=== PATIENT | male | born 1960 | race Caucasian/White ===

== ENCOUNTER → 2017-11-14 | Outpatient (CLI) | payer OTHER ==
[2017-11-14 14:45] LABS: ESTIMATED AVERAGE GLUCOSE 197 MG/DL (60-110); HEMOGLOBIN A1c 8.5 %
== END ==
LOC: M LAB 14:01
DX: E11.9 Type 2 diabetes mellitus without complications (principal)
CPT/HCPCS: 83036

== ENCOUNTER → 2018-03-20 | Outpatient (CLI) | payer OTHER ==
[2018-03-20 07:09] LABS: BASO # 0.1 10^3/uL (0.0-0.2); BASO % 0.5 % (0.0-1.0); EOS # 0.3 10^3/uL (0.0-0.50); EOS % 2.9 % (0.0-3.0); HEMATOCRIT 43.9 % (42.0-52.0); HEMOGLOBIN 14.2 g/dl (13.5-17.5); IMMATURE GRANULOCYTE % 0.5 % (0-3.0); LYMPH # 3.5 10^3/uL (1.5-4.5); LYMPH % 33.5 % (24.0-44.0); MEAN CORPUSCULAR HGB CONC 32.3 g/dl (32.0-36.5); MEAN CORPUSCULAR VOLUME 83.6 fl (80.0-96.0); MONO % 9.2 % (0.0-5.0); NEUTROPHILS # 5.6 10^3/uL (1.8-7.7); NEUTROPHILS % 53.4 % (36.0-66.0); PLATELET COUNT, AUTOMATED 373 10^3/uL (150-450); RED BLOOD COUNT 5.25 10^6/uL (4.30-6.10); RED CELL DISTRIBUTION WIDTH 14.7 % (11.5-14.5); WHITE BLOOD COUNT 10.5 10^3/uL (4.0-10.0)
[2018-03-20 07:26] LABS: ALBUMIN 4.2 GM/DL (3.2-5.2); ALBUMIN/GLOBULIN RATIO 1.14 (1.00-1.93); ALKALINE PHOSPHATASE 76 U/L (45-117); ALT/SGPT 33 U/L (12-78); ANION GAP 8 MEQ/L (8-16); AST/SGOT 20 U/L (7-37); BILIRUBIN,TOTAL 0.5 MG/DL (0.2-1.0); BLOOD UREA NITROGEN 17 MG/DL (7-18); CALCIUM LEVEL 9.2 MG/DL (8.5-10.1); CARBON DIOXIDE LEVEL 25 MEQ/L (21-32); CHLORIDE LEVEL 105 MEQ/L (98-107); CREATININE FOR GFR 1.14 MG/DL (0.70-1.30); GLOMERULAR FILTRATION RATE > 60.0 (>56); GLUCOSE, FASTING 155 MG/DL (70-100); POTASSIUM SERUM 4.2 MEQ/L (3.5-5.1); SODIUM LEVEL 138 MEQ/L (136-145); TOTAL PROTEIN 7.9 GM/DL (6.4-8.2)
[2018-03-20 07:32] LABS: ESTIMATED AVERAGE GLUCOSE 137 MG/DL (60-110); HEMOGLOBIN A1c 6.4 %
== END ==
LOC: M LAB 06:24
DX: K21.9 Gastro-esophageal reflux disease without esophagitis (principal); Z12.5 Encounter for screening for malignant neoplasm of prostate; E11.9 Type 2 diabetes mellitus without complications; I10 Essential (primary) hypertension
CPT/HCPCS: 80053

== ENCOUNTER → 2018-09-11 | Outpatient (CLI) | payer OTHER ==
[2018-09-11 07:43] LABS: BASO # 0.1 10^3/uL (0.0-0.2); BASO % 0.6 % (0.0-1.0); EOS # 0.4 10^3/uL (0.0-0.50); EOS % 3.9 % (0.0-3.0); HEMATOCRIT 40.3 % (42.0-52.0); HEMOGLOBIN 13.2 g/dl (13.5-17.5); LYMPH # 3.3 10^3/uL (1.5-4.5); LYMPH % 30.8 % (24.0-44.0); MEAN CORPUSCULAR HEMOGLOBIN 26.6 pg (27.0-33.0); MEAN CORPUSCULAR HGB CONC 32.8 g/dl (32.0-36.5); MEAN CORPUSCULAR VOLUME 81.1 fl (80.0-96.0); MONO # 1.1 10^3/uL (0.0-0.8); MONO % 9.8 % (0.0-5.0); NEUTROPHILS # 5.8 10^3/uL (1.8-7.7); NEUTROPHILS % 54.6 % (36.0-66.0); PLATELET COUNT, AUTOMATED 362 10^3/uL (150-450); RED BLOOD COUNT 4.97 10^6/uL (4.30-6.10); WHITE BLOOD COUNT 10.7 10^3/uL (4.0-10.0)
[2018-09-11 08:02] LABS: ALBUMIN 3.8 GM/DL (3.2-5.2); ALT/SGPT 29 U/L (12-78); BILIRUBIN,TOTAL 0.4 MG/DL (0.2-1.0); BLOOD UREA NITROGEN 17 MG/DL (7-18); CALCIUM LEVEL 8.5 MG/DL (8.5-10.1); CARBON DIOXIDE LEVEL 27 MEQ/L (21-32); CHLORIDE LEVEL 106 MEQ/L (98-107); CREATININE FOR GFR 1.03 MG/DL (0.70-1.30); GLOMERULAR FILTRATION RATE > 60.0 (>56); GLUCOSE, FASTING 177 MG/DL (70-100); POTASSIUM SERUM 4.4 MEQ/L (3.5-5.1); SODIUM LEVEL 139 MEQ/L (136-145); TOTAL PROTEIN 7.1 GM/DL (6.4-8.2)
[2018-09-11 10:08] LABS: HEMOGLOBIN A1c 6.6 %
== END ==
LOC: M LAB 07:05
PROVIDERS: ATTEND Nurse Practitioner Family
DX: I10 Essential (primary) hypertension (principal); E11.9 Type 2 diabetes mellitus without complications

== ENCOUNTER → 2019-04-02 | Outpatient (CLI) | payer OTHER ==
--- NOTE | 2019-04-02 13:38 | REP ---
LUMBAR SPINE SERIES: Five views. HISTORY: Low back pain. FINDINGS: Five views of the lumbar spine demonstrate preserved vertebral body heights and normal alignment. There is diffuse degenerative disc disease with disc space narrowing and osteophyte formation throughout the visualized thoracolumbar spine. Large osteophytes are visible in the lower thoracic levels. There is no evidence of spondylolysis or spondylolisthesis. Pedicles and posterior elements are intact. Sacrum and SI joints are unremarkable. IMPRESSION: Diffuse degenerative disc disease in the lower thoracic and lumbar spine. Electronically Signed by Anil Tatum MD 04/02/2019 02:40 P
--- NOTE | 2019-04-02 13:38 | REP ---
BILATERAL KNEE SERIES: 10 views. HISTORY: Bilateral knee pain. No comparison study. FINDINGS: Five views of the left knee demonstrate moderate three compartment left knee osteoarthritis with patellofemoral narrowing and spur formation and medial and lateral compartment spur formation. The lateral compartment spurring is more prominent than medial. No other joint space narrowing is appreciated. There is no evidence of erosive change or joint effusion. Five views of the right knee demonstrate patellofemoral spurring and some narrowing as well. There is dystrophic calcification in the soft tissues above the patella and lateral to the patella on the right. There is medial and lateral compartment osteoarthritic spurring of the right knee as well. No erosive changes seen. IMPRESSION: Moderate three compartment osteoarthritis. Most pronounced affecting the patellofemoral compartments. Electronically Signed by Anil Tatum MD 04/02/2019 02:39 P
== END ==
LOC: M RAD 10:52
PROVIDERS: ATTEND Nurse Practitioner Family
DX: M25.78 Osteophyte, vertebrae (principal); M17.11 Unilateral primary osteoarthritis, right knee; M51.36 Other intervertebral disc degeneration, lumbar region; M51.35 Other intervertebral disc degeneration, thoracolumbar region

== ENCOUNTER → 2019-04-02 | Outpatient (REF) | payer OTHER ==
[2019-04-02 15:26] LABS: BASO # 0.1 10^3/uL (0.0-0.2); BASO % 0.8 % (0.0-1.0); EOS # 0.4 10^3/uL (0.0-0.5); EOS % 3.7 % (0.0-3.0); HEMOGLOBIN 14.3 g/dl (13.5-17.5); LYMPH # 3.3 10^3/uL (1.5-5.0); MEAN CORPUSCULAR HGB CONC 31.8 g/dl (32.0-36.5); MEAN CORPUSCULAR VOLUME 85.1 fl (80.0-96.0); MONO # 1.2 10^3/uL (0.0-0.8); MONO % 11.9 % (0.0-5.0); NEUTROPHILS # 5.3 10^3/uL (1.5-8.5); NEUTROPHILS % 51.2 % (36.0-66.0); PLATELET COUNT, AUTOMATED 240 10^3/uL (150-450); RED BLOOD COUNT 5.29 10^6/uL (4.30-6.10); WHITE BLOOD COUNT 10.3 10^3/uL (4.0-10.0)
[2019-04-02 15:55] LABS: ALBUMIN 4.2 GM/DL (3.2-5.2); ALT/SGPT 39 U/L (12-78); BILIRUBIN,TOTAL 0.5 MG/DL (0.2-1.0); BLOOD UREA NITROGEN 21 MG/DL (7-18); CALCIUM LEVEL 9.7 MG/DL (8.5-10.1); CARBON DIOXIDE LEVEL 27 MEQ/L (21-32); CHLORIDE LEVEL 104 MEQ/L (98-107); CHOLESTEROL LEVEL 159 MG/DL (<200); CHOLESTEROL RISK RATIO 2.741 (<5); CREATININE FOR GFR 1.05 MG/DL (0.70-1.30); GLOMERULAR FILTRATION RATE > 60.0 (>56); GLUCOSE, FASTING 75 MG/DL (70-100); HDL CHOLESTEROL 58 MG/DL (>40); LDL CHOLESTEROL 73 MG/DL (<100); NON-HDL-C 101 MG/DL; POTASSIUM SERUM 5.2 MEQ/L (3.5-5.1); SODIUM LEVEL 139 MEQ/L (136-145); TOTAL PROTEIN 7.7 GM/DL (6.4-8.2); TRIGLYCERIDES LEVEL 139 MG/DL (<150)
[2019-04-02 16:28] LABS: MAU/CREAT RATIO 22.4 MCG/MG (0.0-30.0)
[2019-04-02 18:18] LABS: HEMOGLOBIN A1c 6.8 %
== END ==
LOC: M SFHCPLAZ 10:22
PROVIDERS: ATTEND Nurse Practitioner Family
DX: E11.9 Type 2 diabetes mellitus without complications (principal)

== ENCOUNTER → 2019-10-08 | Outpatient (CLI) | payer OTHER ==
[~2019-10-08] MED LIST: GLIM4TAB5 PO; METF-877 PO; NAPR-885 PO; ONGL1TAB9 PO; PATIENT COMMENTS; TRAM50TA2 PO
--- NOTE | 2019-10-08 16:15 | REP ---
Chest x-ray: Two views. History: Shortness of breath. Findings: There is dense consolidation throughout much of the left upper lobe with some slight volume loss. On lateral film this has a somewhat nodular appearance. There is pleural thickening along the left lateral chest wall. The right lung appears clear. There are degenerative changes in the thoracic spine. There is an anterior fusion anomaly affecting the first two thoracic ribs on the right. Impression: Extensive consolidation, some volume loss and nodular appearance left upper lobe with air bronchograms. Pneumonia versus hilar or perihilar mass with postobstructive change. Consider chest CT study, preferably with IV contrast. Electronically Signed by Anil Tatum MD 10/11/2019 07:50 A
== END ==
LOC: M RAD 15:13
PROVIDERS: ATTEND Family Medicine
DX: R91.8 Other nonspecific abnormal finding of lung field (principal); R06.02 Shortness of breath

== ENCOUNTER 2019-10-10 23:37 | Inpatient (IN) | payer OTHER ==
[~2019-10-10] VITALS: Ht 180.3 cm; Wt 129.4 kg
[2019-10-11] VITALS (59 sets, daily range): BP systolic 83–157; BP diastolic 50–115
[2019-10-11] MEDS ORDERED: ACETAMINOPHEN TAB 650MG DOSE (2X325MG) PO ONE
[2019-10-11 00:19] LABS: HEMATOCRIT 40.1 % (42.0-52.0); HEMOGLOBIN 12.9 g/dl (13.5-17.5); MEAN CORPUSCULAR HEMOGLOBIN 25.6 pg (27.0-33.0); MEAN CORPUSCULAR HGB CONC 32.2 g/dl (32.0-36.5); MEAN CORPUSCULAR VOLUME 79.7 fl (80.0-96.0); PLATELET COUNT, AUTOMATED 410 10^3/uL (150-450); RED BLOOD COUNT 5.03 10^6/uL (4.30-6.10)
[2019-10-11 00:20] LABS: WHITE BLOOD COUNT 32.3 10^3/uL (4.0-10.0)
[2019-10-11] MEDS ORDERED: ISOVUE-370 76% 100ML VIAL (Q9967) As Ordered ONE (00:21)
[2019-10-11] MEDS ORDERED: PIPERACILLIN/TAZOBACTAM SOD 3.375 GM in D5W MINI-BAG PLUS 50 ML IV ONE (00:30)
[2019-10-11 00:36] LABS: LYMPHOCYTES 2 % (16-44); MONOCYTES 5 % (0-5); NEUTROPHILS 89 % (28-66)
[2019-10-11 00:41] LABS: PLATELET ESTIMATE INCREASED (NORMAL)
[2019-10-11 00:42] LABS: ANISOCYTOSIS 1+; MICROCYTOSIS 1+
[2019-10-11 00:43] LABS: POLYCHROMASIA 1+
[2019-10-11] MEDS ORDERED: METF-877 PO (00:43)
[2019-10-11] MEDS ORDERED: ONGL1TAB9 PO (00:43)
[2019-10-11] MEDS ORDERED: TRAM50TA2 PO (00:43)
[2019-10-11] MEDS ORDERED: NAPR-885 PO (00:43)
[2019-10-11] MEDS ORDERED: GLIM4TAB5 PO (00:43)
[2019-10-11 00:44] LABS: PLATELET CLUMPS SMALL AMT
[2019-10-11 00:46] LABS: TOXIC GRANULATION 1+
[2019-10-11] MEDS ORDERED: PATIENT COMMENTS (00:50)
--- NOTE | 2019-10-11 00:50 | REPVR ---
PROCEDURE INFORMATION: Exam: CT Head Without Contrast Exam date and time: 10/10/2019 12:42 AM Age: 58 years old Clinical indication: Pain; Headache; Additional info: Altered mental status TECHNIQUE: Imaging protocol: Computed tomography of the head without contrast. Radiation optimization: All CT scans at this facility use at least one of these dose optimization techniques: automated exposure control; mA and/or kV adjustment per patient size (includes targeted exams where dose is matched to clinical indication); or iterative reconstruction. COMPARISON: No relevant prior studies available. FINDINGS: There are no intra-or extra-axial hemorrhages or fluid collections. There is no mass effect or midline shift. Ventricles are symmetrical and nondilated for age. There are no focal parenchymal abnormalities. No calvarial fractures. Visualized paranasal sinuses and mastoid air cells are clear. IMPRESSION: No acute intracranial process. No intracranial hemorrhage. Electronically signed by: Mann Meyer On 10/11/2019 00:50:20 AM
--- NOTE | 2019-10-11 00:56 | REPVR ---
PROCEDURE INFORMATION: Exam: CT Angiography Chest With Contrast Exam date and time: 10/10/2019 12:42 AM Age: 58 years old Clinical indication: Mass, lump, or swelling in the chest; Additional info: Cough, cxr showed infiltrate vs mass on 10/07 TECHNIQUE: Imaging protocol: Computed tomographic angiography of the chest with intravenous contrast. 3D rendering: MIP and/or 3D reconstructed images were created by the technologist. Radiation optimization: All CT scans at this facility use at least one of these dose optimization techniques: automated exposure control; mA and/or kV adjustment per patient size (includes targeted exams where dose is matched to clinical indication); or iterative reconstruction. Contrast material: ISO 370; Contrast volume: 75 ml; Contrast route: IV; COMPARISON: MO Chest, 2 view PA, Lat 10/08/2019 3:36 PM FINDINGS: Pulmonary arteries: The main pulmonary artery measures 24 mm. No central pulmonary embolism is identified. Aorta: The ascending thoracic aorta measures 32 mm. Lungs: Near complete consolidation of the left upper lobe and lingula with minimal patchy infiltrates about the periphery of the consolidation. Pleural space: Unremarkable. No pneumothorax. No pleural effusion. Heart: Unremarkable. No cardiomegaly. No pericardial effusion. Mediastinum: Minimal hiatal hernia with trace retention of fluid in the distal esophagus. Liver: The liver attenuation is 4 Hounsfield units and the spleen is 70 Hounsfield units. Stomach and bowel: Degenerative spurring anteriorly about the thoracolumbar junction. Lymph nodes: Small scattered mediastinal nodes, greatest in the subcarinal region which are upper normal. Bones/joints: Unremarkable. No acute fracture. Soft tissues: Unremarkable. IMPRESSION: 1. Near complete consolidation of the left upper lobe and lingula with infiltrates about the periphery of the dense consolidation consistent with lobar pneumonia. 2. Minimal hiatal hernia with trace retention of fluid in the hernia and distal esophagus which may reflect poor peristaltic clearance or possibly reflux. 3. Fatty infiltration of the liver. 4. Otherwise negative CTA chest. No central pulmonary embolism is identified. Electronically signed by: Yaron Goyal On 10/11/2019 00:56:05 AM
[2019-10-11 00:58] LABS: ACETAMINOPHEN LEVEL < 2.0 UG/ML (10.0-30.0); ACETONE/KETONE 7.05 MG/DL (<2.81); ALBUMIN 1.8 GM/DL (3.2-5.2); ALT/SGPT 117 U/L (12-78); BILIRUBIN,DIRECT 0.6 MG/DL (0.0-0.2); BILIRUBIN,TOTAL 0.7 MG/DL (0.2-1.0); BLOOD UREA NITROGEN 35 MG/DL (7-18); CALCIUM LEVEL 8.8 MG/DL (8.5-10.1); CARBON DIOXIDE LEVEL 20 MEQ/L (21-32); CHLORIDE LEVEL 90 MEQ/L (98-107); CK-MB VALUE MASS 5.8 NG/ML (<3.6); CPK CREATINE PHOSPHOKINASE 282 U/L (39-308); ETHYL ALCOHOL (ETHANOL) < 0.003 % (0.000-0.010); GLOMERULAR FILTRATION RATE 47.3 (>56); GLUCOSE, FASTING 808 MG/DL (70-100); MB/CK RELATIVE INDEX 2.06 (< OR =4); POTASSIUM SERUM 4.7 MEQ/L (3.5-5.1); SALICYLATE LEVEL < 1.7 MG/DL (5.0-30.0); SODIUM LEVEL 124 MEQ/L (136-145); THYROID STIMULATING HORMONE 0.487 uIU/ML (0.358-3.740); TOTAL PROTEIN 6.2 GM/DL (6.4-8.2); TROPONIN I < 0.02 NG/ML (< 0.10)
[2019-10-11] MEDS ORDERED: NS IV ONE (01:00)
[2019-10-11 01:01] LABS: AMPHETAMINES LEVEL URINE NEGATIVE (NEGATIVE); BARBITURATES URINE NEGATIVE (NEGATIVE); BENZODIAZEPINES URINE NEGATIVE (NEGATIVE); CANNABINOIDS URINE POSITIVE (NEGATIVE); COCAINE METABOLITE URINE NEGATIVE (NEGATIVE); METHADONE URINE NEGATIVE (NEGATIVE); OPIATES URINE NEGATIVE (NEGATIVE); PHENCYCLIDINE URINE NEGATIVE (NEGATIVE)
[2019-10-11 01:21] LABS: OSMOLALITY SERUM 320 MOSM/KG (275-295)
[2019-10-11 03:10] LABS: FERRITIN 638 NG/ML (26-388); IRON (FE) 20 UG/DL (65-175); MAGNESIUM LEVEL 2.4 MG/DL (1.8-2.4); PERCENT SATURATION 11.6 % (19.7-50.0); PHOSPHORUS LEVEL 2.9 MG/DL (2.5-4.9); TOTAL IRON BINDING CAPACITY 172 UG/DL (250-450)
--- NOTE | 2019-10-11 03:29 | REPVR ---
PROCEDURE INFORMATION: Exam: US Retroperitoneal Limited, Kidneys Exam date and time: 10/11/2019 3:14 AM Age: 59 years old Clinical indication: Abnormal findings; Abnormal lab test; Abnormal kidney function lab tests; Additional info: Sam TECHNIQUE: Imaging protocol: Real-time ultrasound of the retroperitoneum with image documentation. Examination was focused on the kidneys. COMPARISON: No relevant prior studies available. FINDINGS: Right kidney: The right kidney measures 15.0 cm in its cephalocaudad dimension and 6.7 x 7.5 cm in diameter. No mass, cyst or hydronephrosis. Echogenicity is normal. Left kidney: The left kidney measures 13.0 cm in its cephalocaudad dimension and 6.1 x 5.9 cm in diameter. No mass, cyst or hydronephrosis. Bladder: The urinary bladder is normal. IMPRESSION: Negative renal sonogram. Electronically signed by: Yaron Goyal On 10/11/2019 03:28:54 AM
--- NOTE | 2019-10-11 03:33 | HPEPDOC ---
[facility] Medical History & Physical Date of Admission Oct 11, 2019 Date of Service: Oct 11, 2019 Primary Care Physician: HARJEET HOUSER Attending Physician: MARK HERNANDEZ MD History and Physical TIME OF SERVICE: 2:15 AM CHIEF COMPLAINT: Hallucinations HISTORY OF PRESENT ILLNESS: This is a 59-year-old male that was brought in by his son because he was having hallucinations today. The patient remembers seeing people in his house when he was there. Over the last week he's been having a productive cough, runny nose, weakness and shortness of breath. 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 He denies having any sick contacts. He denies having chest pain, nausea, vomiting, diarrhea, or any other acute complaints right now. The patient's son, who has been doing his father's groceries, added that his father has not eaten for several days, and dropped his ice cream and soda earlier on today. Per Dr. Richmond the patient received Tylenol, IV fluids and Zosyn for management of sepsis due to pneumonia. REVIEW OF SYSTEMS: 12 point review of systems negative except as listed in HPI PAST MEDICAL/ SURGICAL HISTORY: NIDDM Obesity Fatty liver GERD Hiatial hernia Hernia repair SOCIAL HISTORY: She is tobacco products He doesn't drink. He doesn't use alcohol FAMILY HISTORY: Diabetes CVD Colon cancer HTN ALLERGIES: Please see below. HOME MEDICATIONS: Please see below. PHYSICAL EXAMINATION: Vital Signs Date Time Temp Pulse Resp B/P (MAP) Pulse Ox O2 Delivery O2 Flow Rate FiO2 10/10/19 23:37 98.7 161 22 146/88 (107) 92 Room Air 10/11/19 00:58 2.0 GEN: Obese / well developed/ NAD INTEGUMENT: slightly flushed/spider angiomata on cheeks / has varicose veins on his lower extremities HEENT: NCAT /mucus membranes moist and pink CVS: Tachycardic up to the 150s/ radial pulses bounding/trace lower extremity edema LUNGS: Has difficulty speaking full sentences without stopping to take a breath /is using accessory muscles to breathe/ has productive cough / breath sounds are diminished on the left / there is dullness to percussion on the left ABDOMEN: Contour (obese) / soft & not tender with palpation MSK/EXTREMITIES: range of motion intact in all 4 extremities NEURO: CN 2-12 are grossly intact / speech is not dysarthric / strength is 5/5 / DTRs (0-4+) PSYCH: alert and oriented to person place and but not time, he thought it was the end of September / able to understand and follow all commands LABORATORY DATA: Urine Color YELLOW, Urine Appearance CLEAR, Urine pH 6.0, Urine Specific [place] 1.027, Urine Protein NEGATIVE, Urine Glucose (UA) 3+H, Urine Ketones TRACEH, Urine Blood 1+H, Urine Nitrite NEGATIVE, Urine Bilirubin NEGATIVE, Urine Urobilinogen 0.2, Urine Leukocyte Esterase NEGATIVE, Urine WBC (Auto) 0, Urine RBC (Auto) 1, Urine Hyaline Casts (Auto) 0, Urine Bacteria (Auto) NEGATIVE, Urine Squamous Epithelial Cells 0, Urine Sperm (Auto) , Anion Gap 14, Glomerular Filtration Rate 47.3L, Osmolality 320H, Lactic Acid Level 8.1*H, Calcium Level 8.8, Total Bilirubin 0.7, Direct Bilirubin 0.6H, Aspartate Amino Transf (AST/SGOT) 199H, Alanine Aminotransferase (ALT/SGPT) 117H, Alkaline Phosphatase 157H, Ammonia < 10, Total Creatine Kinase 282, Creatine Kinase MB 5.8H, Creatine Kinase MB Relative Index 2.06, Troponin I < 0.02, Total Protein 6.2L, Albumin 1.8L, Albumin/Globulin Ratio 0.41L, Thyroid Stimulating Hormone (TSH) 0.487, Salicylates Level < 1.7L, Urine Opiates Screen NEGATIVE, Urine Methadone Screen NEGATIVE, Acetaminophen Level < 2.0L, Urine Barbiturates Screen NEGATIVE, Urine Phencyclidine Screen NEGATIVE, Urine Amphetamines Screen NEGATIVE, Urine Benzodiazepines Screen NEGATIVE, Urine Cocaine Metabolite Screen NEGATIVE, Urine Cannabinoids Screen POSITIVEH, Ethyl Alcohol Level < 0.003, B-Hydroxybutyrate 7.05H 10/11/19 00:10: POC Glucose (Misc Panel) > 700*H, POC Sodium (Misc Panel) 125L, POC Potassium (Misc Panel) 4.6, POC Chloride (Misc Panel) 90L, POC Total CO2 (Misc Panel) 19. 0L, POC Blood Urea Nitrogen (Misc Panel 34H, POC Ionized Calcium (Misc Panel) 4.2L, POC Creatinine (Misc Panel) 1.0, POC Hematocrit (Misc Panel) 43.0 10/11/19 00:30: POC Total CO2 (Misc Panel) 20.0L, POC pH (Misc Panel) 7.420, POC Base Excess (Misc Panel) -5.0L, POC Saturated Percent O2 (Misc) 97, POC pO2 (Misc Panel) 91.0, POC pCO2 (Misc Panel) 30.0L, POC HCO3 (Misc Panel) 19.5L IMAGING: CT head "IMPRESSION: No acute intracranial process. No intracranial hemorrhage." CT chest IMPRESSION: 1. Near complete consolidation of the left upper lobe and lingula with infiltrates about the periphery of the dense consolidation consistent with lobar pneumonia. 2. Minimal hiatal hernia with trace retention of fluid in the hernia and distal esophagus which may reflect poor peristaltic clearance or possibly reflux. 3. Fatty infiltration of the liver. 4. Otherwise negative CTA chest. No central pulmonary embolism is identified. " MICROBIOLOGY: 10/11/19 Respiratory Virus Panel (PCR) ([facility]) - Final, Complete 10/11/19 Blood Culture, Received Pending 10/11/19 Blood Culture, Received Pending ASSESSMENT: Mr. Celestin is a 59-year-old with a history of NIDDM, fatty liver, and obesity who is admitted for management of metabolic encephalopathy, sepsis secondary to pneumonia, HHS, and ROSITA. PLAN: 1. Multifactorial Metabolic Encephalopathy Due to infection and hyperglycemia At the time of my exam, the patient was lucid but according to the ER staff he has periods of confusion Plan: admit to ICU / frequent neurochecks/ treat infection and hyperglycemia 2. Sepsis 2/2 left lobar CAP SIRS criteria include: Temp >101 / HR >90 / WBC >12 / RR> 20 EKG machine read showed aflutter but this is more likely sinus tachycardia Lactic acid was 8.1 ABG, and CT chest reviewed QSOFA score = 2 points = sepsis likely NEWS2 Score = 13 points = high risk PORT/PSI Score to predict risk of mortality in pt w CAP = 159 points = 27-29.2% risk of mortality Code Status full Plan: telemetry, f/u repeat EKG once tachycardia has resolved / continuous pulse ox & supplemental O2/ aspiration precautions / sepsis protocol w repeat lactic acid / c/w zosyn add levofloxacin /f/u blood cx, UA w Cx, MRSA, sputum Cx, strep pnemo, legionella, respiratory panel, procalcitonin / Acetaminophen PRN for fever / target MAP 65 to 70 / f/u Is and Os with target UOP of atleast 0.5 ml/kg/H / target serum glucose 140-180 while acutely ill 2. HHS / NIDDM2 with hyperosmolality without comma Source of infection is likely PNA Diagnostic criteria for HHS: gluc >600 + osmol >320 + pH >7.3 The hyponatremia is pseudohyponatremia 2/2 hyperglycemia Plan: NPO / NS @ 250ml/h w 20 meq of KCl / Insulin drip per protocol/ f/u blood cx / f/u accuchecks Q1H, .BMP Q4H & A1C / when his serum glucose reaches 300 we will switch to D5 w 1/2 NS @ 150-250ml/H / DM education in a day or so when the sepsis has resolved 3. Anion Gap Metabolic Acidosis 2/2 Lactic Acidosis He also has co-existing respiratory alkalosis due to tachypnea and metabolic alkalosis 2/2 renal failure Plan: treat infection / IVF 4. Acute Renal Failure 2/2 infection and hyperglycemia Plan: Is/Os / IVF / f/u ulytes for FENa or FEUrea / renal US 5. Microcytic anemia possibly 2/2 sepsis Plan: f/u, retic #, iron studies, stool occult / keep Hg >7 6. Transaminitis likely shock liver 2/2 sepsis Plan: trend LFTs 7. Tobacco & THC Use Plan: smoking cessation education in a few days 8. Obesity with co-existing DM Complicates care Since the BMI >35 and the patient has DM he is a candidate for bariatric surgery Plan: f/u A1C / he can f/u w his PCP on an out patient basis for STOP BANG questionnaire, transcribing operators supervisor consult & referral to Bariatric Surgeon / recommend cardiovascular exercise for 40 min 4-5 days a week DVT PROPHYLAXIS: Heparin DISPOSITION: home after less than 2 midnight's stay Home Medications Scheduled Glimepiride (Glimepiride) 4 Mg Tablet, 4 MG PO DAILY Metformin HCl (Metformin HCl) 1,000 Mg Tablet, 1,000 MG PO BID Saxagliptin HCl (Onglyza) 5 Mg Tablet, 5 MG PO DAILY Scheduled PRN Naproxen (Naproxen) 500 Mg Tablet, 500 MG PO DAILY PRN for PAIN Tramadol HCl (Tramadol HCl) 50 Mg Tablet, 50 MG PO DAILY PRN for PAIN Miscellaneous Medications [Patient Comments] PATIENT'S SON STATES HE DOES NOT KNOW WHAT HIS FATHER TOOK TODAY FAR PRESCRIBED MEDS OR WHETHER HE HAS BEEN TAKING THEM AT ALL. MEDICATIONS LISTED WERE FILLED SEPTEMBER OF THIS YEAR Allergies Coded Allergies: No Known Allergies (Unverified , 10/10/19) A-FIB/CHADSVASC A-FIB History Current/History of A-Fib/PAF?: No Current PO Anticoag Therapy: No MARK HERNANDEZ MD Oct 11, 2019 03:33
[2019-10-11] MEDS ORDERED: METOPROLOL 5 MG/5 ML VIAL As Ordered ONE (03:57)
[2019-10-11] MEDS ORDERED: METOPROLOL 5 MG/5 ML VIAL IV STA ×2 (03:58→04:13)
[2019-10-11] MEDS: KCL 20MEQ in NS 1000ML 1,000 ML IV SCH ×5 (04:04→18:06)
[2019-10-11] MEDS ORDERED: FUROSEMIDE 20MG/2ML VIAL (J1940) IV ONE (04:30)
[2019-10-11] MEDS ORDERED: ETOMIDATE INJ 20MG/10ML VIAL As Ordered ONE (04:40)
[2019-10-11] MEDS ORDERED: PROPOFOL 1,000 MG/100 ML VIAL As Ordered ONE (04:41)
[2019-10-11] MEDS ORDERED: SUCCINYLCHOLINE INJ 200 MG/10 ML VIAL (J0330) As Ordered ONE (04:41)
[2019-10-11] MEDS ORDERED: propofoL 1,000 MG in IV 1 EA IV SCH (04:45)
[2019-10-11] MEDS ORDERED: ETOMIDATE INJ 20MG/10ML VIAL IV STA (04:45)
[2019-10-11] MEDS ORDERED: SUCCINYLCHOLINE INJ 200 MG/10 ML VIAL (J0330) IV STA (04:45)
[2019-10-11 04:50] LABS: HEMATOCRIT 36.2 % (42.0-52.0); HEMOGLOBIN 11.9 g/dl (13.5-17.5); MEAN CORPUSCULAR HEMOGLOBIN 25.9 pg (27.0-33.0); MEAN CORPUSCULAR HGB CONC 32.9 g/dl (32.0-36.5); MEAN CORPUSCULAR VOLUME 78.7 fl (80.0-96.0); PLATELET COUNT, AUTOMATED 386 10^3/uL (150-450)
[2019-10-11 04:51] LABS: VENOUS BASE EXCESS -3.9 (-2.0-2.0); VENOUS HCO3 21.2 MEQ/L (23.0-27.0); VENOUS PARTIAL PRESSURE CO2 38.9 mmHg (38.0-50.0); VENOUS PARTIAL PRESSURE O2 149.6 mmHg (30.0-50.0); VENOUS PH 7.355 UNITS (7.330-7.430); VENOUS STANDARD HCO3 21.3 MEQ/L; VENOUS TOTAL CO2 22.4 MEQ/L (24.0-28.0)
[2019-10-11 04:56] LABS: WHITE BLOOD COUNT 36.1 10^3/uL (4.0-10.0)
[2019-10-11] MEDS ORDERED: LevoFLOXacin IV 750 MG in IV 1 EA IV SCH (05:00)
[2019-10-11 05:13] LABS: ANISOCYTOSIS 1+; LYMPHOCYTES 8 % (16-44); MONOCYTES 3 % (0-5); NEUTROPHILS 88 % (28-66); PLATELET CLUMPS SMALL AMT; PLATELET ESTIMATE INCREASED (NORMAL); TOXIC GRANULATION 1+
[2019-10-11 05:14] LABS: MICROCYTOSIS 1+; POLYCHROMASIA 1+
[2019-10-11 05:21] LABS: BLOOD UREA NITROGEN 35 MG/DL (7-18); CARBON DIOXIDE LEVEL 22 MEQ/L (21-32); CHLORIDE LEVEL 102 MEQ/L (98-107); GLOMERULAR FILTRATION RATE > 60.0 (>56); GLUCOSE, FASTING 566 MG/DL (70-100); POTASSIUM SERUM 5.4 MEQ/L (3.5-5.1); SODIUM LEVEL 133 MEQ/L (136-145); TROPONIN I < 0.02 NG/ML (< 0.10)
[2019-10-11] MEDS ORDERED: INSULIN IV RATE CHANGE DOCUMENTATION ML/HR XX SCH (05:30)
[2019-10-11] MEDS ORDERED: INSULIN HUMAN REGULAR 100 UNITS in NS 99 ML IV SCH (05:30)
[2019-10-11] MEDS ORDERED: MORPHINE 2 MG/ML 1ML VIAL (J2270) IV PRN (05:45)
[2019-10-11] MEDS: HEPARIN SOD (PORCINE) 5000UNITS/ML VIAL (J1644 PER 1000UNITS) SC SCH ×2 (05:53→17:31)
[2019-10-11] MEDS ORDERED: DEXTROSE 50% 50 ML SYRINGE IV PRN (06:15)
[2019-10-11] MEDS ORDERED: GLUCAGON FOR INJ 1 MG VIAL (J1610) SC PRN (06:15)
[2019-10-11] MEDS ORDERED: GLUCOSE 4 GM CHEW TABLET PO PRN (06:15)
[2019-10-11] MEDS: propofoL 1,000 MG in IV 1 EA IV SCH ×7 (06:18→23:03)
[2019-10-11] MEDS: HumaLOG INSULIN (NovoLOG) PER UNIT SC SCH ×5 (06:26→21:52)
[2019-10-11] MEDS: PIPERACILLIN/TAZOBACTAM SOD 4.5 GM in D5W MINI-BAG PLUS 100 ML IV SCH ×4 (06:27→23:08)
[2019-10-11 06:33] LABS: ABG BASE EXCESS -4.2 (-2.0-2.0); ABG HCO3 21.9 MEQ/L (22.0-26.0); ABG O2 SATURATION 99.9 % (95.0-99.0); ABG PARTIAL PRESSURE CO2 43.7 mmHg (35.0-45.0); ABG STANDARD HCO3 21.1 MEQ/L (22.0-26.0); ABG TOTAL CO2 23.2 MEQ/L (22.0-29.0); ABG pH (ARTERIAL) 7.317 UNITS (7.350-7.450)
--- NOTE | 2019-10-11 08:05 | REP ---
Portable chest x-ray: Single view. History: Post intubation. Comparison chest x-ray October 08, 2019. Comparison chest CT study October 11, 2019 Endotracheal tube is seen in good position at the level of the proximal clavicles. NG tube enters left upper quadrant. Homogeneous parenchymal opacification of the left upper lobe is again seen, more prominent than on October 08 2019. Right lung remains clear. The pleural angles are sharp. Heart is not enlarged. Impression: Extensive lobar consolidation left upper lobe. Progressed since October 08, 2019. Endotracheal tube in good position. Electronically Signed by Anil Tatum MD 10/11/2019 07:58 A
[2019-10-11 08:12] LABS: ALBUMIN 1.6 GM/DL (3.2-5.2); ALT/SGPT 105 U/L (12-78); BILIRUBIN,DIRECT 0.3 MG/DL (0.0-0.2); BILIRUBIN,TOTAL 0.7 MG/DL (0.2-1.0); TOTAL PROTEIN 5.6 GM/DL (6.4-8.2)
[2019-10-11] MEDS: PANTOPRAZOLE 40MG VIAL (C9113 PER 1) IV SCH (08:31)
[2019-10-11 08:44] LABS: OSMOLALITY URINE 652 MOSM/KG (500-800)
[2019-10-11] MEDS ORDERED: CHLORHEXIDINE GLUCONATE 0.12 % 15ML UDC (PERIDEX ORAL RINSE) MT SCH (09:00)
[2019-10-11] MEDS ORDERED: NS 1,000 ML IV ONE ×3 (09:00→11:00)
[2019-10-11 09:09] LABS: SODIUM,RANDOM URINE < 10 MEQ/L
[2019-10-11 09:29] LABS: BLOOD UREA NITROGEN 39 MG/DL (7-18); CALCIUM LEVEL 8.1 MG/DL (8.5-10.1); CARBON DIOXIDE LEVEL 23 MEQ/L (21-32); CHLORIDE LEVEL 105 MEQ/L (98-107); CREATININE FOR GFR 1.26 MG/DL (0.70-1.30); GLOMERULAR FILTRATION RATE > 60.0 (>56); GLUCOSE, FASTING 569 MG/DL (70-100); POTASSIUM SERUM 4.5 MEQ/L (3.5-5.1); SODIUM LEVEL 138 MEQ/L (136-145)
[2019-10-11] MEDS ORDERED: HumaLOG INSULIN (NovoLOG) PER UNIT SC ONE (09:45)
[2019-10-11] MEDS: MIDAZOLAM INJ 2MG/2ML VIAL (J2250 PER 1MG) IV PRN ×4 (10:56→18:06)
[2019-10-11] MEDS: METOPROLOL 5 MG/5 ML VIAL IV SCH ×3 (11:07→11:25)
[2019-10-11 11:59] LABS: HEMOGLOBIN A1c 10.3 %
[2019-10-11] MEDS: ALBUTEROL 90 MCG/ACT 8GM HFA INHALER INH SCH ×4 (12:00→23:23)
--- NOTE | 2019-10-11 12:46 | CR ---
DATE OF CONSULTATION: 10/11/2019 REASON FOR CONSULTATION: I was asked by Dr. Ojeda to emergently evaluate Mr. Celestin for acute hypoxemic respiratory failure leading to mechanical ventilation. HISTORY OF PRESENT ILLNESS: Mr. Celestin is a 59-year-old gentleman who was brought to the emergency department by his son after he was having hallucinations. Per the history and physical (H and P) in [facility] and my discussions with Dr. Ojeda, he had been having a productive cough, runny nose, weakness and shortness of breath over the past week. He reportedly denied any sick contacts. He had no history of chest pain, nausea, emesis, diarrhea or other acute symptoms outside of that listed above. In reviewing his admission H and P, Mr. Celestin's son has been doing his father's grocery shopping and also had stated his father had not eaten for several days and that he physically dropped his ice cream and soda earlier in the day. His workup in the emergency department included a chest CT scan which showed a significant left upper lobe consolidated region consistent with a pneumonic process. He was treated in the emergency room with Tylenol, fluids and Zosyn. He also had an elevated lactic acid. My initial call from Dr. Ojeda was around 2:30 this morning to inform me that he needed an intensive care bed for an insulin drip. I next received a call around 4:30 this morning stating that his respiratory status was worsening. He was satting in the low 90s on 2 liters by nasal cannula, but was tachypneic, diaphoretic and tachycardiac. Because of his symptoms, the intubation team was activated and he was intubated using COVID-19 protocol. I was contacted at the same time as the intubation team was called to manage his mechanical ventilator. ALLERGIES: NO KNOWN DRUG ALLERGIES. MEDICATIONS ON ADMISSION: Glimepiride 4 mg by mouth every day, metformin 1000 mg by mouth twice a day, naproxen 500 mg by mouth as needed, Onglyza 5 mg by mouth every day, tramadol 50 mg by mouth daily as needed, PAST MEDICAL HISTORY: 1. Diabetes mellitus, type 2. 2. Obesity. 3. Fatty liver. 4. Gastroesophageal reflux disease (GERD). SOCIAL HISTORY: There are various accounts in the records as to whether or not he smokes or does not smoke. Occasional alcohol usage. 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 REVIEW OF SYSTEMS: Unattainable secondary to intubation. FAMILY HISTORY: Diabetes mellitus, cardiovascular disease (CVD), colon cancer, hypertension. PHYSICAL EXAMINATION: General: Mr. Celestin is intubated and sedated. Temperature 101.1, pulse 140s, respiratory rate 30s, blood pressure 117/55, SPO2 99% on an FIO2 of 0.75. HEENT: Anicteric. Pupils 3 mm and reactive. Nares patent bilaterally. Moist mucosa. Oropharynx: Endotracheal (ET) tube and orogastric (OG) tube in place. Neck: Supple, without thyromegaly or masses. Trachea midline. Without apparent jugular venous distention (JVD). Lymph: Without cervical or supraclavicular lymphadenopathy. Chest: Normal shape. Lungs: Symmetric excursion, good air entry, inspiratory crackles over the left upper lobe region. No rhonchi or wheezes. Normal I:E. No accessory muscle usage or retractions. Cardiovascular: Tachycardiac, regular rhythm, normal S1, S2. No murmur, rub or gallop appreciated. Abdomen: Positive, but diminished bowel sounds. Soft. Nondistended. No hepatosplenomegaly or masses appreciated. Extremities: Warm and well-perfused. Without clubbing, cyanosis or significant edema. Palpable pedal pulses bilaterally. LABORATORY DATA: CBC from this morning showed a hemoglobin of 11.9, hematocrit 36.2, platelet count 386,000, and white blood cell count 36,100 with a differential 88% neutrophils, 1% bands, 8% lymphocytes, and 3% monocytes. Chemistries show sodium 133, potassium 5.4, chloride 102, bicarbonate 22, anion gap 9, BUN 35, creatinine 1.2, glucose 566, calcium 8.0, total bilirubin 0.7, direct bilirubin 0.3, AST 166, ALT 105, alkaline phosphatase 144. Troponin I less than 0.02. Total protein 5.6. Albumin 1.6. Initial lactic acid was 8.4 with a reflexed lactic acid 3.9. Other admitting labs include a ferritin of 638, osmolality of 320 and TSH of 0.49. A blood gas that is listed as venous just prior to intubation was 7.36/39/150, measured saturation 99% and a base excess of -3.9. Toxicology screen on admission showed salicylates less than 1.7, acetaminophen less than 2.0 and alcohol less than 0.03. Beta hydroxybutyrate 7.05 and was positive for cannabinoids. I reviewed his initial chest CT scan which showed normal-appearing cardiac silhouette and pulmonary vascular shadows. There are small mediastinal lymph nodes, but no pathologic lymph nodes. There is near complete consolidation of the left upper lobe. I reviewed his chest x-ray as well as the report post intubation. That x-ray shows normal-appearing cardiac silhouette and pulmonary vascular shadows. The right lung remains clear. In the left lung there remains a dense left upper lobe consolidated region which appears to have progressed. IMPRESSION: 1. Acute hypoxemic respiratory failure secondary to lobar pneumonia. 2. Lobar pneumonia, community acquired. 3. Diabetes mellitus. 4. Gastroesophageal reflux disease. RECOMMENDATIONS: 1. We will use a lung protective strategy. His 6 cc/kg/predicted body weight tidal is 450 mL. 2. Would continue antibiotics aimed at community acquired pneumonia. Consider Rocephin and doxycycline. 3. Agree with initially using sliding scale insulin. Depending on his response, he may require an insulin drip. 4. Will send a sputum for gram stain and culture. 5. Because of his presenting symptoms, a COVID-19 specimen has been sent. 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 I feel that this is most likely a community acquired pneumonia (CAP). His chest x-ray findings are not consistent with a viral pneumonic process. Given this information, I do not recommend treatment with Plaquenil at this time. 6. This is not acute respiratory distress syndrome (ARDS). Therefore, I decreased the PEEP to 5 given that he was likely over distending his good lung and this is a lobar process. Critical care time 55 minutes, not including procedure time. DILAN
[2019-10-11 13:41] LABS: HEMATOCRIT 33.9 % (42.0-52.0); MEAN CORPUSCULAR HEMOGLOBIN 26.2 pg (27.0-33.0); MEAN CORPUSCULAR HGB CONC 32.4 g/dl (32.0-36.5); MEAN CORPUSCULAR VOLUME 80.7 fl (80.0-96.0); PLATELET COUNT, AUTOMATED 333 10^3/uL (150-450)
[2019-10-11 13:53] LABS: INR 1.21
[2019-10-11 14:04] LABS: WHITE BLOOD COUNT 30.7 10^3/uL (4.0-10.0)
[2019-10-11 14:06] LABS: LYMPHOCYTES 4 % (16-44); NEUTROPHILS 95 % (28-66)
[2019-10-11 14:07] LABS: ANISOCYTOSIS 2+; PLATELET ESTIMATE NORMAL (NORMAL); POLYCHROMASIA 2+
[2019-10-11 14:10] LABS: ALBUMIN 1.3 GM/DL (3.2-5.2); ALT/SGPT 97 U/L (12-78); BILIRUBIN,TOTAL 0.5 MG/DL (0.2-1.0); BLOOD UREA NITROGEN 31 MG/DL (7-18); CALCIUM LEVEL 7.4 MG/DL (8.5-10.1); CARBON DIOXIDE LEVEL 26 MEQ/L (21-32); CHLORIDE LEVEL 113 MEQ/L (98-107); CREATININE FOR GFR 0.93 MG/DL (0.70-1.30); GLOMERULAR FILTRATION RATE > 60.0 (>56); GLUCOSE, FASTING 334 MG/DL (70-100); MAGNESIUM LEVEL 2.7 MG/DL (1.8-2.4); PHOSPHORUS LEVEL 2.3 MG/DL (2.5-4.9); POTASSIUM SERUM 4.9 MEQ/L (3.5-5.1); SODIUM LEVEL 143 MEQ/L (136-145); TOTAL PROTEIN 5.2 GM/DL (6.4-8.2)
[2019-10-11] MEDS ORDERED: HumuLIN R (REGULAR) INSULIN (NovoLIN R) **100U/ML** PER UNIT IV STA ×2 (15:12→19:07)
[2019-10-11] MEDS ORDERED: VANCOMYCIN HCL 750 MG, VIAL MATE ADAPTER 1 EACH in D5W 250 ML IV SCH (15:15)
[2019-10-11] MEDS: VANCOMYCIN HCL 1,000 MG, VIAL MATE ADAPTER 1 EACH in D5W 250 ML IV SCH ×3 (17:01→23:02)
--- NOTE | 2019-10-11 18:36 | ECGEPIP ---
[facility] Test Date: 2019-10-11 Pat Name: KACI ROBLERO Department: Room: [place] [address] Gender: Male [employer]: RF : 1960 Requested By: MARK HERNANDEZ Order Number: [id number] Reading MD: Mann Estrada Measurements Intervals [place] Rate: 157 P: [place]: 0 QRS: -2 QRSD: 119 T: -81 QT: 272 QTc: 440 Interpretive Statements ATRIAL FLUTTER/TACHYCARDIA WITH RAPID VENTRICULAR RESPONSE INCOMPLETE RIGHT BUNDLE BRANCH BLOCK Nonspecific ST/T wave abnormalities. Different lead placement of V1 and V2 but otherwise no change from 00 11 AM Electronically Signed on 10-11-2019 18:36:05 EDT by Mann Estrada
[2019-10-11] MEDS: ACETAMINOPHEN *IV* 1,000 MG in IV 1 EA IV PRN (18:51)
--- NOTE | 2019-10-11 20:22 | IPNPDOC ---
Text Note Date of Service The patient was seen on 10/11/19. NOTE S: Pt examined at bedside. Continues to be on the ventilator and tachypneic. Continues to spike fevers with significant leukocytosis and hyperglycemia since he was admitted overnight. Still hyperglycemic in the 500s without anion gap. Continues to be tachycardic, which responded well with 1 dose of Lopressor 5 mg IV, however found to have a brief episode of nonsustained A. fib and spontaneously converted back to normal sinus rhythm. PE: PHYSICAL EXAMINATION: VITAL SIGNS: Please see below. GENERAL: No distress HEENT: Normocephalic, atraumatic, moist mucous membranes NECK: Supple CARDIOVASCULAR EXAMINATION: S1, S2, no murmurs RESPIRATORY EXAMINATION: Scattered rhonchi, tachypneic, no wheezing ABDOMINAL EXAMINATION: Soft, nontender, nondistended, positive bowel sounds EXTREMITIES: Range of motion intact SKIN: No rash NEUROLOGICAL EXAMINATION: Alert and oriented 3, no focal deficits PSYCHIATRIC EXAMINATION: Calm and cooperative A/P: 59-year-old male brought in by son for altered mental status. Found to be septic with a left upper lobe pneumonia on admission, requiring intubation within a few hours of hospitalization. 1. Acute respiratory failure 2/2 left upper lobe pneumonia Continue broad-spectrum antibiotics. Significantly high Procal at 11 & WBC in 30s. Covid 19 test and sputum culture pending. He remains intubated with pulmo nology following. Appreciate input. Continue isolation precautions. Testing for atypical pneumonia pending. 2. Multiorgan failure and Sepsis 2/2 above with bacteremia of gram-positive cocci in chains in 2/2 tubes Has transaminitis mildly improving, ROSITA on admission improving, and new-onset Afib. Continues to be intubated and tachypnic. Continue IV fluid and sepsis protocol. Lactate decreasing on repeat. Continue on vancomycin and Zosyn until sensitivities results. Repeat cultures ordered for a.m. Echo ordered. 3. NKHS with pseudohyponatremia Hyperglycemia in the 800s without any anion gap on admission, likely 2/2 acutely septic state and poorly-controlled sugars at baseline with a1c 10. Is acidotic with serum ketones. Is improving with intermittent doses of insulin with sugars down to 300s on recheck. Will start long-acting insulin tonight with every 4 hours coverage. Every 4 hours labs pending and potassium supplementation IV fluids. 4. Brief episode of A. fib, appears to be new onset Patient spontaneously converted to normal sinus rhythm status post IV Lopressor 5 mg 1. Likely 2/2 acutely ill state. Given he is a high risk patient, c ardiology consulted. Appreciate Dr. Robertson's input. Cardiac markers ordered for am & echo pending. 5. Hypophosphatemia Supplemented 6. Iron-deficiency & chronic anemia per anemia w/u. Will require supplementation when tolerating po. No overt bleed. 7. Acute metabolic encephalopthy reportedly confused on admission. Ammonia nml. Likely 2/2 acutely ill state and sepsis. Monitor mentation when extubated. DVT ppx: heparin sc GI ppx: IV protonix DISPO: continue monitoring in ICU with w/u pending. Intubated and pending Cardio assessment. VS,Fishbone, I+O VS, Fishbone, I+O Laboratory Tests 10/11/19 00:05 10/11/19 04:05 10/11/19 08:00 10/11/19 13:01 Vital Signs Date Time Temp Pulse Resp B/P (MAP) Pulse Ox O2 Delivery O2 Flow Rate FiO2 10/11/19 18:15 103 36 104/58 (73) 94 Ventilator 30 10/11/19 17:09 100.4 10/11/19 03:01 2.0 I&O- Last 24 Hours up to 6 AM 10/11/19 06:00 Intake Total 4930 ml Output Total 1050 ml Balance 3880 ml GME ATTESTATION GME ATTESTATION My faculty preceptor for this patient encounter was physically present during the encounter and was fully available. All aspects of the patient interview, examination, medical decision making process, and medical care plan development were reviewed and approved by the faculty preceptor. The faculty preceptor is aware and concurs with the plan as stated in the body of this note and will attest to such by his/her cosignature. LAURENCE SHERWOOD DO Oct 11, 2019 20:22 LOPEZ MCKENNA MD Oct 15, 2019 18:10
--- NOTE | 2019-10-11 20:22 | PHACANCOPD ---
PHARMACY VANCOMYCIN DOSING Pt Demographics Demographics Patient Age:59 , Weight:131.600 , Gender: male Adjusted Body Weight Date: 10/11/19, Adjusted Body Weight: Kg Events Past 24 Hours Events Past 24 Hours: YES: Fever, Elevation in WBC Vancomycin Vancomycin indication: Bacteremia Vancomycin Target Ranges: 15-20 mcg/ml Vancomycin Load Y/N: Yes Load Dose Date Time Vancomycin Load Dose: 2000mg Date: 10/11/19 Time:1600 Vancomycin Dose Date: 10/11/19. Current Vancomycin Dose: [ 1 gram every 8 hours ] Intermittent Dosing?: No Labs Labs Vital Signs Label Value Date Time Patient Temperature 100.4 degrees F 10/11/19 1709 Patient Temperature 100.8 degrees F 10/11/19 1615 Temperature Source Rectal 10/11/19 1615 Respiratory Rate 36 bpm 10/11/19 1545 Respiratory Rate 36 bpm 10/11/19 1615 Blood Pressure Assessment 100/61 (74) 10/11/19 1545 Blood Pressure Assessment 99/58 (72) 10/11/19 1600 Blood Pressure Assessment 103/57 (72) 10/11/19 1645 Item Value Date Time Oxygen Delivery Method Ventilator 10/11/19 1645 White Blood Count 32.3 10^3/uL *H 10/11/19 0005 White Blood Count 36.1 10^3/uL *H 10/11/19 0405 White Blood Count 30.7 10^3/uL *H 10/11/19 1301 Creatinine 1.26 MG/DL 10/11/19 0800 Creatinine 0.93 MG/DL 10/11/19 1301 Glomerular Filtration Rate > 60.0 10/11/19 1301 Glomerular Filtration Rate > 60.0 10/11/19 0800 Lactic Acid Level 2.5 MMOL/L *H 10/11/19 0750 Micro Microbiology 10/11/19 Respiratory Panel (PCR) - Final, Complete 10/11/19 Gram Stain - Final, Resulted 10/11/19 Sputum Culture, Resulted Pending 10/11/19 Respiratory Virus Panel (PCR) (KATE) - Final, Complete 10/11/19 Blood Culture - Preliminary, Resulted 10/11/19 Blood Culture - Preliminary, Resulted 10/11/19 Coronavirus COVID-19 PCR ([facility]), Received Pending Creatinine Clearance Date:10/11/19. Creatinine Clearance: [ 91 mL/min ]. Assessment and Plan Maintaining Current Dose?: Yes Reason for dose change: No Dose Change Pharmacist Note Pharmacist Note Date: 10/11/19. Pharmacist note: Patient is a 59-year-old male who was admitted with community acquired pneumonia and was ultimately intubated. He was placed on broad-spectrum antibiotic therapy consisting of Zosyn and vancomycin. He has not received vancomycin therapy at [facility] prior to this admission and has decent renal function. He was given a loading dose of 2 grams, with a subsequent maintenance dose of 1 gram every 8 hours. A trough was scheduled for 1400 tomorrow, with a goal trough between 15-20mcg/dL. We will continue to monitor and make adjustments as needed. KEMAL ELIAS PHARMACY Oct 11, 2019 20:22
[2019-10-11] MEDS ORDERED: LEVEMIR (INSULIN DETEMIR) 1 UNITS/0.01ML SC SCH (21:00)
[2019-10-12] VITALS (36 sets, daily range): BP systolic 94–134; BP diastolic 48–75
[2019-10-12] MEDS: KCL 20MEQ in NS 1000ML 1,000 ML IV SCH ×2 (02:00→08:57)
[2019-10-12] MEDS: HumaLOG INSULIN (NovoLOG) PER UNIT SC SCH ×6 (02:22→21:51)
[2019-10-12] MEDS: propofoL 1,000 MG in IV 1 EA IV SCH ×8 (02:30→23:59)
[2019-10-12] MEDS: ALBUTEROL 90 MCG/ACT 8GM HFA INHALER INH SCH ×6 (03:10→23:16)
[2019-10-12 04:58] LABS: HEMATOCRIT 36.9 % (42.0-52.0); HEMOGLOBIN 11.8 g/dl (13.5-17.5); MEAN CORPUSCULAR HEMOGLOBIN 25.8 pg (27.0-33.0); MEAN CORPUSCULAR VOLUME 80.7 fl (80.0-96.0); PLATELET COUNT, AUTOMATED 262 10^3/uL (150-450); RED BLOOD COUNT 4.57 10^6/uL (4.30-6.10); WHITE BLOOD COUNT 19.6 10^3/uL (4.0-10.0)
[2019-10-12] MEDS: PIPERACILLIN/TAZOBACTAM SOD 4.5 GM in D5W MINI-BAG PLUS 100 ML IV SCH ×3 (05:22→17:56)
[2019-10-12] MEDS: HEPARIN SOD (PORCINE) 5000UNITS/ML VIAL (J1644 PER 1000UNITS) SC SCH ×3 (05:22→21:50)
[2019-10-12 05:32] LABS: ALBUMIN 1.4 GM/DL (3.2-5.2); ALT/SGPT 79 U/L (12-78); BILIRUBIN,TOTAL 0.6 MG/DL (0.2-1.0); BLOOD UREA NITROGEN 25 MG/DL (7-18); CALCIUM LEVEL 7.6 MG/DL (8.5-10.1); CARBON DIOXIDE LEVEL 26 MEQ/L (21-32); CHLORIDE LEVEL 114 MEQ/L (98-107); CK-MB VALUE MASS 2.4 NG/ML (<3.6); CPK CREATINE PHOSPHOKINASE 178 U/L (39-308); CREATININE FOR GFR 0.92 MG/DL (0.70-1.30); GLOMERULAR FILTRATION RATE > 60.0 (>56); GLUCOSE, FASTING 278 MG/DL (70-100); MB/CK RELATIVE INDEX 1.35 (< OR =4); POTASSIUM SERUM 4.7 MEQ/L (3.5-5.1); SODIUM LEVEL 143 MEQ/L (136-145); TOTAL PROTEIN 6.3 GM/DL (6.4-8.2); TROPONIN I < 0.02 NG/ML (< 0.10)
[2019-10-12 05:36] LABS: LYMPHOCYTES 11 % (16-44); METAMYELOCYTES 1 % (0-0); MONOCYTES 2 % (0-5); NEUTROPHILS 84 % (28-66)
[2019-10-12 05:37] LABS: PLATELET ESTIMATE NORMAL (NORMAL); TOXIC GRANULATION 1+
[2019-10-12 05:38] LABS: ANISOCYTOSIS 2+
[2019-10-12] MEDS: VANCOMYCIN HCL 1,000 MG, VIAL MATE ADAPTER 1 EACH in D5W 250 ML IV SCH ×2 (07:44→15:19)
--- NOTE | 2019-10-12 08:26 | ECGEPIP ---
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
[2019-10-12] MEDS: PANTOPRAZOLE 40MG VIAL (C9113 PER 1) IV SCH (08:41)
--- NOTE | 2019-10-12 13:59 | CCN ---
DATE: 10/12/2019 NOTE: Mr. Celestin remains critically ill with acute hypoxic respiratory failure secondary to a left upper lobe pneumonia. Overnight, he remained tachycardiac and his rhythm would change from atrial fibrillation to atrial flutter. He received a dose of metoprolol with a decrease in his heart rate, which at that point, I believe, appeared to be still atrial fibrillation / flutter. He spontaneously converted to sinus rhythm earlier this morning. No blood pressure instability. He continued to have fevers with a maximum temperature (t-max) of 100.8. He continues with a high minute ventilation. He also had a positive blood culture for gram-positive cocci in chains. On his sedation holiday, he was making purposeful movements. His COVD19 came back negative this morning. PHYSICAL EXAMINATION: General: Mr. Celestin is lying in bed in no acute distress. He occasionally uses abdominal muscles on exhalation. Vital signs: Temperature 100.6, T-max of 100.8, pulse 80s to 90s and regular, respiratory rate 30s to 40, blood pressure 134/59 with a MAP 84, SPO2 96-98% on FIO2 of 0.3. HEENT: Anicteric, pupils 3 mm and sluggish. Nares: Patent bilaterally. Moist mucosa. Oropharynx: Endotracheal and orogastric tube in place. ET tube is at 23 in the inner lip and 24 on the outer lip. Neck: Supple, without thyromegaly or masses, trachea is midline. Lymph: Without cervical, supraclavicular lymphadenopathy. Lungs: Symmetric excursion, fair air entry, no wheeze, rhonchi or crackle on tidal excursion. Normal tone, mildly prolonged expiratory phase. Occasional abdominal accessory muscle usage. No retractions. Abdomen: Hypoactive bowel sounds, mild distension, tympanic. Extremities: Warm, well-perfused without clubbing or cyanosis. There is trace to 1+ pedal and hand edema. LABORATORY DATA: CBC from this morning showed a hemoglobin 11.8, hematocrit 36.9, platelet count 262,000, blood cell count 19,600 with a differential of 84% neutrophils, 2% bands, 11% lymphocytes. Chemistry shows sodium 143, potassium 4.7, chloride 114, bicarbonate 26, anion gap 3, BUN 825, creatinine 0.92, glucose 278, calcium 7.6, total bilirubin 0.6, AST 100, ALT 79, alkaline phosphatase 133, CK 172, troponin-I less than 0.02, total protein 6.3, albumin 1.4. Gram stain had shown many WBCs and few gram-positive cocci, COVID-19 PCR negative. Blood culture shows gram-positive cocci in chains times two. Yesterday's input and output showed 8485 in and 4175 out making him positive 4310. Weight 131.6 kg. MRSA PCR negative. Mechanical ventilation is assist PRVC with a tidal volume of 450, rate 18, PEEP 5, FiO2 of 0.3. IMPRESSION 1. Acute hypoxemic respiratory failure secondary to left upper lobe pneumonia. Most likely this is community acquired. Given the positive blood cultures, most suspicious for pneumococcus. He is COVID-19 negative. 2. Left upper lobe pneumonia, community acquired. 3. Diabetes mellitus. 4. Gastroesophageal reflux disease (GERD). 5. Infectious disease. On Zosyn and vancomycin. 6. Gastrointestinal prophylaxis with subcutaneum heparin q.12 h. 7. Stress ulcer prophylaxis with proton pump inhibitor. 8. Nutrition. Currently nothing by mouth. RECOMMENDATIONS 1. Continue with a lung protective strategy. 2. He remains with an elevated minute ventilation likely secondary to ongoing sepsis that is slowly resolving. Because of that is, he is not weanable at this time. 3. Recommend trying to tighten his glucose control either by increasing long-acting agent or using an insulin drip. I anticipate that his glucose will improve as his sepsis resolves. 4. Would de-escalate antibiotics. As MRSA PCR is negative, would discontinue the vancomycin. Hopefully, we will be able to further simplify once the culture results are available. 5. His chloride and sodium are increasing. I recommend changing his IV fluids to half-normal saline with 20 of potassium and also decreasing his rate to perhaps 75 mL an hour. 6. Given his BMI, I would recommend increasing his subcutaneous heparin to every 8 hours. I would also add mechanical DVT prophylaxis. 7. If he is not weanable by tomorrow (which I doubt he will be), we will start tube feeds at that time. It can be anticipated that his insulin requirements will increase when this occurs. 8 His monitor was outside the room making it difficult to monitor changes, but he appeared to have auto PEEP. Manipulations to increase the PEEP to offset the auto PEEP made no difference (he is also flow triggered). There was a slight decrease with shortening the inspiratory time. Critical care 45 minutes, not including procedure time. MTDD
[2019-10-12] MEDS ORDERED: NS 0.45% 1,000 ML IV SCH (14:45)
[2019-10-12] MEDS ORDERED: KCL 20MEQ IN 0.45NS 1000ML 1,000 ML IV SCH (15:03)
--- NOTE | 2019-10-12 15:03 | IPNPDOC ---
Text Note Date of Service The patient was seen on 10/12/19. NOTE S: Pt examined at bedside. Intubated with FiO2 at 30 this am. Decreasing leukocytosis and maintained in NSR in 90s overnight. Still spiking fevers of 100.8. Blood sugars are better controlled in 200s today. PE: Not done due to limited PPE in COVID-19 pandemic. Pt seen by Attending - will add Addendum. A/P: 59-year-old male brought in by son for altered mental status. Found to be septic with a left upper lobe pneumonia on admission, requiring intubation within a few hours of hospitalization. 1. Acute hypoxic respiratory failure 2/2 left upper lobe pneumonia Is improving with leukocytosis downtrending, but continues being febrile. Covid 19 test negative, and sputum culture pending. He remains intubated with pulmonology following. Appreciate input. Continue isolation precautions. Testing for atypical pneumonia pending. Continue broad-spectrum antibiotics on Vanco and Zosyn, especially given bacteremia with initial 2 sets of blood cultures positive for gram-positive cocci in clusters with final cultures pending-will de-escalate pending these results. Procal at 11. Repeat blood cultures this a.m. also pending. Trend inflammatory markers and monitor. Per Pulmonary, possible tube feeds starting tomorrow. 2. Multiorgan failure and Sepsis 2/2 above #1 [pneumonia with bacteremia of gram-positive cocci in chains in 2/2 tubes] Continues to be spiking fevers with leukocytosis and tachypneic on ventilator. Transaminitis is slowly improving with antibiotics and supportive care and IV fluids, and he has not had any further episodes of A. fib. Renal function is also back to his baseline. Continue on vancomycin and Zosyn until sensitivities results. Echo is pending. 3. NKHS with pseudohyponatremia Resolved with intermittent doses of insulin. Sugars down to 200-300. Initially came in in the 800s without any anion gap on admission, acidotic and with serum ketones. Likely 2/2 acutely septic state and poorly-controlled sugars at baseline with a1c 10. Will titrate up long-acting insulin with every 4 hours coverage until better controlled. 4. Brief episode of A. fib 10/11/19, appears to be new onset Patient spontaneously converted to normal sinus rhythm with episodes of sinus t achycardia in low 100s status post IV Lopressor 5 mg 1. Likely 2/2 acutely ill state. Given he is a high risk patient, cardiology consulted. Appreciate Dr. Robertson's input. Cardiac markers negative and echo pending. 5. Iron-deficiency & chronic anemia anemia w/u noted. Will require supplementation when tolerating po. No overt bleed. H&H stable 7. Acute metabolic encephalopathy reportedly confused on admission. Ammonia nml. Likely 2/2 acutely ill state and sepsis. Monitor mentation when extubated. DVT ppx: heparin sc GI ppx: IV protonix DISPO: continue care in ICU. Pending clinical improvement. VS,Fishbone, I+O VS, Fishbone, I+O Laboratory Tests 10/12/19 04:45 Vital Signs Date Time Temp Pulse Resp B/P (MAP) Pulse Ox O2 Delivery O2 Flow Rate FiO2 10/12/19 09:00 93 36 134/59 (84) 96 Ventilator 30 10/12/19 08:43 100.6 10/11/19 03:01 2.0 I&O- Last 24 Hours up to 6 AM 10/12/19 06:00 Intake Total 3555 ml Output Total 3635 ml Balance -80 ml GME ATTESTATION GME ATTESTATION My faculty preceptor for this patient encounter was physically present during the encounter and was fully available. All aspects of the patient interview, examination, medical decision making process, and medical care plan development were reviewed and approved by the faculty preceptor. The faculty preceptor is aware and concurs with the plan as stated in the body of this note and will attest to such by his/her cosignature. ATTENDING NOTE I, Debbie Cooper, have independently examined this patient and performed my own physical exam, as well as reviewed the documentation and edited where necessary. I have discussed in detail with the resident / student the findings and plan of treatment as documented by the resident / student and edited their note. I agree with their findings and treatment plan and have edited their documentation. I will continue to follow the patient during this hospital stay. Physical: General: Lying in bed, Intubated + Sedated HEENT: NC, AT Lungs: Air entry appears fair bilaterally, no wheezing / rhonchi / rales Heart: +S1S2 Abdomen: Soft, NT, ND Extremities: 1+ pitting edema bilaterally, No calf tenderness LAURENCE SHERWOOD DO Oct 12, 2019 15:03 DEBBIE COOPER MD Oct 12, 2019 17:22
[2019-10-12] MEDS ORDERED: VANCOMYCIN HCL 1,000 MG, VIAL MATE ADAPTER 1 EACH in D5W 250 ML IV ONE (16:00)
[2019-10-12 17:34] LABS: HEMATOCRIT 33.1 % (42.0-52.0); HEMOGLOBIN 10.5 g/dl (13.5-17.5); MEAN CORPUSCULAR HEMOGLOBIN 25.8 pg (27.0-33.0); MEAN CORPUSCULAR HGB CONC 31.7 g/dl (32.0-36.5); MEAN CORPUSCULAR VOLUME 81.3 fl (80.0-96.0); PLATELET COUNT, AUTOMATED 211 10^3/uL (150-450); RED BLOOD COUNT 4.07 10^6/uL (4.30-6.10); WHITE BLOOD COUNT 14.5 10^3/uL (4.0-10.0)
[2019-10-12 17:55] LABS: ALBUMIN 1.2 GM/DL (3.2-5.2); ALT/SGPT 67 U/L (12-78); BILIRUBIN,TOTAL 0.7 MG/DL (0.2-1.0); BLOOD UREA NITROGEN 24 MG/DL (7-18); CALCIUM LEVEL 7.5 MG/DL (8.5-10.1); CARBON DIOXIDE LEVEL 24 MEQ/L (21-32); CHLORIDE LEVEL 116 MEQ/L (98-107); CREATININE FOR GFR 0.88 MG/DL (0.70-1.30); GLOMERULAR FILTRATION RATE > 60.0 (>56); GLUCOSE, FASTING 245 MG/DL (70-100); MAGNESIUM LEVEL 2.6 MG/DL (1.8-2.4); POTASSIUM SERUM 4.2 MEQ/L (3.5-5.1); SODIUM LEVEL 144 MEQ/L (136-145); TOTAL PROTEIN 5.7 GM/DL (6.4-8.2)
[2019-10-12 18:02] LABS: ANISOCYTOSIS 1+; LYMPHOCYTES 8 % (16-44); METAMYELOCYTES 2 % (0-0); MONOCYTES 2 % (0-5); MYELOCYTES 1 % (0-0); NEUTROPHILS 75 % (28-66)
[2019-10-12 18:03] LABS: HYPOCHROMASIA 1+; PLATELET ESTIMATE NORMAL (NORMAL); TEAR DROP CELLS 2+
--- NOTE | 2019-10-12 18:55 | ECHO ---
DATE OF PROCEDURE: 10/12/2019 REFERRING PHYSICIAN: Dr. Germania Dalal INDICATION: Sepsis. Height 180 cm, weight 135 kg. DIMENSIONS: IVS: 1.2 LV: 5.1 LVPW: 1.2 LA: 4.6 Aorta: 3.0 IVC: 2.3 Mitral E wave velocity: 81 A wave: 42 E prime septal: 6.6 E prime lateral: 14.2 FINDINGS: The study is of rather limited technical quality corresponding to patient's body habitus, and the fact that he is intubated. The patient is in sinus rhythm. Left ventricle is of normal size. There is mild left ventricular hypertrophy. Overall normal or near normal LV systolic function based on limited views. Right ventricle was relatively poorly seen but appears grossly normal size. There is moderate left atrial enlargement. Right atrium was poorly visualized but appears at least mildly enlarged. Aortic valve is minimally sclerotic but based on very limited views, I do not appreciate any significant functional abnormality. Mitral valve was also poorly seen but grossly appears normal. The same applies for tricuspid and pulmonic valves. No pericardial effusion is noted. Inferior vena cava is dilated and has minimal collapse with respiration, indicative of central venous pressure and consistent with positive pressure ventilation. Aortic valve is free of significant stenosis or insufficiency. Same applies for mitral valve. There is trace tricuspid insufficiency. Calculated pulmonary artery pressure was in 30s corresponding to mild pulmonary hypertension. But quality of TR jet was limited, and this should not be considered overly accurate. Pulmonic valve is functionally competent. Mitral inflow pattern and tissue Doppler imaging of mitral annulus revealed probably grade 2 diastolic dysfunction. CONCLUSIONS: 1. Study is of very limited technical quality. 2. Normal left ventricular (LV) size with mild left ventricular hypertrophy (LVH) and preserved LV systolic function. Likely grade 2 diastolic dysfunction. 3. No hemodynamically significant valvular disease. 4. Elevated central venous pressure and at least mild pulmonary hypertension. COMMENT: Subacute bacterial endocarditis (SBE) prophylaxis is not recommended. Overall study most consistent with hypertensive heart disease.
[2019-10-12] MEDS ORDERED: LEVEMIR (INSULIN DETEMIR) 1 UNITS/0.01ML SC SCH (21:00)
[2019-10-13] VITALS (24 sets, daily range): BP systolic 89–128; BP diastolic 50–68; O2SAT 96–100
[2019-10-13] MEDS: HumaLOG INSULIN (NovoLOG) PER UNIT SC SCH ×5 (02:13→23:43)
[2019-10-13] MEDS: propofoL 1,000 MG in IV 1 EA IV SCH ×10 (02:55→21:50)
[2019-10-13] MEDS: ALBUTEROL 90 MCG/ACT 8GM HFA INHALER INH SCH ×6 (03:34→20:01)
[2019-10-13 05:15] LABS: HEMATOCRIT 33.4 % (42.0-52.0); HEMOGLOBIN 10.9 g/dl (13.5-17.5); MEAN CORPUSCULAR HEMOGLOBIN 26.4 pg (27.0-33.0); MEAN CORPUSCULAR HGB CONC 32.6 g/dl (32.0-36.5); MEAN CORPUSCULAR VOLUME 80.9 fl (80.0-96.0); PLATELET COUNT, AUTOMATED 229 10^3/uL (150-450); RED BLOOD COUNT 4.13 10^6/uL (4.30-6.10); WHITE BLOOD COUNT 14.4 10^3/uL (4.0-10.0)
[2019-10-13 05:28] LABS: ANISOCYTOSIS 1+; EOSINOPHILS 4 % (0-3); LYMPHOCYTES 14 % (16-44); METAMYELOCYTES 1 % (0-0); MONOCYTES 8 % (0-5); MYELOCYTES 2 % (0-0); NEUTROPHILS 66 % (28-66); PLATELET ESTIMATE NORMAL (NORMAL); POLYCHROMASIA 1+
[2019-10-13 05:30] LABS: TOXIC GRANULATION 1+; TOXIC VACUOLATION 1+
[2019-10-13 05:45] LABS: ALBUMIN 1.2 GM/DL (3.2-5.2); ALT/SGPT 70 U/L (12-78); BILIRUBIN,TOTAL 0.8 MG/DL (0.2-1.0); BLOOD UREA NITROGEN 22 MG/DL (7-18); CALCIUM LEVEL 6.8 MG/DL (8.5-10.1); CARBON DIOXIDE LEVEL 24 MEQ/L (21-32); CHLORIDE LEVEL 113 MEQ/L (98-107); CREATININE FOR GFR 0.83 MG/DL (0.70-1.30); GLOMERULAR FILTRATION RATE > 60.0 (>56); GLUCOSE, FASTING 314 MG/DL (70-100); MAGNESIUM LEVEL 2.6 MG/DL (1.8-2.4); PHOSPHORUS LEVEL 2.2 MG/DL (2.5-4.9); POTASSIUM SERUM 4.4 MEQ/L (3.5-5.1); SODIUM LEVEL 144 MEQ/L (136-145); TOTAL PROTEIN 5.5 GM/DL (6.4-8.2)
[2019-10-13] MEDS: HEPARIN SOD (PORCINE) 5000UNITS/ML VIAL (J1644 PER 1000UNITS) SC SCH ×3 (05:51→21:50)
[2019-10-13] MEDS: PIPERACILLIN/TAZOBACTAM SOD 4.5 GM in D5W MINI-BAG PLUS 100 ML IV SCH ×4 (05:51→11:53)
--- NOTE | 2019-10-13 07:57 | REP ---
Portable chest x-ray: Single view. History: Intubated patient. Comparison study: October 11, 2019. Findings: Extensive consolidation persists in the left upper lobe with a few air bronchograms essentially unchanged from yesterday's radiograph. Right lung remains clear. NG tube enters left upper quadrant. Endotracheal tube is seen in good position at the level of the proximal clavicles. Electronically Signed by Anil Tatum MD 10/13/2019 07:49 A
[2019-10-13] MEDS ORDERED: FUROSEMIDE 20MG/2ML VIAL (J1940) IV ONE (08:00)
[2019-10-13] MEDS: PANTOPRAZOLE 40MG VIAL (C9113 PER 1) IV SCH (08:53)
--- NOTE | 2019-10-13 10:10 | IPNPDOC ---
Text Note Date of Service The patient was seen on 10/13/19. NOTE S: Pt examined at bedside. COVID testing was negative. Afebrile and maintaining in NSR with HR 80s-90s. No further Afib/flutter episodes. Intubated with FiO2 at 30 & tachypnea improving. Decreasing leukocytosis and better controlled blood sugars in 200s. PE: General exam: resting comfortably intubated & sedated HEENT: NCAT, injected conjunctiva Cardiac: RRR, normal S1 & S2 Respiratory: on vent, good air exchange, course rhonchi dispersed, otherwise clear throughout Abdomen: soft, NT, ND, OG tube in place Extremity: 2+ radial pulses, 1+ b/l LE edema Neuro: noncommunicative on sedation & intubation A/P: 59-year-old male brought in by son for altered mental status. Found to be septic with a left upper lobe pneumonia on admission, requiring intubation within a few hours of hospitalization. 1. Acute hypoxic respiratory failure 2/2 left upper lobe pneumonia - Remains intubated on FiO2 of 30; Procal 11. - Leukocytosis & CRP improving and pt has been afebrile for 24hrs for the first time since admission - Negative MRSA, and initial blood cultures positive in both tubes for gram- positive cocci in chains - Repeat blood cultures negative at 24 hours. Repeat CXR unchanged - Suspicion for strep pneumo. Vanc discontinued, continue Zosyn until sensitivities results - Pulm on board, appreciate input. Per Pulm, possibly start tube feeds today 2. Multiorgan failure and Sepsis 2/2 above #1 [pneumonia with bacteremia of gram-positive cocci in chains in 2/2 tubes] - no longer spiking fevers - improving tachypnea, still on vent - gradually improving transaminits and ROSITA from admission resolved s/p abx and IVF - HR gradually improving down to NSR and no further episodes of Afib/flutter [1 episode on 10/11/19] - Echo: Normal LVEF, grade 2 diastolic dysfunction, no significant valvular disease, elevated CVP with mild pulmonary hypertension - Continue on Zosyn until sensitivities results 3. NKHHS with pseudohyponatremia - resolved with intermittent doses of insulin. Sugars down to 200-300 - Initially came in in the 800s without any anion gap on admission, acidotic and with serum ketones - Likely 2/2 acutely septic state and poorly-controlled sugars at baseline with a1c 10 - Still hyperglycemic. Will titrate up long-acting insulin and continue ISS coverage 4. Brief episode of A. fib 10/11/19, appears to be new onset - Patient spontaneously converted to normal sinus rhythm with episodes of sinus tachycardia in low 100s status post IV Lopressor 5 mg 1 - Likely 2/2 acutely ill state. Cardiac markers negative and echo unremarkable - has since remained in NSR in 80-90s and no further Afib episodes. Monitor 5. Grade 2 diastolic dysfxn - noted on echo - pt mildyly edematous in LE, will hold IVF and diurese 20mg IV lasix x1 and monitor borderline soft bp & vol status 6. Iron-deficiency & chronic anemia - anemia w/u noted. Will require supplementation when tolerating po. No overt bleed. H&H stable 7. Acute metabolic encephalopathy - reportedly confused on admission. Ammonia nml. Likely 2/2 acutely ill state and sepsis. Monitor mentation when extubated. DVT ppx: heparin sc & mechanical GI ppx: IV protonix DISPO: continue care in ICU. Pending clinical improvement. VS,Fishbone, I+O VS, Fishbone, I+O Laboratory Tests 10/12/19 17:19 10/13/19 05:04 Vital Signs Date Time Temp Pulse Resp B/P (MAP) Pulse Ox O2 Delivery O2 Flow Rate FiO2 10/13/19 08:00 99.1 83 33 92/63 (73) 98 10/13/19 08:00 Ventilator 10/13/19 08:00 30 10/11/19 03:01 2.0 I&O- Last 24 Hours up to 6 AM 10/13/19 06:00 Intake Total 2434 ml Output Total 2245 ml Balance 189 ml GME ATTESTATION GME ATTESTATION My faculty preceptor for this patient encounter was physically present during the encounter and was fully available. All aspects of the patient interview, examination, medical decision making process, and medical care plan development were reviewed and approved by the faculty preceptor. The faculty preceptor is aware and concurs with the plan as stated in the body of this note and will attest to such by his/her cosignature. ATTENDING NOTE I, Debbie Cooper, have independently examined this patient and performed my own physical exam, as well as reviewed the documentation and edited where necessary. I have discussed in detail with the resident / student the findings and plan of treatment as documented by the resident / student and edited their note. I agree with their findings and treatment plan and have edited their documentation. I will continue to follow the patient during this hospital stay. LAURENCE SHERWOOD DO Oct 13, 2019 10:10 DEBBIE COOPER MD Oct 13, 2019 15:15
[2019-10-13] MEDS ORDERED: PROPOFOL 1,000 MG/100 ML VIAL As Ordered ONE (14:03)
[2019-10-13 14:07] LABS: BODY FLUID CULTURE Not indicated. (.); LEGIONELLA ANTIGEN URINE Negative (Negative); ORGANISM ID Not indicated. (.); SPECIMEN SOURCE Urine (.)
[2019-10-13] MEDS: cefTRIAXone SOD 2 GM in D5W MINI-BAG PLUS 50 ML IV SCH (14:58)
[2019-10-13] MEDS: ACETAMINOPHEN *IV* 1,000 MG in IV 1 EA IV PRN (15:39)
--- NOTE | 2019-10-13 17:49 | CCN ---
DATE: 10/13/2019 NOTE: Mr. Celestin remains critically ill with acute hypoxic respiratory failure secondary to left upper lobe pneumonia leading to mechanical ventilation. No hemodynamic events overnight. His maximum temperature (T-max) overnight was 99.1. On his sedation holiday, he was purposeful. Unfortunately, his minute ventilation remains 16-17 precluding consideration of extubation. OBJECTIVE: PHYSICAL EXAMINATION: GENERAL: Mr. Celestin is lying in bed, synchronous but remains tachypneic. VITAL SIGNS: Temperature 99.1 which is his maximum temperature (T-max), pulse 80s, respiratory rate 36, blood pressure 92/63 with a mean arterial pressure (MAP) of 73. SPO2 98% on FIO2 of 0.3. HEENT: Anicteric, pupils are 3 mm and reactive. Nares: Patent bilaterally. Moist mucosa. Oropharynx: Endotracheal (ET) tube and orogastric (OG) tube in place. NECK: Supple, without thyromegaly or masses. Trachea is midline. No apparent jugular venous distention (JVD). LYMPHATICS: Without cervical or supraclavicular lymphadenopathy. LUNGS: Symmetric excursion, good air entry, bronchial breath sounds in the left upper lobe region. Otherwise, no wheeze, rhonchi or significant crackle. Normal I:E. No accessory muscle usage or retractions. CARDIOVASCULAR: Regular rate and rhythm with a normal S1, S2, occasional premature atrial contractions (PACs). No murmur, rub or gallop. ABDOMEN: Positive bowel sounds, less distension than yesterday, soft. No hepatosplenomegaly or masses appreciated. EXTREMITIES: Without clubbing or cyanosis. There is increased edema, particularly of the right upper extremity though it is not tense. LABORATORY DATA: CBC from this morning showed a hemoglobin of 10.9, hematocrit of 33.4, platelet count of 129,000, white blood cell count 14,400 with a differential of 66% neutrophils, 5% bands, 14% lymphocytes, and 8% monocytes. Chemistry showed a sodium 144, potassium 4.4, chloride 113, bicarbonate 24, anion gap 7, BUN 22, creatinine 0.8, glucose 314, calcium 6.8, phosphorus 2.2, magnesium 2.6, total bilirubin 0.8, AST 87, ALT 70, alkaline phosphatase 133, CRP 13.3 (down from 30), total protein 5.5, albumin 1.2. I have reviewed his chest x-ray as well as the report from earlier today. That x-ray showed the right lung is clear. There is extensive infiltrate in the left upper lobe with air bronchograms. It is not significantly changed compared to chest x-ray from 10/11/2019 following intubation. ET tube is in good position. Intake and output from yesterday was 1782 in and 2265 out making him negative 483. Weight 135.4 kg. He remains without a bowel movement. Blood cultures times two were positive for Streptococcus pneumoniae as was the sputum culture. IMPRESSION: 1. Acute hypoxemic respiratory failure secondary to left upper lobe Streptococcus pneumonia. 2. Sepsis secondary to Streptococcus pneumonia, resolving. 3. Left upper lobe Streptococcus pneumonia. 4. Diabetes mellitus. 5. Gastroesophageal reflux disease (GERD). 6. Infectious disease, on Zosyn. 7. Gastrointestinal (GI) prophylaxis with subcutaneous heparin every eight hours. 8. Stress ulcer prophylaxis with a proton pump inhibitor number. 9. Nutrition. Currently nothing by mouth. RECOMMENDATIONS: 1. As noted above, his minute ventilation remains high secondary to his sepsis and unable to consider weaning at this time. Hopefully that will continue to resolve and we will be able to wean him in the near future. 2. Recommend de-escalation of antibiotics as sensitivities are now available. 3. Agree with gentle diuresis though he may not be ready for that at this time. 4. We will start Glucerna. 5. Would continue on subcutaneous insulin. Though with starting the tube feeds, he may require an insulin drip. He remains critically ill. Critical care time 35 minutes not including procedure time. [facility]ITAL[facility]
[2019-10-13] MEDS ORDERED: METOPROLOL 5 MG/5 ML VIAL As Ordered ONE (18:40)
[2019-10-13] MEDS ORDERED: METOPROLOL 5 MG/5 ML VIAL IV STA (18:40)
[2019-10-13] MEDS: METOPROLOL TART 12.5 MG PER 1/2 TAB PO SCH ×2 (19:32→23:42)
[2019-10-13 19:57] LABS: BLOOD UREA NITROGEN 23 MG/DL (7-18); CALCIUM LEVEL 6.9 MG/DL (8.5-10.1); CARBON DIOXIDE LEVEL 24 MEQ/L (21-32); CHLORIDE LEVEL 114 MEQ/L (98-107); CREATININE FOR GFR 0.89 MG/DL (0.70-1.30); GLOMERULAR FILTRATION RATE > 60.0 (>56); GLUCOSE, FASTING 240 MG/DL (70-100); MAGNESIUM LEVEL 2.5 MG/DL (1.8-2.4); POTASSIUM SERUM 4.1 MEQ/L (3.5-5.1); SODIUM LEVEL 145 MEQ/L (136-145)
[2019-10-13] MEDS ORDERED: LEVEMIR (INSULIN DETEMIR) 1 UNITS/0.01ML SC SCH (21:00)
[2019-10-14] VITALS (13 sets, daily range): BP systolic 92–129; BP diastolic 51–82; O2SAT 91–97
[2019-10-14] MEDS: propofoL 1,000 MG in IV 1 EA IV SCH ×12 (00:33→22:23)
[2019-10-14] MEDS: ALBUTEROL 90 MCG/ACT 8GM HFA INHALER INH SCH ×6 (01:28→20:23)
[2019-10-14] MEDS: MIDAZOLAM INJ 2MG/2ML VIAL (J2250 PER 1MG) IV PRN ×2 (04:44→05:28)
[2019-10-14] MEDS: HEPARIN SOD (PORCINE) 5000UNITS/ML VIAL (J1644 PER 1000UNITS) SC SCH ×3 (05:27→20:54)
[2019-10-14] MEDS: METOPROLOL TART 12.5 MG PER 1/2 TAB PO SCH ×3 (05:28→18:01)
[2019-10-14] MEDS: HumaLOG INSULIN (NovoLOG) PER UNIT SC SCH ×3 (05:29→18:01)
[2019-10-14 06:25] LABS: HEMATOCRIT 33.1 % (42.0-52.0); MEAN CORPUSCULAR HEMOGLOBIN 26.4 pg (27.0-33.0); MEAN CORPUSCULAR HGB CONC 33.2 g/dl (32.0-36.5); MEAN CORPUSCULAR VOLUME 79.4 fl (80.0-96.0); PLATELET COUNT, AUTOMATED 256 10^3/uL (150-450); RED BLOOD COUNT 4.17 10^6/uL (4.30-6.10); WHITE BLOOD COUNT 10.3 10^3/uL (4.0-10.0)
[2019-10-14 06:46] LABS: BLOOD UREA NITROGEN 22 MG/DL (7-18); CARBON DIOXIDE LEVEL 25 MEQ/L (21-32); CHLORIDE LEVEL 113 MEQ/L (98-107); GLOMERULAR FILTRATION RATE > 60.0 (>56); GLUCOSE, FASTING 264 MG/DL (70-100); MAGNESIUM LEVEL 2.6 MG/DL (1.8-2.4); PHOSPHORUS LEVEL 2.6 MG/DL (2.5-4.9); POTASSIUM SERUM 4.2 MEQ/L (3.5-5.1); SODIUM LEVEL 145 MEQ/L (136-145)
--- NOTE | 2019-10-14 08:12 | REP ---
PORTABLE CHEST X-RAY: SINGLE VIEW. HISTORY: Intubated patient. COMPARISON CHEST X-RAY: October 13, 2019 and October 11, 2019. FINDINGS: Endotracheal tube is seen in good position. NG tube enters the left upper quadrant. There is improved aeration in the left upper lobe infiltrate. No new infiltrate is appreciated. Overall, the lungs are exposed at a relatively low level of inspiration. IMPRESSION: Improved aeration left upper lobe infiltrate. Electronically Signed by Anil Tatum MD 10/14/2019 10:04 A
[2019-10-14] MEDS: PANTOPRAZOLE 40MG VIAL (C9113 PER 1) IV SCH (09:02)
[2019-10-14] MEDS ORDERED: FUROSEMIDE 40MG/4ML VIAL (J1940) IV ONE (09:45)
[2019-10-14] MEDS: CHLORHEXIDINE GLUCONATE 0.12 % 15ML UDC (PERIDEX ORAL RINSE) MT SCH ×2 (09:53→20:53)
--- NOTE | 2019-10-14 10:37 | IPNPDOC ---
Text Note Date of Service The patient was seen on 10/14/19. NOTE S: Pt examined at bedside. Reamins intubated and spiking fevers 100.6 yesterday. Went into Afib RVR again last evening, HR in 160s. Responded well to Lopressor 5mg x1 and started on po - maintaining in NSR since. Also started tube feeds yesterday. PE: General exam: resting comfortably intubated & sedated HEENT: NCAT, injected conjunctiva Cardiac: RRR, normal S1 & S2 Respiratory: on vent, good air exchange, course rhonchi dispersed, otherwise clear throughout Abdomen: soft, NT, ND, OG tube in place : live in place with clear urine Extremity: 2+ radial pulses, 1+ b/l LE edema & edematous hands b/l Neuro: noncommunicative on sedation & intubation A/P: 59-year-old male brought in by son for altered mental status. Found to be septic with a left upper lobe pneumonia on admission, requiring intubation within a few hours of hospitalization. 1. Acute hypoxic respiratory failure / ventilator dependent respiratory failure 2/2 severe sepsis 2/2 left upper lobe Strep pneumonia - Remains intubated on FiO2 of 30; Procal 11. - blood and sputum cultures +Strep pneumo - repeat CXR reveals improving infiltrate. Leukocytosis downtrending - Pulmonary on board, appreciate input. Started tube feeds 10/12 2. Multiorgan failure and Severe sepsis 2/2 Strep Pneumo bacteremia 2/2 strep pneumonia PNA - still having fever of 100.6 and borderline leukocytosis - improving tachypnea, still on vent - gradually improving transaminits and ROSITA from admission resolved s/p abx and IVF - intermittent episodes of new AFib/flutter in RVR [10/11/19 & 10/12] - Echo: Normal LVEF, grade 2 diastolic dysfunction, no significant valvular disease, elevated CVP with mild pulmonary hypertension - c/w Ceftriaxone; s/p Vanco and Zosyn 3. Intermittent bouts of A. fib in RVR 10/11/19 and 10/13/19 - No prior documented AFib hx. Appears to be new onset - S/p IV and po Lopressor, tolerates well - Likely 2/2 acutely ill state. Cardiac markers negative and echo unremarkable - started on po Metoprolol tartrate 12.5mg q6h with hold parameters - otherwise remaining in NSR 4. NKHHS with pseudohyponatremia - resolved with intermittent doses of insulin. Sugars down to 200-300 - Initially came in in the 800s without any anion gap on admission, acidotic and with serum ketones - Likely 2/2 acutely septic state and poorly-controlled sugars at baseline with a1c 10 - Still hyperglycemic. Will titrate up long-acting insulin and continue ISS coverage 5. Decompensated heart failure with preserved EF - s/p 8L infused on initial septic state - Grade 2 diastolic dysfxn noted on echo - pt edematous. Avoid IVF and diurese IV lasix intermittently as tolerated 6. Iron-deficiency & chronic anemia - anemia w/u noted. Will require supplementation when tolerating po. No overt bleed. H&H stable 7. Acute metabolic encephalopathy - reportedly confused on admission. Ammonia nml. Likely 2/2 acutely ill state and sepsis. Monitor mentation when extubated. DVT ppx: heparin sc & mechanical GI ppx: IV protonix DISPO: continue care in ICU. Intubated. Pending clinical improvement. VS,Fishbone, I+O VS, Fishbone, I+O Laboratory Tests 10/13/19 19:24 10/14/19 06:08 Vital Signs Date Time Temp Pulse Resp B/P (MAP) Pulse Ox O2 Delivery O2 Flow Rate FiO2 10/14/19 10:00 30 10/14/19 08:00 99.1 82 31 124/82 (96) 95 Ventilator 10/11/19 03:01 2.0 I&O- Last 24 Hours up to 6 AM 10/14/19 06:00 Intake Total 1953.6 ml Output Total 1890 ml Balance 63.6 ml GME ATTESTATION GME ATTESTATION My faculty preceptor for this patient encounter was physically present during the encounter and was fully available. All aspects of the patient interview, examination, medical decision making process, and medical care plan development were reviewed and approved by the faculty preceptor. The faculty preceptor is aware and concurs with the plan as stated in the body of this note and will attest to such by his/her cosignature. ATTENDING NOTE I, Debbie Cooper, have independently examined this patient and performed my own physical exam, as well as reviewed the documentation and edited where necessary. I have discussed in detail with the resident / student the findings and plan of treatment as documented by the resident / student and edited their note. I agree with their findings and treatment plan and have edited their documentation. I will continue to follow the patient during this hospital stay. LAURENCE SHERWOOD DO Oct 14, 2019 10:37 DEBBIE COOPER MD Oct 14, 2019 12:36
--- NOTE | 2019-10-14 12:23 | CCN ---
DATE: 10/14/2019 SUBJECTIVE: Mr. Celestin is seen and examined this morning. He remains critically ill with acute hypoxic respiratory failure secondary to left upper lobe pneumonia. He remains with mechanical ventilation. There have been no hemodynamic events reported overnight. His maximum temperature (t-max) overnight was 99.8. A sedation holiday was attempted today. He did not necessarily make purposeful movements. He opened his eyes to voice; however, he became agitated and sedation was resumed. His minute ventilation does remain in the range of 15 to 16, which is precluding consideration for his extubation today. Otherwise, no adverse events have been reported overnight. OBJECTIVE: PHYSICAL EXAMINATION: VITAL SIGNS: Temperature 99.7, pulse 107, respiratory rate 31, blood pressure 137/59, pulse oximetry 94% on mechanical ventilator with FiO2 of 30. GENERAL: The patient is currently on mechanical ventilation. He does not appear agitated. He is currently sedated. He does appear tachypneic, although synchronous. HEENT: Nonicteric. Trachea midline. Pupils are 3 mm and reactive. The endotracheal tube is at 24 at the lip and appears in place. NECK: Supple. Somewhat chan. No apparent jugular venous distention (JVD). LUNGS: The patient has good air entry. There are continued bronchial breath sounds, worse on the left upper region of the lung daniels. There is no wheezing, rhonchi or rales. There is symmetric chest expansion and no accessory muscle use. CARDIOVASCULAR: Regular rhythm with a slightly tachycardic rate. Normal S1, S2. Occasional ectopic beats. There are no clicks, rubs or murmurs. ABDOMEN: The patient's abdomen is soft. It is nondistended. There are normoactive bowel sounds. No palpable masses appreciated. EXTREMITIES: There is no clubbing or cyanosis. There is continued edema, more so in the upper extremities, particularly on the right upper extremity into the hand. LABORATORY DATA Hematology: White blood cell count 10.3, hemoglobin 11.0, hematocrit 33.1, platelet count 256. Chemistry: Sodium 145, potassium 4.2, chloride 113, carbon dioxide 25, BUN 22, creatinine 0.8, fasting glucose 264. Calcium 7.0, phosphorous 2.6, magnesium 2.6. Serology: Urine Streptococcus pneumoniae antigen positive. Microbiology: Gram stain sputum culture positive for Streptococcus pneumoniae, pansensitive. Blood cultures from 10/11/2019 are positive for Streptococcus pneumoniae, pansensitive. IMAGING: Formal chest x-ray completed today and demonstrated endotracheal tube in continued good position. The nasogastric tube is present in the left upper quadrant. There continues to be an area of consolidation in the left upper lobe without much change from previous imaging. Intake and output: The patient remains without a bowel movement. He continues to be positive 1 liter. ASSESSMENT AND PLAN: 1. Acute hypoxemic respiratory failure requiring mechanical ventilation secondary to left upper lobe Streptococcus pneumoniae. 2. Sepsis secondary to Streptococcus pneumoniae, resolving. 3. Type 2 diabetes mellitus. 4. Gastroesophageal reflux disease (GERD). 5. Gastrointestinal prophylaxis with Protonix. 6. Deep vein thrombosis (DVT) prophylaxis with heparin every 8 hours. 7. Nutrition, on tube feeds. RECOMMENDATIONS: 1. Acute hypoxemic respiratory failure secondary to left upper lobe Streptococcus pneumoniae. The patient is currently with mechanical ventilation. His minute ventilation is still elevated around 15. Unfortunately, he cannot be extubated at this time. Sedation holiday was performed today. The patient did not necessarily make purposeful movements, however, he became agitation and Propofol was started again. We will attempt to titrate Propofol to the lowest dose possible. 2. Streptococcus pneumoniae. The patient is currently being managed per the primary team. He was previously on Zosyn. His cultures demonstrated tolliver sensitivity. He has been deescalated to ceftriaxone 2 grams every 24 hours, this will be continued. 3. Diabetes mellitus type 2. The patient has had consistently elevated glucoses throughout his hospital stay. This has been addressed. He is currently receiving 30 units of subcutaneous insulin, as well as sliding scale. 4. Gastroesophageal reflux disease (GERD). The patient is currently receiving Protonix. 5. Gastrointestinal prophylaxis. The patient is continued on Protonix. 6. Deep vein thrombosis (DVT) prophylaxis. The patient is currently receiving heparin every 8 hours. 7. Nutrition. Dietary consultation placed today with recommendations for tube feedings with Jevity 1.5 at 40 mL 24 hours for a total volume of 160 mL per day and recommendations of two scoops of benoprotein every 4 hours mixed with 120 mL of free water and flush with 120 mL post administration. CRITICAL CARE TIME: 30 minutes ADDENDUM: I, Dr. Brian Dougherty, was present and participated in the history and physical examination and agree with the documentation. I discussed the assessment and plan with the resident and agree with the above documentation. DILAN
[2019-10-14] MEDS: cefTRIAXone SOD 2 GM in D5W MINI-BAG PLUS 50 ML IV SCH (14:49)
[2019-10-14] MEDS: ACETAMINOPHEN 325 MG/10.15 ML UDC GT PRN (20:54)
[2019-10-14] MEDS ORDERED: LEVEMIR (INSULIN DETEMIR) 1 UNITS/0.01ML SC SCH (21:00)
[2019-10-15] VITALS (16 sets, daily range): BP systolic 106–131; BP diastolic 53–74; O2SAT 93–96
[2019-10-15] MEDS: HumaLOG INSULIN (NovoLOG) PER UNIT SC SCH ×4 (00:05→17:11)
[2019-10-15] MEDS: METOPROLOL TART 12.5 MG PER 1/2 TAB PO SCH ×4 (00:05→17:12)
[2019-10-15 00:06] LABS: URINE STREP PNEUMONIAE ANTIGEN Positive (Negative)
[2019-10-15] MEDS: ALBUTEROL 90 MCG/ACT 8GM HFA INHALER INH SCH ×3 (01:22→07:04)
[2019-10-15] MEDS: propofoL 1,000 MG in IV 1 EA IV SCH ×9 (03:00→21:26)
[2019-10-15 05:24] LABS: HEMATOCRIT 33.6 % (42.0-52.0); HEMOGLOBIN 10.7 g/dl (13.5-17.5); MEAN CORPUSCULAR HEMOGLOBIN 25.8 pg (27.0-33.0); MEAN CORPUSCULAR HGB CONC 31.8 g/dl (32.0-36.5); MEAN CORPUSCULAR VOLUME 81.2 fl (80.0-96.0); PLATELET COUNT, AUTOMATED 284 10^3/uL (150-450); RED BLOOD COUNT 4.14 10^6/uL (4.30-6.10); WHITE BLOOD COUNT 11.5 10^3/uL (4.0-10.0)
[2019-10-15 05:37] LABS: ALBUMIN 1.2 GM/DL (3.2-5.2); ALT/SGPT 72 U/L (12-78); BILIRUBIN,DIRECT 0.3 MG/DL (0.0-0.2); BILIRUBIN,TOTAL 0.7 MG/DL (0.2-1.0); BLOOD UREA NITROGEN 19 MG/DL (7-18); CALCIUM LEVEL 7.5 MG/DL (8.5-10.1); CARBON DIOXIDE LEVEL 28 MEQ/L (21-32); CHLORIDE LEVEL 110 MEQ/L (98-107); CREATININE FOR GFR 0.84 MG/DL (0.70-1.30); GLOMERULAR FILTRATION RATE > 60.0 (>56); GLUCOSE, FASTING 295 MG/DL (70-100); MAGNESIUM LEVEL 2.4 MG/DL (1.8-2.4); PHOSPHORUS LEVEL 2.4 MG/DL (2.5-4.9); POTASSIUM SERUM 4.1 MEQ/L (3.5-5.1); SODIUM LEVEL 143 MEQ/L (136-145); TOTAL PROTEIN 6.2 GM/DL (6.4-8.2)
[2019-10-15] MEDS: HEPARIN SOD (PORCINE) 5000UNITS/ML VIAL (J1644 PER 1000UNITS) SC SCH ×3 (05:59→21:26)
--- NOTE | 2019-10-15 07:24 | REP ---
Portable chest x-ray: Single view. History: Intubated patient. Comparison chest x-ray: October 14, 2019. Findings: Endotracheal tube is in good position at the level of the proximal clavicles. NG tube is noted entering the left upper quadrant of the abdomen. Monitoring electrodes are seen. There is hazy diffuse opacity throughout the left lung consistent with the infiltrate noted previously. This is unchanged from yesterday's radiograph but somewhat improved from October 12 October 10 radiographs. No infiltrate is seen on the right. Electronically Signed by Anil Tatum MD 10/15/2019 07:16 A
[2019-10-15] MEDS ORDERED: LEVEMIR (INSULIN DETEMIR) 1 UNITS/0.01ML SC ONE (08:00)
[2019-10-15] MEDS: PANTOPRAZOLE 40MG VIAL (C9113 PER 1) IV SCH (08:39)
[2019-10-15] MEDS: CHLORHEXIDINE GLUCONATE 0.12 % 15ML UDC (PERIDEX ORAL RINSE) MT SCH ×2 (08:39→21:26)
[2019-10-15] MEDS ORDERED: LEVEMIR (INSULIN DETEMIR) 1 UNITS/0.01ML SC SCH ×2 (09:00→21:00)
--- NOTE | 2019-10-15 09:57 | CCN ---
DATE OF VISIT: 10/15/2019 START TIME: 844 STOP TIME: 919 I attended [place] Celestin here in the intensive care unit. The patient has been examined and the chart reviewed. I spoke at length with the nurse at the bedside. T-max overnight was 99.3. Heart rate generally in the 70s to 80s with a sinus mechanism. Blood pressure 120-130s. Respiratory rate remains in the 20s. Ins and outs midnight to midnight 3213 mL in with 2525 mL out. Most recent laboratories showed a white blood cell count of 11.5, hemoglobin 10.7, platelet count 284,000. No differential today. Sodium 143, potassium 4.1, chloride 110, CO2 28, BUN 19, creatinine 0.84, glucose 295. No new blood gases. Sputum culture from several days ago did confirm Strep pneumoniae. Sensitivities matched those from his blood cultures. Chest x-ray done this morning shows lines and tubes in good position. No change in his left sided infiltrate. Right chest is a little better aerated today. On exam, he is sedate with propofol, but does move all extremities. Pupils react. Sclerae are clear. Trachea is in the midline. Chest shows some rhonchi, left greater than right. Some fine dependent crackles. No rubs. No wheezes. Cardiac exam distant, but regular. Peripheral pulses palpable. There is at least 1+ diffuse edema. Abdomen obese, soft, with active bowel sounds. No convincing organomegaly or masses. Extremities without cyanosis or clubbing. Neurologically, he is sedate, but does move all extremities. The most pressing problems requiring my presence at the bedside are: 1. Respiratory failure secondary to pneumonia. 2. Pneumococcal pneumonia with sepsis. 3. Non insulin diabetes mellitus. At this point, we will try him on a mode of ventilation more consistent with weaning and continue to assess him. If he does well with that, we will lighten his sedation. He still has a somewhat high minute ventilation, but this should not preclude at least an attempt at a weaning process. He has been on inhalers as opposed to nebulizers, but given the fact that he is not a COVID patient, then we will change to aerosols as he has had some problems with thick secretions. He is tolerating tube feeds. Ulcer and deep vein thrombosis (DVT) prophylaxis are in place. I spoke with the hospitalist service regarding his care as well this morning as well as his bedside nurse. Will proceed as outlined above. I left the bedside at 0920 hours. A total of 35 minutes of critical care time was delivered at the bedside, not including procedures.
--- NOTE | 2019-10-15 10:52 | IPNPDOC ---
Text Note Date of Service The patient was seen on 10/15/19. NOTE S: Pt examined at bedside. Still spiking fevers 100.4 and remains intubated. Diuresed 2.5 L yesterday, and remains in NSR. PE: General exam: resting comfortably intubated & sedated HEENT: NCAT, injected conjunctiva, PERRL Cardiac: RRR, normal S1 & S2 Respiratory: on vent, good air exchange, course rhonchi dispersed, otherwise clear throughout Abdomen: soft, NT, ND, OG tube in place : live in place with clear urine Extremity: 2+ radial pulses, 1+ b/l LE edema & edematous hands b/l improved from prior days Neuro: noncommunicative on sedation & intubation A/P: 59-year-old male brought in by son for altered mental status. Found to be septic with a left upper lobe pneumonia on admission, requiring intubation within a few hours of hospitalization. 1. Acute hypoxic respiratory failure / ventilator-dependent respiratory failure 2/2 severe sepsis 2/2 left upper lobe Strep pneumonia - Remains intubated on FiO2 of 30; Procal 11. - blood and sputum cultures +Strep pneumo - repeat CXR reveals improving infiltrate. CRP downtrending - Pulmonary on board, appreciate input. Started tube feeds 10/12 - Per Pulm, plans to attempt extubation today or tomorrow 2. Multiorgan failure and Severe sepsis 2/2 Strep Pneumo bacteremia 2/2 strep pneumonia PNA - still having fever of 100.4. CRP downtrending, WBC mild increase - improving tachypnea, still on vent - gradually improving transaminits and ROSITA from admission resolved s/p abx and IVF - intermittent episodes of new AFib/flutter in RVR [10/11/19 & 10/12] - Echo: Normal LVEF, grade 2 diastolic dysfunction, no significant valvular disease, elevated CVP with mild pulmonary hypertension - c/w Ceftriaxone; s/p Vanco and Zosyn - repeat blood cultures pending 3. Intermittent bouts of A. fib in RVR 10/11/19 and 10/13/19 - No prior documented AFib hx. Appears to be new onset - S/p IV and po Lopressor, tolerates well - Likely 2/2 acutely ill state. Cardiac markers negative and echo unremarkable - started on po Metoprolol tartrate 12.5mg q6h with hold parameters - otherwise remaining in NSR 4. Decompensated heart failure with preserved EF - s/p 8L infused on initial septic state - Grade 2 diastolic dysfxn noted on echo - pt edematous. Avoid IVF - diuresed well yesterday, will hold for today and monitor 5. NKHHS with pseudohyponatremia - resolved with intermittent doses of insulin. Sugars down to 200-300 - Initially came in in the 800s without any anion gap on admission, acidotic and with serum ketones - Likely 2/2 acutely septic state and poorly-controlled sugars at baseline with a1c 10 - Still hyperglycemic. Will titrate up long-acting insulin and continue ISS coverage 6. Iron-deficiency & chronic anemia - anemia w/u noted. Will require supplementation when tolerating po. No overt bleed. H&H stable 7. Acute metabolic encephalopathy - reportedly confused on admission. Ammonia nml. Likely 2/2 acutely ill state and sepsis. Monitor mentation when extubated. DVT ppx: heparin sc & mechanical GI ppx: IV protonix DISPO: continue care in ICU. Intubated. Pending clinical improvement. VS,Fishbone, I+O VS, Fishbone, I+O Laboratory Tests 10/15/19 04:55 10/15/19 05:05 Vital Signs Date Time Temp Pulse Resp B/P (MAP) Pulse Ox O2 Delivery O2 Flow Rate FiO2 10/15/19 10:02 98.8 80 24 125/60 94 Ventilator 30 10/11/19 03:01 2.0 I&O- Last 24 Hours up to 6 AM 10/15/19 06:00 Intake Total 3799.5 ml Output Total 3525 ml Balance 274.5 ml GME ATTESTATION GME ATTESTATION My faculty preceptor for this patient encounter was physically present during the encounter and was fully available. All aspects of the patient interview, examination, medical decision making process, and medical care plan development were reviewed and approved by the faculty preceptor. The faculty preceptor is aware and concurs with the plan as stated in the body of this note and will attest to such by his/her cosignature. ATTENDING NOTE I, Debbie Cooper, have independently examined this patient and performed my own physical exam, as well as reviewed the documentation and edited where necessary. I have discussed in detail with the resident / student the findings and plan of treatment as documented by the resident / student and edited their note. I agree with their findings and treatment plan and have edited their documentation. I will continue to follow the patient during this hospital stay. LAURENCE SHERWOOD DO Oct 15, 2019 10:52 DEBBIE COOPER MD Oct 15, 2019 12:08
[2019-10-15] MEDS: ALBUTEROL SULFATE 2.5 MG/0.5 ML INH NEB SOLN NEB SCH ×3 (11:05→19:44)
[2019-10-15] MEDS: ACETAMINOPHEN 325 MG/10.15 ML UDC GT PRN ×2 (12:02→17:17)
[2019-10-15] MEDS: cefTRIAXone SOD 2 GM in D5W MINI-BAG PLUS 50 ML IV SCH (14:38)
[2019-10-15] MEDS: MIDAZOLAM INJ 2MG/2ML VIAL (J2250 PER 1MG) IV PRN (19:40)
[2019-10-16] VITALS (12 sets, daily range): BP systolic 100–137; BP diastolic 52–91; O2SAT 94–96
[2019-10-16] MEDS: ALBUTEROL SULFATE 2.5 MG/0.5 ML INH NEB SOLN NEB SCH ×7 (00:06→23:23)
[2019-10-16] MEDS: propofoL 1,000 MG in IV 1 EA IV SCH ×8 (00:10→23:32)
[2019-10-16] MEDS: METOPROLOL TART 12.5 MG PER 1/2 TAB PO SCH ×3 (00:11→11:27)
[2019-10-16] MEDS: HumaLOG INSULIN (NovoLOG) PER UNIT SC SCH ×4 (00:11→18:02)
[2019-10-16] MEDS: MIDAZOLAM INJ 2MG/2ML VIAL (J2250 PER 1MG) IV PRN ×5 (01:44→09:56)
[2019-10-16] MEDS: HEPARIN SOD (PORCINE) 5000UNITS/ML VIAL (J1644 PER 1000UNITS) SC SCH ×3 (05:01→21:13)
[2019-10-16 05:11] LABS: HEMATOCRIT 32.5 % (42.0-52.0); HEMOGLOBIN 10.3 g/dl (13.5-17.5); MEAN CORPUSCULAR HEMOGLOBIN 25.8 pg (27.0-33.0); MEAN CORPUSCULAR HGB CONC 31.7 g/dl (32.0-36.5); MEAN CORPUSCULAR VOLUME 81.5 fl (80.0-96.0); PLATELET COUNT, AUTOMATED 362 10^3/uL (150-450); RED BLOOD COUNT 3.99 10^6/uL (4.30-6.10); WHITE BLOOD COUNT 10.6 10^3/uL (4.0-10.0)
[2019-10-16 05:34] LABS: BLOOD UREA NITROGEN 19 MG/DL (7-18); CALCIUM LEVEL 7.4 MG/DL (8.5-10.1); CARBON DIOXIDE LEVEL 27 MEQ/L (21-32); CHLORIDE LEVEL 110 MEQ/L (98-107); CREATININE FOR GFR 0.74 MG/DL (0.70-1.30); GLOMERULAR FILTRATION RATE > 60.0 (>56); GLUCOSE, FASTING 279 MG/DL (70-100); MAGNESIUM LEVEL 2.3 MG/DL (1.8-2.4); PHOSPHORUS LEVEL 2.5 MG/DL (2.5-4.9); POTASSIUM SERUM 3.7 MEQ/L (3.5-5.1); SODIUM LEVEL 142 MEQ/L (136-145)
[2019-10-16 07:38] LABS: C REACTIVE PROTEIN QUANTITATIV 8.49 MG/DL (0.00-0.30)
--- NOTE | 2019-10-16 08:37 | REP ---
REASON: Followup. COMPARISON: Multiple, the latest yesterday at 7 a.m. The nasogastric tube and endotracheal tube are unchanged. The technique utilized in obtaining the radiograph has magnified the cardiac silhouette and accentuated the interstitial markings. Patchy opacities throughout the left lung, status quo. No new abnormal opacities in either right or left lung. No change in the osseous structures. IMPRESSION: No change. Electronically Signed by Hal Rabago DO 10/16/2019 08:57 A
[2019-10-16] MEDS: PANTOPRAZOLE 40MG VIAL (C9113 PER 1) IV SCH (08:41)
[2019-10-16] MEDS: CHLORHEXIDINE GLUCONATE 0.12 % 15ML UDC (PERIDEX ORAL RINSE) MT SCH ×2 (08:41→21:17)
[2019-10-16] MEDS: LEVEMIR (INSULIN DETEMIR) 1 UNITS/0.01ML SC SCH ×2 (08:41→21:00)
[2019-10-16] MEDS ORDERED: BISACODYL 10 MG SUPP PR PRN (09:15)
[2019-10-16 09:34] LABS: ABG BASE EXCESS 2.7 (-2.0-2.0); ABG HCO3 25.6 MEQ/L (22.0-26.0); ABG O2 SATURATION 95.4 % (95.0-99.0); ABG PARTIAL PRESSURE CO2 33.3 mmHg (35.0-45.0); ABG PARTIAL PRESSURE O2 74.8 mmHg (75.0-100.0); ABG STANDARD HCO3 26.8 MEQ/L (22.0-26.0); ABG TOTAL CO2 26.6 MEQ/L (22.0-29.0); ABG pH (ARTERIAL) 7.503 UNITS (7.350-7.450)
--- NOTE | 2019-10-16 09:34 | IPNPDOC ---
Text Note Date of Service The patient was seen on 10/16/19. NOTE S: Pt examined at bedside. Intubated on FiO2 30, PEEP 5. Fevers of 100.6 in past 24 hrs. 4 and remains intubated. Diuresed 2.5 L yesterday with net positive 860. HR controlled and remains in NSR. PE: General exam: resting comfortably intubated & sedated HEENT: NCAT, injected conjunctiva, PERRL Cardiac: RRR, normal S1 & S2 Respiratory: on vent, good air exchange, CTAB Abdomen: soft, NT, ND, OG tube in place : live in place with clear urine Extremity: 2+ radial pulses, 1+ b/l LE edema & edematous hands b/l improved from initial days Neuro: noncommunicative on sedation & intubation A/P: 59-year-old male brought in by son for altered mental status. Found to be septic with a left upper lobe pneumonia on admission, requiring intubation within a few hours of hospitalization. 1. Acute hypoxic respiratory failure / ventilator-dependent respiratory failure 2/2 severe sepsis 2/2 left upper lobe Strep pneumonia - Remains intubated on FiO2 of 30; Procal 11. - blood and sputum cultures +Strep pneumo - repeat CXR reveals improving infiltrate. CRP overall downtrending - Pulmonary on board, appreciate input. Started tube feeds 10/12 - Per Pulm, plans to re-attempt extubation today or tomorrow 2. Multiorgan failure and Severe sepsis 2/2 Strep Pneumo bacteremia 2/2 strep pneumonia PNA - still having fever of 100.6. CRP upon recheck is unchaged and WBC decreased, almost WNL - improving tachypnea, still on vent. Repeat blood cultures negative - gradually improving transaminits and ROSITA from admission resolved s/p abx and IVF - intermittent episodes of new AFib/flutter in RVR [10/11/19 & 10/12] - Echo: Normal LVEF, grade 2 diastolic dysfunction, no significant valvular disease, elevated CVP with mild pulmonary hypertension - c/w Ceftriaxone [day #4]; s/p Vanco and Zosyn 3. Intermittent bouts of A. fib in RVR 10/11/19 and 10/13/19 - No prior documented AFib hx. Appears to be new onset - S/p IV and po Lopressor, tolerates well - Likely 2/2 acutely ill state. Cardiac markers negative and echo unremarkable - Will provide metoprolol 5 mg IV until rate is controlled - c/w Metoprolol tartrate; will increase dose to 25 q6h 4. Decompensated heart failure with preserved EF - s/p 8L infused on initial septic state - Grade 2 diastolic dysfxn noted on echo - pt edematous. Avoid IVF - Auto-diuresed well yesterday, will continue holding diuretics and monitor 5. NKHHS with pseudohyponatremia - resolved with intermittent doses of insulin. Sugars down to 200-300 - Initially came in in the 800s without any anion gap on admission, acidotic and with serum ketones - Likely 2/2 acutely septic state and poorly-controlled sugars at baseline with a1c 10 - Still hyperglycemic. Will titrate up long-acting insulin and continue ISS coverage 6. Iron-deficiency & chronic anemia - anemia w/u noted. Will require supplementation when tolerating po. No overt bleed. H&H stable 7. Acute metabolic encephalopathy - reportedly confused on admission. Ammonia nml. Likely 2/2 acutely ill state and sepsis. Monitor mentation when extubated. DVT ppx: heparin sc & mechanical GI ppx: IV protonix DISPO: continue care in ICU. Intubated. Pending clinical improvement. VS,Fishbone, I+O VS, Fishbone, I+O Laboratory Tests 10/16/19 04:52 Vital Signs Date Time Temp Pulse Resp B/P (MAP) Pulse Ox O2 Delivery O2 Flow Rate FiO2 10/16/19 06:00 30 10/16/19 05:02 80 112/56 10/16/19 04:43 96 Ventilator 10/16/19 04:40 20 10/16/19 04:00 99.0 10/11/19 03:01 2.0 I&O- Last 24 Hours up to 6 AM 10/16/19 06:00 Intake Total 2990 ml Output Total 1920 ml Balance 1070 ml GME ATTESTATION GME ATTESTATION My faculty preceptor for this patient encounter was physically present during the encounter and was fully available. All aspects of the patient interview, examination, medical decision making process, and medical care plan development were reviewed and approved by the faculty preceptor. The faculty preceptor is aware and concurs with the plan as stated in the body of this note and will attest to such by his/her cosignature. ATTENDING NOTE I, Debbie Cooper, have independently examined this patient and performed my own physical exam, as well as reviewed the documentation and edited where necessary. I have discussed in detail with the resident / student the findings and plan of treatment as documented by the resident / student and edited their note. I agree with their findings and treatment plan and have edited their documentation. I will continue to follow the patient during this hospital stay. LAURENCE SHERWOOD DO Oct 16, 2019 09:34 DEBBIE COOPER MD Oct 16, 2019 12:37
--- NOTE | 2019-10-16 09:55 | CCN ---
DATE OF VISIT: 10/16/2019 START TIME: 840 STOP TIME: 913 I again attended [place] Celestin here in the intensive care unit. The patient has been examined and the chart is reviewed. I spoke at length with the nurse at the bedside. Maximum temperature (Tmax) overnight 99.5. Blood pressure 100-133 systolic. Heart rate 70 to 80s with a sinus mechanism. Intake and output (I's and O's) midnight to midnight 3395 mL in with 2535 mL out. Chest x-ray done today compared to multiple priors again shows his endotracheal tube to be in good position. He has his persistent left-sided infiltrate. Suboptimal inspiratory effort today which suggests some increased markings on the right, but I believe this may be artificial based on technique and inspiratory effort. Other laboratories show white blood cell count down to 10.6, hemoglobin 10.3, platelet count 362,000. No differential today. Sodium 142, potassium 3.7, chloride 110, CO2 27, BUN 19, creatinine 0.74, glucose 279. Repeat blood cultures done yesterday show no growth at 24 hours, and the repeat cultures from 10/12/2019 are no growth. On exam, currently is in the midst of a sedation vacation and is arousable and does follow commands. Mildly more tachypneic when awake. HEENT shows pupils react. Sclerae clear. Trachea is in the midline. Mucous membranes of nose and mouth are moist. Chest shows symmetric expansion. Egophony in the left mid lung zone. There are basilar crackles bilaterally. No convincing rhonchus today. Cardiac exam is distant but regular. Peripheral pulses palpable. Trace edema is unchanged. Abdomen obese, soft, with active bowel sounds. No convincing organomegaly or masses. Extremities show no cyanosis or clubbing. Neurologically, as outlined above. Most pressing problems requiring my presence at the bedside: 1. Respiratory failure secondary to pneumococcal pneumonia. 2. Pneumococcal pneumonia with sepsis. 3. Non-insulin diabetes mellitus. 4. Gastroesophageal reflux disease. At this point, we will continue to push ventilator weaning, although I do not believe his is quite ready for it. We will continue to push him as tolerated in hopes of optimizing his respiratory musculature. He was placed back on aerosols yesterday, and he has much less trouble today with secretions. For now, we will continue his current antimicrobials. His repeat blood cultures are negative. Ulcer and deep vein thrombosis (DVT) prophylaxis are in place. From a nutritional standpoint, he is tolerating tube feeds. He has not had bowel movement yet, and we will add a cathartic today. We are at the point where we can begin to lighten his sedation somewhat and use some as needed (p.r.n.) sedatives as needed and this will certain aid in our weaning process. Glucose is being managed by the primary service. At this point, we will proceed as outlined above. His prognosis does remain guarded, but we will see how he does with the above interventions. I left the bedside at 0914 hours. A total of 33 minutes of critical care time delivered at the bedside, not including procedures.
[2019-10-16] MEDS ORDERED: METOPROLOL 5 MG/5 ML VIAL IV STA ×2 (10:12→12:37)
[2019-10-16] MEDS ORDERED: METOPROLOL TART 12.5 MG PER 1/2 TAB PO ONE (13:00)
[2019-10-16] MEDS: cefTRIAXone SOD 2 GM in D5W MINI-BAG PLUS 50 ML IV SCH (14:06)
[2019-10-16] MEDS ORDERED: PILL CUTTER 1 EACH XX ONE (17:56)
[2019-10-16] MEDS: METOPROLOL TART 25 MG TABLET PO SCH (18:01)
[2019-10-17] VITALS (12 sets, daily range): BP systolic 104–160; BP diastolic 50–80; O2SAT 93–96
[2019-10-17] MEDS: HumaLOG INSULIN (NovoLOG) PER UNIT SC SCH ×4 (00:24→17:58)
[2019-10-17] MEDS: METOPROLOL TART 25 MG TABLET PO SCH ×4 (00:25→18:02)
[2019-10-17] MEDS: DOCUSATE SOD LIQ 100MG/10ML UDC GT SCH ×3 (00:25→21:21)
[2019-10-17] MEDS: MIDAZOLAM INJ 2MG/2ML VIAL (J2250 PER 1MG) IV PRN ×2 (00:52→03:55)
[2019-10-17] MEDS: propofoL 1,000 MG in IV 1 EA IV SCH ×2 (01:58→04:49)
[2019-10-17] MEDS: ALBUTEROL SULFATE 2.5 MG/0.5 ML INH NEB SOLN NEB SCH ×5 (03:34→19:40)
[2019-10-17 05:26] LABS: HEMATOCRIT 30.8 % (42.0-52.0); HEMOGLOBIN 9.9 g/dl (13.5-17.5); MEAN CORPUSCULAR HEMOGLOBIN 26.4 pg (27.0-33.0); MEAN CORPUSCULAR HGB CONC 32.1 g/dl (32.0-36.5); MEAN CORPUSCULAR VOLUME 82.1 fl (80.0-96.0); PLATELET COUNT, AUTOMATED 416 10^3/uL (150-450); RED BLOOD COUNT 3.75 10^6/uL (4.30-6.10); WHITE BLOOD COUNT 10.1 10^3/uL (4.0-10.0)
[2019-10-17 05:51] LABS: ALBUMIN 1.2 GM/DL (3.2-5.2); ALT/SGPT 40 U/L (12-78); BILIRUBIN,DIRECT 0.2 MG/DL (0.0-0.2); BILIRUBIN,TOTAL 0.3 MG/DL (0.2-1.0); BLOOD UREA NITROGEN 18 MG/DL (7-18); CALCIUM LEVEL 7.2 MG/DL (8.5-10.1); CARBON DIOXIDE LEVEL 27 MEQ/L (21-32); CHLORIDE LEVEL 111 MEQ/L (98-107); CREATININE FOR GFR 0.64 MG/DL (0.70-1.30); GLOMERULAR FILTRATION RATE > 60.0 (>56); GLUCOSE, FASTING 205 MG/DL (70-100); MAGNESIUM LEVEL 2.1 MG/DL (1.8-2.4); PHOSPHORUS LEVEL 2.5 MG/DL (2.5-4.9); SODIUM LEVEL 144 MEQ/L (136-145); TOTAL PROTEIN 5.6 GM/DL (6.4-8.2)
[2019-10-17] MEDS: HEPARIN SOD (PORCINE) 5000UNITS/ML VIAL (J1644 PER 1000UNITS) SC SCH ×3 (06:07→21:21)
[2019-10-17] MEDS: CHLORHEXIDINE GLUCONATE 0.12 % 15ML UDC (PERIDEX ORAL RINSE) MT SCH (08:29)
[2019-10-17] MEDS: LEVEMIR (INSULIN DETEMIR) 1 UNITS/0.01ML SC SCH ×2 (08:30→21:20)
[2019-10-17] MEDS: PANTOPRAZOLE 40MG VIAL (C9113 PER 1) IV SCH (08:30)
--- NOTE | 2019-10-17 09:19 | REP ---
REASON: Followup. COMPARISON: Multiple, the latest yesterday. The endotracheal tube and nasogastric tube are unchanged. Patchy opacities in the left lung essentially unchanged when the technical differences between the examinations are taken into consideration. No definite new opacities have developed. There is no change in the osseous structures. IMPRESSION: Essentially no change. Electronically Signed by Hal Rabago DO 10/17/2019 10:45 A
--- NOTE | 2019-10-17 09:50 | IPN ---
DATE: 10/17/2019 I again attended Mr. Celestin here in the recovery room which is the ICU for now. He is on minimal sedation at this point. Easily arouses and does follow commands. T-max overnight 99.7, blood pressure 104-130 systolic, heart rate 70-80s with a sinus mechanism, respiratory rate 18 to the low 20s. Ins and outs midnight to midnight 2830 mL in with 2600 mL out. Chest x-ray done this morning shows improved aeration, especially at the left base. Other laboratories show a white blood cell count of 10.1, hemoglobin 9.9, platelet count 416,000, sodium 144, potassium 4.0, chloride 111, CO2 27, BUN 18, creatinine 0.64, glucose 205. Albumin remains depressed at 1.2. No new blood gas this morning. On exam he is easily arousable, somewhat groggy but follows commands. Pupils react. Sclera clear. Trachea is in the midline. Chest still shows diminished but symmetric expansion and some occasional rhonchi that clear with suctioning. I do believe there is still some egophony on the left. No other focal adventitious breath sounds are identified. Cardiac exam is regular with no gallop. Peripheral pulses palpable. Trace edema. Abdomen is soft with active bowel sounds. No evidence of organomegaly or masses. Extremities no cyanosis or clubbing. Neurologically, he is arousable, moves all extremities. Blood cultures from 10/14 remain negative and the ones from 10/11 show no growth after five days, after his initial cultures all grew streptococcus pneumoniae. IMPRESSION: 1. Respiratory failure secondary to pneumococcal pneumonia. 2. Pneumococcal pneumonia with sepsis. 3. Underlying diabetes. RECOMMENDATIONS: At this point, he remains afebrile. His white count is improved as has his chest x-ray. His minute ventilation demands have also diminished. In view of this, we will attempt to push his weaning towards extubation today. In preparation for that, we have discontinued his sedation and held his tube feeds. For now, we will continue his current antimicrobials. Ulcer and deep vein thrombosis (DVT) prophylaxis remain in place. Overall, he does remain critically ill, but we will proceed as outlined above. Further recommendations will be made in the progress records as new information becomes available.
--- NOTE | 2019-10-17 12:26 | IPNPDOC ---
Text Note Date of Service The patient was seen on 10/17/19. NOTE Subjective: Patient is a 59-year-old male with a PMHx NIDDM2, Fatty liver, Obesity, GERD, who presented to the emergency room (10/10) because of hallucinat ions. Patient was brought in to the emergency room by his son who is reported that patient has been experiencing a productive cough and shortness of breath for 1 week duration. In the emergency room, patient was found to have a pneumonia and was admitted to the hospitalist service for further evaluation, treatment on that evening. Patient was intubated (10/10) because of worsening respiratory status. Patient was seen and examined at the bedside. Patient remained intubated and sedated. Objective: Vitals (See below) General: Lying in bed, intubated / sedated, Opens eyes HEENT: NC, AT CVS: +S1S2 Lungs: Poor inspiratory effort, no appreciable wheezing / crackles noted, Abdomen: Soft, ND, NT, + obesity Extremities: Trace LE edema, - Calf tenderness Assessment and plan: Acute hypoxic respiratory failure / ventilator-dependent respiratory failure 2/2 severe sepsis 2/2 left upper lobe Strep pneumonia - Patient was intubated on admission of 10/10 - Clinically has had improvement of his RR - Lab work has shown improvement - Plans for extubation today - Pulmonary/sports physiotherapist on consultation; appreciate their input Severe Sepsis 2/2 Streptococcus pneumonia bacteremia 2/2 Streptococcus pneumonia PNA - Clinically patient RR has improved - Leukocytosis, resolving / Will trend CRP - Blood cultures initially (10/13) positive for Streptococcus pneumonia; Repeat on 10/14: Negative - Imaging has shown improvement of aeration - c/w Ceftriaxone; s/p Vancomycin and Zosyn (Antibiotic day #7) A. fib with RVR - Patient experienced episodes of rapid ventricular rate - s/p Metoprolol tartrate IV - Will continue with rate control with metoprolol at adjusted dose - Will likely require full anticoagulation once out of acute state Fluid overload - likely 2/2 decompensated heart failure with preserved EF - Clinically appears to be approaching euvolemia - ECHO 10/11: Grade 2 diastolic dysfunction noted - s/p Diuretics - Continues to have adequate fluid balance; slight positive likely 2/2 oral tube feeding intake Non-ketotic Hyperglycemic Hyperosmolar State / NIDDM2 - Hyperglycemia has improved / Osmolality elevated on admission / Normal AG - Has improved with IV fluid hydration - c/w ISS and Levemir s/p ROSITA - likely 2/2 severe sepsis s/p Pseudohyponatremia - 2/2 Hyperglycemia Iron-deficiency / Chronic anemia - Hg remains stable - Will continue to follow Acute metabolic encephalopathy - Has had confusion on admission - Has been able to follow commands over the last 48 hours (re: during sedation vacation) - Ammonia level wnl GI prophylaxis - c/w Protonix IV DVT prophylaxis - c/w Heparin Disposition: - Plans for extubation today VS,Fishbone, I+O VS, Fishbone, I+O Laboratory Tests 10/17/19 05:13 Vital Signs Date Time Temp Pulse Resp B/P (MAP) Pulse Ox O2 Delivery O2 Flow Rate FiO2 10/17/19 11:40 96 Nasal Cannula 3.0 10/17/19 10:00 87 10/17/19 10:00 99.2 20 154/67 (96) 10/17/19 09:45 35 I&O- Last 24 Hours up to 6 AM 10/17/19 06:00 Intake Total 2410 ml Output Total 2265 ml Balance 145 ml CANDELARIO COOPER MD Oct 17, 2019 12:26
[2019-10-17] MEDS: cefTRIAXone SOD 2 GM in D5W MINI-BAG PLUS 50 ML IV SCH (14:53)
[2019-10-18] VITALS (19 sets, daily range): BP systolic 114–151; BP diastolic 56–83; O2SAT 90–98
[2019-10-18] MEDS: ALBUTEROL SULFATE 2.5 MG/0.5 ML INH NEB SOLN NEB SCH ×7 (00:03→23:35)
[2019-10-18] MEDS: HumaLOG INSULIN (NovoLOG) PER UNIT SC SCH ×5 (00:13→17:02)
[2019-10-18] MEDS: METOPROLOL TART 25 MG TABLET PO SCH ×5 (00:13→23:37)
[2019-10-18] MEDS ORDERED: SODIUM CHLORIDE NASAL 0.65% SPRAY BTL (OCEAN) PRN (02:15)
[2019-10-18 05:04] LABS: HEMATOCRIT 33.1 % (42.0-52.0); HEMOGLOBIN 10.4 g/dl (13.5-17.5); MEAN CORPUSCULAR HEMOGLOBIN 25.7 pg (27.0-33.0); MEAN CORPUSCULAR HGB CONC 31.4 g/dl (32.0-36.5); MEAN CORPUSCULAR VOLUME 81.9 fl (80.0-96.0); PLATELET COUNT, AUTOMATED 464 10^3/uL (150-450); RED BLOOD COUNT 4.04 10^6/uL (4.30-6.10); WHITE BLOOD COUNT 10.4 10^3/uL (4.0-10.0)
[2019-10-18 05:25] LABS: BLOOD UREA NITROGEN 13 MG/DL (7-18); C REACTIVE PROTEIN QUANTITATIV 3.65 MG/DL (0.00-0.30); CALCIUM LEVEL 7.6 MG/DL (8.5-10.1); CARBON DIOXIDE LEVEL 26 MEQ/L (21-32); CHLORIDE LEVEL 106 MEQ/L (98-107); CREATININE FOR GFR 0.47 MG/DL (0.70-1.30); GLOMERULAR FILTRATION RATE > 60.0 (>56); GLUCOSE, FASTING 75 MG/DL (70-100); MAGNESIUM LEVEL 1.7 MG/DL (1.8-2.4); POTASSIUM SERUM 3.7 MEQ/L (3.5-5.1); SODIUM LEVEL 138 MEQ/L (136-145)
[2019-10-18] MEDS: HEPARIN SOD (PORCINE) 5000UNITS/ML VIAL (J1644 PER 1000UNITS) SC SCH (06:24)
--- NOTE | 2019-10-18 07:38 | REP ---
Clinical: Respiratory distress. Prior intubation. Comparison: 10/17/2019. Findings: Mediastinum and cardiac silhouette are stable. Previously noted endotracheal tube and nasogastric tube have been removed. The right hemithorax is relatively clear while diffuse primarily alveolar infiltrates are identified throughout the left hemithorax essentially unchanged from prior examination. No obvious effusion. No pneumothorax. Skeletal structures intact. Impression: 1. Left-sided alveolar infiltrates essentially unchanged from prior examination. 2. No new acute infiltrate or effusion identified. 3. Previously noted ETT and NGT have been removed. Electronically Signed by Gomez Pleitez MD 10/18/2019 07:30 A
[2019-10-18] MEDS ORDERED: MAG SULF 1GM/100ML (MAG RUN) 1 GM in IV 1 EA IV ONE (08:00)
[2019-10-18] MEDS ORDERED: MAGNESIUM OXIDE 400 MG TAB (MAG-OX) PO ONE (08:00)
[2019-10-18] MEDS: LEVEMIR (INSULIN DETEMIR) 1 UNITS/0.01ML SC SCH ×2 (08:34→20:11)
[2019-10-18] MEDS ORDERED: ACETAMINOPHEN TAB 650MG DOSE (2X325MG) PO PRN (08:45)
[2019-10-18] MEDS ORDERED: SENOKOT S TAB PO PRN (08:45)
[2019-10-18] MEDS: DOCUSATE SODIUM 100 MG CAP PO SCH ×2 (09:27→20:04)
[2019-10-18] MEDS: AUGMENTIN 875 MG TAB PO SCH ×2 (10:50→20:11)
--- NOTE | 2019-10-18 11:17 | IPNPDOC ---
Text Note Date of Service The patient was seen on 10/18/19. NOTE S: Pt examined at bedside. Was extubated yesterday and doing well since. Tolerating clear liquids and brought to room air. Admits to weakness and difficulty with hand-eye coordination and ambulating since admission. Operation Manager cp, sob , n/v/abd pain. PE: General exam: sitting up comfortably eating breakfast, A&Ox3, NAD HEENT: NCAT, injected conjunctiva, PERRL Cardiac: RRR, normal S1 & S2 Respiratory: good air exchange, CTAB, no accessory muscle use Abdomen: soft, NT, ND, +bowel sounds : live in place with clear urine Extremity: 2+ radial pulses, trace b/l LE edema Neuro: follows commands & converses appropriately A/P: 59-year-old male brought in 10/10 by son for altered mental status/hallucinations, cough and short of breath for 1 week. Found to be septic with a left upper lobe pneumonia on admission, requiring intubation within a few hours of hospitalization, extubated 10/16. 1. Acute hypoxic respiratory failure / ventilator-dependent respiratory failure 2/2 severe sepsis 2/2 left upper lobe Strep pneumonia - Intubated 10/10, extubated 10/16. Breathing well on RA with no complaints - blood and sputum cultures +Strep pneumo - repeat imaging reveal improving infiltrate. CRP overall downtrending - Pulmonary on board, appreciate input - continue abx as below 2. Severe sepsis 2/2 Strep Pneumo bacteremia 2/2 strep pneumonia PNA - pt feels well since extubated and breathing RA. No longer tachypnic or tachycardic - afebrile with borderline leukocytosis. Donwtrending CRP. Repeat blood cx's negative - ROSITA & hepatic impairment resolved s/p abx and IVF - intermittent episodes of new AFib/flutter no longer in RVR - switch to po Augmentin, s/p Ceftriaxone, Vanco and Zosyn 3. Intermittent bouts of A. fib in RVR - No prior documented AFib hx. Appears to be new onset - Echo: Normal LVEF, grade 2 diastolic dysfunction, no significant valvular disease, elevated CVP with mild pulmonary hypertension - S/p IV and po Lopressor, tolerates well - Likely 2/2 acutely ill state. Cardiac markers negative and echo unremarkable - c/w Metoprolol tartrate po 25mg q6h, monitor tele - therapeutic anticoagulation started on Xarelto, high risk, [id number] 4. Chronic heart failure with preserved EF - now euvolemic and no longer decompensated - s/p 8L infused on initial septic state - Grade 2 diastolic dysfxn noted on echo - Auto-diuresed well. Monitor I/O and give diuretics as needed 5. NKHHS with pseudohyponatremia in setting of baseline NIDDM2 - resolved with intermittent doses of insulin. Sugars now controlled - Initially came in in the 800s without any anion gap on admission, acidotic and with serum ketones - Likely 2/2 acutely septic state and poorly-controlled sugars at baseline with a1c 10 - Adjust insulin as needed and continue ISS coverage 6. Iron-deficiency & chronic anemia - anemia w/u noted. Started on supplementation - No overt bleed. H&H stable 7. Acute metabolic encephalopathy - reportedly confused on admission. Ammonia nml. Likely 2/2 acutely ill state and sepsis. Back to baseline A&Ox3 mentation since extubated DVT ppx: xarelto & mechanical DISPO: downgrade to PCU, monitor on tele, Pending clinical improvement, PT/OT. VS,Fishbone, I+O VS, Fishbone, I+O Laboratory Tests 10/18/19 04:49 Vital Signs Date Time Temp Pulse Resp B/P (MAP) Pulse Ox O2 Delivery O2 Flow Rate FiO2 10/18/19 09:00 94 Room Air 10/18/19 08:00 97.7 80 18 133/63 (86) 10/18/19 07:00 2.0 10/17/19 09:45 35 I&O- Last 24 Hours up to 6 AM 10/18/19 06:00 Intake Total 2774 ml Output Total 3185 ml Balance -411 ml GME ATTESTATION GME ATTESTATION My faculty preceptor for this patient encounter was physically present during the encounter and was fully available. All aspects of the patient interview, examination, medical decision making process, and medical care plan development were reviewed and approved by the faculty preceptor. The faculty preceptor is aware and concurs with the plan as stated in the body of this note and will attest to such by his/her cosignature. ATTENDING NOTE I, Debbie Cooper, have independently examined this patient and performed my own physical exam, as well as reviewed the documentation and edited where necessary. I have discussed in detail with the resident / student the findings and plan of treatment as documented by the resident / student and edited their note. I agree with their findings and treatment plan and have edited their documentation. I will continue to follow the patient during this hospital stay. LAURENCE SHERWOOD DO Oct 18, 2019 11:17 DEBBIE COOPER MD Oct 18, 2019 14:21
[2019-10-18] MEDS: FERROUS SULFATE 325MG TAB PO SCH (12:24)
[2019-10-18] MEDS ORDERED: RIVAROXABAN 20 MG TAB (XARELTO) PO SCH (18:00)
[2019-10-18] MEDS ORDERED: HumaLOG INSULIN (NovoLOG) PER UNIT SC SCH (21:00)
[2019-10-19] VITALS (11 sets, daily range): BP systolic 120–153; BP diastolic 61–86; O2SAT 94–96
[2019-10-19] MEDS: ALBUTEROL SULFATE 2.5 MG/0.5 ML INH NEB SOLN NEB SCH ×3 (04:14→11:57)
[2019-10-19 05:02] LABS: HEMATOCRIT 32.9 % (42.0-52.0); HEMOGLOBIN 10.4 g/dl (13.5-17.5); MEAN CORPUSCULAR HEMOGLOBIN 26.1 pg (27.0-33.0); MEAN CORPUSCULAR HGB CONC 31.6 g/dl (32.0-36.5); MEAN CORPUSCULAR VOLUME 82.7 fl (80.0-96.0); PLATELET COUNT, AUTOMATED 483 10^3/uL (150-450); RED BLOOD COUNT 3.98 10^6/uL (4.30-6.10); WHITE BLOOD COUNT 9.9 10^3/uL (4.0-10.0)
[2019-10-19] MEDS: METOPROLOL TART 25 MG TABLET PO SCH ×2 (05:05→11:55)
[2019-10-19 05:25] LABS: BLOOD UREA NITROGEN 11 MG/DL (7-18); C REACTIVE PROTEIN QUANTITATIV 2.67 MG/DL (0.00-0.30); CALCIUM LEVEL 7.7 MG/DL (8.5-10.1); CARBON DIOXIDE LEVEL 27 MEQ/L (21-32); CHLORIDE LEVEL 108 MEQ/L (98-107); CREATININE FOR GFR 0.51 MG/DL (0.70-1.30); GLOMERULAR FILTRATION RATE > 60.0 (>56); GLUCOSE, FASTING 98 MG/DL (70-100); MAGNESIUM LEVEL 1.8 MG/DL (1.8-2.4); PHOSPHORUS LEVEL 2.5 MG/DL (2.5-4.9); SODIUM LEVEL 140 MEQ/L (136-145)
[2019-10-19] MEDS: HumaLOG INSULIN (NovoLOG) PER UNIT SC SCH ×2 (07:25→11:54)
--- NOTE | 2019-10-19 07:29 | REP ---
Clinical: Prior intubation. Respiratory distress. Comparison: 10/18/2019. Findings: Diffuse left-sided alveolar and interstitial infiltrates are similar to prior examination. The right hemithorax is relatively stable. The mediastinum and cardiac silhouette are normal. Skeletal structures are intact. Impression: No significant change from prior examination with continued primarily left-sided alveolar and interstitial opacities. Electronically Signed by Gomez Pleitez MD 10/19/2019 07:21 A
[2019-10-19] MEDS: DOCUSATE SODIUM 100 MG CAP PO SCH (09:09)
[2019-10-19] MEDS: LEVEMIR (INSULIN DETEMIR) 1 UNITS/0.01ML SC SCH (09:09)
[2019-10-19] MEDS: FERROUS SULFATE 325MG TAB PO SCH (09:09)
[2019-10-19] MEDS: AUGMENTIN 875 MG TAB PO SCH (09:09)
[2019-10-19] MEDS ORDERED: FERR325T18 PO (12:08)
[2019-10-19] MEDS ORDERED: ALB2.5NEB NEB (12:08)
[2019-10-19] MEDS ORDERED: INSUDET SC (12:08)
[2019-10-19] MEDS ORDERED: AMOX875T2 PO (12:08)
[2019-10-19] MEDS ORDERED: METO1TAB87 PO (12:08)
[2019-10-19] MEDS ORDERED: XARE20TA PO (12:08)
--- NOTE | 2019-10-19 19:32 | DS.PDOC ---
Discharge Summary General Date of Admission Oct 11, 2019 at 02:41 Date of Discharge 10/19/2019 Attending Physician: DAVID CONTE MD Specialist/Consultants Involve: Marianna SU MD Discharge Summary PROCEDURES PERFORMED DURING STAY: 2D echo, mechanical ventilation 10/10-10/16 DISCHARGE DIAGNOSES: Acute hypoxic respiratory failure / ventilator-dependent respiratory failure 2/2 severe sepsis 2/2 left upper lobe Strep pneumonia Severe sepsis 2/2 Strep Pneumo bacteremia 2/2 strep pneumonia PNA Multiorgan failure 2/2 sepsis Acute metabolic encephalopathy 2/2 sepsis Intermittent bouts of A. fib in RVR Chronic heart failure with preserved EF grade 2 diastolic dysfxn NKHHS with pseudohyponatremia in setting of baseline uncontrolled NIDDM2 Iron-deficiency & chronic anemia HISTORY OF PRESENT ILLNESS: 59-year-old male brought in on 10/10 by son for alte red mental status/hallucinations, productive cough, rhinorrhea, and short of breath for 1 week. No reported sick contacts, travel, or changes in medications. He reportedly had no other complaints prior to admission. Per the son, patient also had decreased by mouth intake for the past few days. On admission, found to be septic with a left upper lobe consolidation noted on imaging. HOSPITAL COURSE: Pt was admitted, started on broad abx & IVF per sepsis pr otocol. Pulm/Crit consulted for intubation within hours of admission due to pt being tachypnic, diaphoretic, tachycardic, and desatting on 2L NC. Concern for possible COVID19, testing ultimately returned negative, as well as negative resp panel. Pt had transaminitis and ROSITA that resolved from admission with abx & septic treatment. Blood cultures initially positive for Strep Pneumo, as well as resp atypical testing & sputum also the same. Abx were narrowed to treat this, with repeat blood cultures negative and repeat imaging showing improving infiltrate. Pt was also started on insulin drip on admission for hyperglycemia in 800s, without any anion gap on admission, acidotic and with serum ketones. His A1c was found to be 10 and pt ultimately was bridged off drip & started on short & long-acting insulin. Pt had intermittent bouts of A fib/flutter on tele & EKG as well, which was discussed with Cardio who deemed it to his septic state and recommended continuing septic treatment. Pt responded well to intermittent doses of IV Lopressor, but ultimately was started on PO regimen & anticoagulation with Xarelto nearing discharge. Echo & cardiac markers unremarkable. Pt was ultimately extubated on 10/16 and did well on room air, but complained of feeling weak after extubation. Tolerated po in take well, good urinary o/p since Beyer removed, and worked with PT & OT and was recommended for acute rehab. Was medically stable & cleared for discharge to acute rehab. DISCHARGE MEDICATIONS: Please see below. ALLERGIES: Please see below. PHYSICAL EXAMINATION ON DISCHARGE: VITAL SIGNS: Please see below. General exam: sitting in chair comfortably, A&Ox3, NAD HEENT: NCAT, injected conjunctiva, PERRL, MMM Cardiac: RRR, normal S1 & S2 Respiratory: good air exchange, CTAB, no accessory muscle use Abdomen: soft, NT, ND, +bowel sounds Extremity: 2+ radial pulses, trace b/l LE edema Neuro: follows commands & converses appropriately LABORATORY DATA: Please see below. IMAGING: * 10/10/[address]: No acute intracranial process. No intracranial hemorrhage. * 10/10/2019 CTA: 1. Near complete consolidation of the left upper lobe and lingula with infiltrates about the periphery of the dense consolidation consistent with lobar pneumonia. 2. Minimal hiatal hernia with trace retention of fluid in the hernia and distal esophagus which may reflect poor peristaltic clearance or possibly reflux. 3. Fatty infiltration of the liver. 4. Otherwise negative CTA chest. No central pulmonary embolism is identified. * 10/11/2019 renal ultrasound: Negative renal sonogram. * 10/12/2019 2-D echo:1. Study is of very limited technical quality. 2. Normal left ventricular (LV) size with mild left ventricular hypertrophy (LVH) and preserved LV systolic function. Likely grade 2 diastolic dysfunction. 3. No hemodynamically significant valvular disease. 4. Elevated central venous pressure and at least mild pulmonary hypertension. * 10/14/2019 CXR: Improved aeration left upper lobe infiltrate. * 10/19/2019 CXR: No significant change from prior examination with continued primarily left-sided alveolar and interstitial opacities. PROGNOSIS: good ACTIVITY: As tolerated. DIET: 2g sodium, 2L fluid restriction DISPOSITION: to ARU DISCHARGE INSTRUCTIONS: 1. Follow-up with PCP within a week, Cardio 2-3 weeks 2. Return to ER for emergency DISCHARGE CONDITION: Stable. TIME SPENT ON DISCHARGE: Greater than 35 minutes. Vital Signs/I&Os Vital Signs Date Time Temp Pulse Resp B/P (MAP) Pulse Ox O2 Delivery O2 Flow Rate FiO2 10/19/19 14:00 98.2 125 18 153/86 (108) 96 Room Air 10/18/19 07:00 2.0 10/17/19 09:45 35 I&O- Last 24 Hours up to 6 AM 10/19/19 06:00 Intake Total 2100 ml Output Total 3140 ml Balance -1040 ml Laboratory Data Labs 24H Laboratory Tests 2 10/18/19 20:03: Bedside Glucose (Misc Panel) 237H 10/19/19 04:52: Nucleated Red Blood Cells % (auto) 0.2H, Anion Gap 5L, Glomerular Filtration Rate > 60.0, Calcium Level 7.7L, Phosphorus Level 2.5, Magnesium Level 1.8, C- Reactive Protein, Quantitative 2.67H 10/19/19 11:34: Bedside Glucose (Misc Panel) 191H CBC/BMP Laboratory Tests 10/19/19 04:52 FSBS Laboratory Tests Test 10/18/19 20:03 10/19/19 11:34 Range/Units Bedside Glucose (Misc Panel) 237 191 70-105 MG/DL Microbiology Microbiology 10/15/19 Blood Culture - Preliminary, Resulted No Growth after 72 hours. All specime... 10/15/19 Blood Culture - Preliminary, Resulted No Growth after 72 hours. All specime... 10/12/19 Blood Culture - Final, Complete NO GROWTH AFTER 5 DAYS 10/12/19 Blood Culture - Final, Complete NO GROWTH AFTER 5 DAYS 10/11/19 Respiratory Panel (PCR) - Final, Complete 10/11/19 Gram Stain - Final, Complete 10/11/19 Sputum Culture - Final, Complete Streptococcus Pneumoniae 10/11/19 Respiratory Virus Panel (PCR) ([facility]) - Final, Complete 10/11/19 Blood Culture - Final, Complete Streptococcus Pneumoniae 10/11/19 Blood Culture - Final, Complete Streptococcus Pneumoniae 10/11/19 Coronavirus COVID-19 PCR ([facility]) - Final, Complete Discharge Medications Scheduled Albuterol Sulfate (Ventolin Hfa) 18 Gm Hfa.aer.ad, 2 PUFF INH RQID Amoxicillin/Potassium Clav (Amox-Clav 875-125 mg Tablet) 1 Each Tablet, 875 MG PO BID Amoxicillin/Potassium Clav (Amox-Clav 875-125 mg Tablet) 1 Each Tablet, 875 MG PO BID Atorvastatin Calcium (Atorvastatin Calcium) 40 Mg Tablet, 1 TAB PO DAILY Ferrous Sulfate (Ferrous Sulfate) 325 Mg Tablet, 325 MG PO DAILY Ferrous Sulfate (Ferrous Sulfate) 325 Mg Tablet, 325 MG PO DAILY Glimepiride (Glimepiride) 4 Mg Tablet, 4 MG PO DAILY, (Reported) Glimepiride (Amaryl) 2 Mg Tablet, 4 MG PO DAILY@0730 Lisinopril (Lisinopril) 10 Mg Tablet, 1 TAB PO DAILY Metformin HCl (Metformin HCl) 500 Mg Tablet, 1 TAB PO BID Metoprolol Tartrate (Metoprolol Tartrate) 25 Mg Tablet, 25 MG PO Q6H Metoprolol Tartrate (Metoprolol Tartrate) 25 Mg Tablet, 25 MG PO Q6H Rivaroxaban (Xarelto) 20 Mg Tablet, 20 MG PO DAILY@18 Rivaroxaban (Xarelto) 20 Mg Tablet, 20 MG PO DAILY@1800 Trazodone HCl (Trazodone HCl) 50 Mg Tablet, 50 MG PO QHS [Zinc Oxide/Petrolatum,White] 1 DOSE/113 GM PASTE, 0 DOSE TOP TID apply 3 times a day to wound on gluteal cleft Allergies Coded Allergies: No Known Allergies (Unverified , 10/10/19) GME ATTESTATION GME ATTESTATION My faculty preceptor for this patient encounter was physically present during the encounter and was fully available. All aspects of the patient interview, examination, medical decision making process, and medical care plan development were reviewed and approved by the faculty preceptor. The faculty preceptor is aware and concurs with the plan as stated in the body of this note and will attest to such by his/her cosignature. LAURENCE SHERWOOD DO Oct 19, 2019 19:32
== END 2019-10-19 14:55 | DRG 720 ==
LOC: M ED 23:37 → M ED INP 10-11 02:41 → ENRESERVDT 10-11 02:53 → ENRESERVTM 10-11 02:53 → M ICU 10-11 03:31 → M RR INP 10-16 15:14 → M MS5PR 10-19 10:30
PROVIDERS: ADMIT Internal Medicine; ATTEND Internal Medicine
PROC: 5A1955Z Respiratory Ventilation, Greater than 96 Consecutive Hours (ICD-10-PCS; principal; 2019-10-11)
PROC: 0BH17EZ Insertion of Endotracheal Airway into Trachea, Via Natural or Artificial Opening (ICD-10-PCS; 2019-10-11)
DX: A40.3 Sepsis due to Streptococcus pneumoniae (principal); J96.01 Acute respiratory failure with hypoxia; E11.00 Type 2 diabetes mellitus with hyperosmolarity without nonketotic hyperglycemic-hyperosmolar coma (NKHHC); G93.41 Metabolic encephalopathy; I50.33 Acute on chronic diastolic (congestive) heart failure; J13 Pneumonia due to Streptococcus pneumoniae; N17.9 Acute kidney failure, unspecified; R65.20 Severe sepsis without septic shock; E87.2 Acidosis; E11.65 Type 2 diabetes mellitus with hyperglycemia; E87.1 Hypo-osmolality and hyponatremia; E83.39 Other disorders of phosphorus metabolism; I48.91 Unspecified atrial fibrillation; Z68.41 Body mass index [BMI] 40.0-44.9, adult; K76.0 Fatty (change of) liver, not elsewhere classified; D50.9 Iron deficiency anemia, unspecified; F17.200 Nicotine dependence, unspecified, uncomplicated; R44.1 Visual hallucinations; R74.0 Nonspecific elevation of levels of transaminase and lactic acid dehydrogenase [LDH]; E66.9 Obesity, unspecified; K21.9 Gastro-esophageal reflux disease without esophagitis; K44.9 Diaphragmatic hernia without obstruction or gangrene; I83.90 Asymptomatic varicose veins of unspecified lower extremity; I78.1 Nevus, non-neoplastic; F19.10 Other psychoactive substance abuse, uncomplicated; Z79.84 Long term (current) use of oral hypoglycemic drugs; Z79.899 Other long term (current) drug therapy; Z11.59 Encounter for screening for other viral diseases

== ENCOUNTER 2019-10-19 14:37 | Inpatient (IN) | payer OTHER ==
[~2019-10-19] VITALS: Ht 177.8 cm; Wt 124.3 kg
[~2019-10-19 14:37] MED LIST changes: +ALB2.5NEB NEB; +AMOX875T2 PO; +FERR325T18 PO; +INSUDET SC; +METO1TAB87 PO; +XARE20TA PO
[2019-10-19 15:00] VITALS: BP 126/75
[2019-10-19] MEDS ORDERED: DEXTROSE 50% 50 ML SYRINGE IV PRN ×2 (17:45→18:45)
[2019-10-19] MEDS ORDERED: GLUCOSE 4 GM CHEW TABLET PO PRN ×2 (17:45→18:45)
[2019-10-19] MEDS ORDERED: BISACODYL 10 MG SUPP PR PRN (17:45)
[2019-10-19] MEDS ORDERED: GLUCAGON FOR INJ 1 MG VIAL (J1610) SC PRN ×2 (17:45→18:45)
[2019-10-19] MEDS: ALBUTEROL 90 MCG/ACT 8GM HFA INHALER INH SCH ×2 (17:55→20:00)
[2019-10-19] MEDS: PANTOPRAZOLE 40MG TAB (PROTONIX) PO SCH (18:20)
[2019-10-19] MEDS: guaiFENesin 200 MG TAB PO SCH ×2 (18:21→20:08)
[2019-10-19] MEDS: RIVAROXABAN 20 MG TAB (XARELTO) PO SCH (18:21)
[2019-10-19] MEDS: METOPROLOL TART 25 MG TABLET PO SCH ×2 (18:22→23:41)
[2019-10-19] MEDS: REMEDY PHYTOPLEX Z-GUARD PASTE 113GM TUBE (FROM STOREROOM PRODUCT) TOP SCH ×2 (18:22→20:17)
[2019-10-19] MEDS: SENNA 8.6 MG TAB (SENOKOT) PO SCH (20:08)
[2019-10-19] MEDS: AUGMENTIN 875 MG TAB PO SCH (20:08)
[2019-10-19] MEDS: DOCUSATE SODIUM 100 MG CAP PO SCH (20:08)
[2019-10-19] MEDS: SODIUM CHLORIDE NASAL 0.65% SPRAY BTL (OCEAN) SCH (20:12)
[2019-10-19] MEDS: LEVEMIR (INSULIN DETEMIR) 1 UNITS/0.01ML SC SCH (20:12)
[2019-10-19] MEDS: HumaLOG INSULIN (NovoLOG) PER UNIT SC SCH (20:19)
[2019-10-19] MEDS ORDERED: traZODone 25MG PER 1/2 TABLET PO SCH (21:00)
[2019-10-19 22:00] VITALS: BP 154/93
[2019-10-20] MEDS: METOPROLOL TART 25 MG TABLET PO SCH ×3 (05:53→17:45)
[2019-10-20 06:00] VITALS: BP 139/80
[2019-10-20 07:03] LABS: BASO # 0.1 10^3/uL (0.0-0.2); BASO % 0.6 % (0.0-1.0); EOS # 0.3 10^3/uL (0.0-0.5); HEMATOCRIT 37.9 % (42.0-52.0); HEMOGLOBIN 11.6 g/dl (13.5-17.5); LYMPH # 2.5 10^3/uL (1.5-5.0); LYMPH % 25.7 % (24.0-44.0); MEAN CORPUSCULAR HEMOGLOBIN 26.1 pg (27.0-33.0); MEAN CORPUSCULAR HGB CONC 30.6 g/dl (32.0-36.5); MEAN CORPUSCULAR VOLUME 85.2 fl (80.0-96.0); MONO # 0.8 10^3/uL (0.0-0.8); MONO % 8.1 % (0.0-5.0); NEUTROPHILS # 5.9 10^3/uL (1.5-8.5); PLATELET COUNT, AUTOMATED 508 10^3/uL (150-450); RED BLOOD COUNT 4.45 10^6/uL (4.30-6.10); WHITE BLOOD COUNT 9.7 10^3/uL (4.0-10.0)
[2019-10-20 07:50] LABS: ALBUMIN 1.8 GM/DL (3.2-5.2); ALT/SGPT 63 U/L (12-78); BILIRUBIN,TOTAL 0.5 MG/DL (0.2-1.0); BLOOD UREA NITROGEN 11 MG/DL (7-18); CALCIUM LEVEL 8.2 MG/DL (8.5-10.1); CARBON DIOXIDE LEVEL 29 MEQ/L (21-32); CHLORIDE LEVEL 105 MEQ/L (98-107); GLOMERULAR FILTRATION RATE > 60.0 (>56); GLUCOSE, FASTING 109 MG/DL (70-100); SODIUM LEVEL 138 MEQ/L (136-145); TOTAL PROTEIN 6.8 GM/DL (6.4-8.2)
[2019-10-20] MEDS: LEVEMIR (INSULIN DETEMIR) 1 UNITS/0.01ML SC SCH ×2 (08:17→20:31)
[2019-10-20] MEDS: PANTOPRAZOLE 40MG TAB (PROTONIX) PO SCH (08:18)
[2019-10-20] MEDS: DOCUSATE SODIUM 100 MG CAP PO SCH ×2 (08:18→20:30)
[2019-10-20] MEDS: guaiFENesin 200 MG TAB PO SCH ×3 (08:18→20:30)
[2019-10-20] MEDS: FERROUS SULFATE 325MG TAB PO SCH (08:18)
[2019-10-20] MEDS: AUGMENTIN 875 MG TAB PO SCH ×2 (08:18→20:31)
[2019-10-20] MEDS: HumaLOG INSULIN (NovoLOG) PER UNIT SC SCH ×4 (08:20→20:39)
[2019-10-20] MEDS: REMEDY PHYTOPLEX Z-GUARD PASTE 113GM TUBE (FROM STOREROOM PRODUCT) TOP SCH ×3 (08:21→20:32)
[2019-10-20] MEDS: SODIUM CHLORIDE NASAL 0.65% SPRAY BTL (OCEAN) SCH ×3 (08:21→20:31)
[2019-10-20] MEDS: ALBUTEROL 90 MCG/ACT 8GM HFA INHALER INH SCH ×4 (08:24→20:00)
--- NOTE | 2019-10-20 11:01 | HPEPDOC ---
Charge Lpn Note DATE OF ADMISSION: 10-19-19 DATE OF SERVICE: 10-19-19 TIME OF ADMISSION: Please refer to physician's admission order. 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 CTA chest showed no pulmonary emboli, but also revealed Near complete consolidation of the left upper lobe and lingula with infiltrates about the periphery of the dense consolidation consistent with lobar pneumonia. He was intubated and transferred to ICU. Patient was also treated for non ketotic hyperosmolar hyperglycemia with pseudohyponatremia. He was started on IV antibiotics, ultimately tested negative for Covid, but was found to have strep pneumo positive blood cultures x2 and in his sputum. He developed multi-organ failure and noted to have Afib on telemetry for which he was started on Xarelto. He was successfully extubated on 10-17-19, evaluated by therapy and found to have significant weakness with difficulty with mobility and ADLs well below his baseline and deemed medically appropriate for discharge to ARU on 10-19-19. On initial visit patient reports generalized weakness and numbness in his left hand which he reports is new and since being admitted to ICU. REVIEW OF SYSTEMS: The following is a completed review of systems and has been reviewed. Review of systems otherwise unremarkable. PAIN: Patient self reports no pain EYES: No recent vision changes EARS, NOSE, & THROAT: No throat pain, or dysphagia, or rhinorrhea CARDIOVASCULAR: Denies chest pain or palpitations PULMONARY: Denies shortness of breath at rest, +cough and dyspnea on exertion GASTROINTESTINAL: Denies constipation/diarrhea GENITOURINARY: denies dysuria MUSCULOSKELETAL: generalized weakness NEUROLOGICAL:+paraesthesias HEMATOLOGICAL: denies easy bruising SKIN: sacral ulcer PSYCHIATRIC: Unremarkable All other review of systems found to be negative. PAST MEDICAL HISTORY: as per HPI PAST SURGICAL HISTORY: Hernia repair ALLERGIES: Please see below. MEDICATIONS: Please see below. FAMILY HISTORY: DM, cancer, Cardiac SOCIAL HISTORY: +smoker, no etoh/illicit drugs DIET: consistent carb, low sodium fluid restrict PHYSICAL EXAMINATION: VITAL SIGNS: Please see below. GENERAL: Pleasant and cooperative. No acute distress. obese HEENT: PERRL. Extraocular movements intact. Clear conjunctiva CARDIOVASCULAR: Regular rate and rhythm. No murmurs, rubs, or gallops LUNGS: No wheezes. +scattered rhonchi ABDOMEN: Soft, nontender, nondistended. Positive bowel sounds. Normal active bowel sounds NEUROLOGICAL: Alert and oriented times three. Cranial nerves II through XII grossly intact. Sensation intact to light touch bilat LE and RUE, however diminished to light touch in D2-5 on the left (-) Babinski EXTREMITIES: 5-\5 strength bilateral upper extremities. 3+/5 bilat hip flexors, 4/5 knee extensors, ankle DF, EHL and PF SKIN: right gluteal cleft ulcer (unstageable) LABORATORY DATA: Please see below. IMAGING:Imaging documentation personally reviewed by record FUNCTIONAL STATUS: Premorbid: Independent with all activities of daily life as well as mobility On Admission: Min assist for bed mobility, functional transfers, ambulation, dressing, toileting GOALS: Mod-I community distances with RW, functional transfers, stairs, dressing, toileting, bathing, medical optimization, assess for DMEs ASSESSMENT:59-year-old M with past medical history of DM who presents status post sepsis secondary to Community acquired pneumonia requiring intubation in setting of respiratory failure with metabolic encephalopathy PLAN: 1. Rehab- PT/OT advance gait and ADL training, strengthen/stretch/maintain ROM all 4 limbs, teach energy conservation techniques 2. Neuro: patient with new weakness and LUE paresthesias following ICU admission due to sepsis with acute respiratory failure and multi-organ failure, suspect patient's symptoms may be due to mild case of critical illness polyneuropathy -patient with recent acute metabolic encephalopathy due to sepsis and NKHHS, c/u to monitor and manage 3. Cardiac: recent ECHO showing grade 2 diastolic dysfunction- fluid restrict, daily weights, will consider diuretic -does not appear fluid overloaded at this time -newly diagnosed Afib- c/u Xarelto and metoprolol -medicine consulted to assist in overall management 4. Resp: s/p IV antibiotics for strep pneumo with bacteremia, c/u Augmentin, Guaifenesin, and Albuterol treatments -encourage incentive spirometry and and monitor for worsening infection 5. Endo: pmh DM s/p NKHHS, c/u Insulin and will consider adding back oral agents 6. DVT ppx: on XArelto, c/u TEDs 7. GI ppx: protonix 8. SKin: barrier cream to sacral ulcer, weight shifts in bed 9. Pain: Tylneol prn 10. 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 Dispo: TBD POST ADMISSION PHYSICIAN EVALUATION: Medical and functional status: Description of medical status, medical assessment: As above. Rehabilitation diagnosis and current and prior cold morbid medical conditions as above. Risk of complications and plans to mitigate them as above. Description of functional status current status is as above. Prior status as above. Status compared to preadmission: There are no clinically significant differences between the patient's current status and the information described on the preadmission screening document. Treatment plan anticipated: Treatment plan is as described above. Required disciplines including physical therapy, occupational therapy, others as noted above Intensity of services: 3 hours a day, 6 days a week. Special considerations: There are no specific special or safety considerations that would likely preclude immediate implementation of an intensive rehabilitation program or subsequently influence the plan of care. ATTESTATION: Considering all the information above, it is my best judgment that this patient requires intensive rehabilitation therapy as described above and an inpatient hospital environment due to the complexity of nursing, medical, and rehabilitation needs required by the patient. Furthermore, this patient can reasonably be expected to participate in an benefit from an inpatient rehabilitation stay with an interdisciplinary team approach to the delivery of rehabilitation care under the direction and supervision of rehabilitation physician. PROGNOSIS: good ESTIMATED LENGTH OF STAY:14-18 days. PROJECTED DISCHARGE DESTINATION: Home with family support and any durable medical equipment required to increase functional safety and mobility. TIME SPENT COUNSELING AND COORDINATING INITIAL CARE: Greater than 70 minutes. Vital Signs Vital Sign - Last 24 Hours 10/19/19 10/19/19 10/19/19 10/19/19 15:00 18:22 22:00 23:41 Temp 96.4 96.7 Pulse 108 98 82 82 Resp 20 18 B/P (MAP) 126/75 (92) 131/65 154/93 (113) 171/82 Pulse Ox 92 93 O2 Delivery Room Air Room Air 10/20/19 10/20/19 05:53 06:00 Temp 96.3 Pulse 74 77 Resp 15 B/P (MAP) 139/80 139/80 (99) Pulse Ox 100 O2 Delivery Room Air Laboratory Data CBC/BMP Laboratory Tests 10/20/19 06:40 Labs 24H Laboratory Tests 2 10/19/19 16:36: Bedside Glucose (Misc Panel) 165H 10/19/19 19:30: Bedside Glucose (Misc Panel) 132H 10/20/19 05:52: Bedside Glucose (Misc Panel) 88 10/20/19 06:40: Immature Granulocyte % (Auto) 1.6, Neutrophils (%) (Auto) 61.0, Lymphocytes (%) (Auto) 25.7, Monocytes (%) (Auto) 8.1H, Eosinophils (%) (Auto) 3.0, Basophils (%) (Auto) 0.6, Neutrophils # (Auto) 5.9, Lymphocytes # (Auto) 2.5, Monocytes # (Auto) 0.8, Eosinophils # (Auto) 0.3, Basophils # (Auto) 0.1, Nucleated Red Blood Cells % (auto) 0.0, Anion Gap 4L, Glomerular Filtration Rate > 60.0, Ca lcium Level 8.2L, Total Bilirubin 0.5, Aspartate Amino Transf (AST/SGOT) 46H, Alanine Aminotransferase (ALT/SGPT) 63, Alkaline Phosphatase 105, Total Protein 6.8, Albumin 1.8L, Albumin/Globulin Ratio 0.36L FSBS Laboratory Tests Test 10/19/19 16:36 10/19/19 19:30 10/20/19 05:52 Range/Units Bedside Glucose (Misc Panel) 165 132 88 70-105 MG/DL Home Medications Scheduled Albuterol Sulfate (Albuterol Sulfate) 2.5 Mg/0.5 Ml Vial.neb, 2.5 MG NEB RQ4H Amoxicillin/Potassium Clav (Amox-Clav 875-125 mg Tablet) 1 Each Tablet, 875 MG PO BID Ferrous Sulfate (Ferrous Sulfate) 325 Mg Tablet, 325 MG PO DAILY Glimepiride (Glimepiride) 4 Mg Tablet, 4 MG PO DAILY, (Reported) Insulin Detemir (Levemir) 100 Unit/1 Ml Vial, 20 UNITS SC BID Metformin HCl (Metformin HCl) 1,000 Mg Tablet, 1,000 MG PO BID, (Reported) Metoprolol Tartrate (Metoprolol Tartrate) 25 Mg Tablet, 25 MG PO Q6H Rivaroxaban (Xarelto) 20 Mg Tablet, 20 MG PO DAILY@18 Saxagliptin HCl (Onglyza) 5 Mg Tablet, 5 MG PO DAILY, (Reported) Scheduled PRN Naproxen (Naproxen) 500 Mg Tablet, 500 MG PO DAILY PRN for PAIN, (Reported) Tramadol HCl (Tramadol HCl) 50 Mg Tablet, 50 MG PO DAILY PRN for PAIN, (Reported) Allergies Coded Allergies: No Known Allergies (Unverified , 10/10/19) A-FIB/CHADSVASC A-FIB History Current/History of A-Fib/PAF?: Yes Current PO Anticoag Therapy: Yes MAXWELL MATTHEW MD Oct 20, 2019 11:01
[2019-10-20 14:00] VITALS: BP 132/62
--- NOTE | 2019-10-20 17:08 | IPNPDOC ---
Text Note Date of Service The patient was seen on 10/20/19. NOTE Subjective: No any acute events overnight. Patient denies fever, chills, nausea, vomiting, chest pain, palpitations diarrhea or dysuria Objective: General exam: A&Ox3, NAD HEENT: NCAT, PERRLA Cardiac: RRR, normal S1 & S2 Respiratory: good air exchange, CTAB, no accessory muscle use Abdomen: soft, NT, ND, +bowel sounds : live in place with clear urine Extremity: 2+ radial pulses, trace b/l LE edema Neuro: Nonfocal Assessment and plan Patient is 59 male with past medical history of type 2 diabetes was transferred to acute rehabilitation after prolonged hospitalization. Patient was hospitalized with acute respiratory failure secondary to left lung pneumonia, patient has been treated with antibiotic therapy, initially in the ICU settings due to intubation. Also patient developed new onset of atrial fibrillation, he is currently on xarelto. Atrial fibrillation Heart rate is under control Recent echo showed: Normal LVEF, grade 2 diastolic dysfunction, no significant valvular disease, elevated CVP with mild pulmonary hypertension Continue xarelto, continue cardioprotective medications Diastolic CHF Not in acute exacerbation I's and O's Cardiac diet Atorvastatin 40 mg Diabetes type 2 Diabetes diet I will start lisinopril 5 mg Insulin sliding scale, detemir twice a day Iron deficiency anemia Stool for occult blood Continue iron supplementation We'll check B12 and folate level Deconditioning Continue treatment in ARU VS,Darrynbone, I+O VS, Fishbone, I+O Laboratory Tests 10/20/19 06:40 Vital Signs Date Time Temp Pulse Resp B/P (MAP) Pulse Ox O2 Delivery O2 Flow Rate FiO2 10/20/19 14:00 96.6 86 20 132/62 (85) 94 Room Air I&O- Last 24 Hours up to 6 AM 10/20/19 06:00 Intake Total 660 ml Output Total 2400 ml Balance -1740 ml DIANDRA DOUGLAS DO Oct 20, 2019 17:08
[2019-10-20] MEDS: RIVAROXABAN 20 MG TAB (XARELTO) PO SCH (17:45)
[2019-10-20 18:35] LABS: FOLATE 10.9 NG/ML (>5.4)
[2019-10-20 20:00] VITALS: BP 130/68
[2019-10-20] MEDS: traZODone 50 MG TAB PO SCH (20:30)
[2019-10-20] MEDS: SENNA 8.6 MG TAB (SENOKOT) PO SCH (20:31)
[2019-10-21] MEDS: METOPROLOL TART 25 MG TABLET PO SCH ×5 (00:59→23:44)
[2019-10-21 06:00] VITALS: BP 142/73
[2019-10-21] MEDS: ALBUTEROL 90 MCG/ACT 8GM HFA INHALER INH SCH ×4 (07:24→19:31)
[2019-10-21] MEDS: guaiFENesin 200 MG TAB PO SCH ×3 (08:51→21:17)
[2019-10-21] MEDS: LEVEMIR (INSULIN DETEMIR) 1 UNITS/0.01ML SC SCH ×2 (08:51→21:19)
[2019-10-21] MEDS: DOCUSATE SODIUM 100 MG CAP PO SCH ×2 (08:51→21:17)
[2019-10-21] MEDS: ATORVASTATIN 20 MG TAB PO SCH (08:51)
[2019-10-21] MEDS: HumaLOG INSULIN (NovoLOG) PER UNIT SC SCH ×4 (08:51→21:19)
[2019-10-21] MEDS: AUGMENTIN 875 MG TAB PO SCH ×2 (08:51→21:17)
[2019-10-21] MEDS: FERROUS SULFATE 325MG TAB PO SCH (08:51)
[2019-10-21] MEDS: PANTOPRAZOLE 40MG TAB (PROTONIX) PO SCH (08:52)
[2019-10-21] MEDS: lisinopriL 5 MG TAB PO SCH (08:54)
[2019-10-21] MEDS: SODIUM CHLORIDE NASAL 0.65% SPRAY BTL (OCEAN) SCH ×3 (08:54→21:17)
[2019-10-21] MEDS: REMEDY PHYTOPLEX Z-GUARD PASTE 113GM TUBE (FROM STOREROOM PRODUCT) TOP SCH ×3 (08:54→21:20)
--- NOTE | 2019-10-21 12:03 | IPNPDOC ---
PM&R Progress Note DATE OF SERVICE: Oct 20, 2019 Manager Council Progress Note Subjective: Patient reporting he feels well today, he is upset that he developed a wound on his buttock, but was pleased to hear it appeared to be healing. He had difficulty sleeping. REVIEW OF SYSTEMS: The following is a completed review of systems and has been reviewed. Review of systems otherwise unremarkable. PAIN: Patient self reports no pain EYES: No recent vision changes EARS, NOSE, & THROAT: No throat pain, or dysphagia, or rhinorrhea CARDIOVASCULAR: Denies chest pain or palpitations PULMONARY: Denies shortness of breath at rest, +cough and dyspnea on exertion GASTROINTESTINAL: Denies constipation/diarrhea GENITOURINARY: denies dysuria MUSCULOSKELETAL: generalized weakness NEUROLOGICAL:+paraesthesias HEMATOLOGICAL: denies easy bruising SKIN: sacral ulcer PSYCHIATRIC: Unremarkable All other review of systems found to be negative. PHYSICAL EXAMINATION: VITAL SIGNS: Please see below. GENERAL: Pleasant and cooperative. No acute distress. obese HEENT: PERRL. Extraocular movements intact. Clear conjunctiva CARDIOVASCULAR: Regular rate and rhythm. No murmurs, rubs, or gallops LUNGS: No wheezes. +scattered rhonchi ABDOMEN: Soft, nontender, nondistended. Positive bowel sounds. Normal active bowel sounds NEUROLOGICAL: Alert and oriented times three. Cranial nerves II through XII grossly intact. Sensation intact to light touch bilat LE and RUE, however diminished to light touch in D2-5 on the left (-) Babinski EXTREMITIES: 5-\5 strength bilateral upper extremities. 3+/5 bilat hip flexors, 4/5 knee extensors, ankle DF, EHL and PF SKIN: right gluteal cleft ulcer (unstageable) LABORATORY DATA: Please see below. ASSESSMENT:59-year-old M with past medical history of DM who presents status post sepsis secondary to Community acquired pneumonia requiring intubation in setting of respiratory failure with metabolic encephalopathy PLAN: 1. Rehab- PT/OT advance gait and ADL training, strengthen/stretch/maintain ROM all 4 limbs, teach energy conservation techniques 2. Neuro: patient with new weakness and LUE paresthesias following ICU admission due to sepsis with acute respiratory failure and multi-organ failure, suspect patient's symptoms may be due to mild case of critical illness polyneuropathy -patient with recent acute metabolic encephalopathy due to sepsis and [facility], c/u to monitor and manage 3. Cardiac: recent ECHO showing grade 2 diastolic dysfunction- fluid restrict, daily weights, will consider diuretic -does not appear fluid overloaded at this time -newly diagnosed Afib- c/u Xarelto and metoprolol -medicine consulted to assist in overall management 4. Resp: s/p IV antibiotics for strep pneumo with bacteremia, c/u Augmentin, Guaifenesin, and Albuterol treatments -encourage incentive spirometry and and monitor for worsening infection 5. Endo: pmh DM s/p NKHHS, c/u Insulin and will consider adding back oral agents 6. DVT ppx: on XArelto, c/u TEDs 7. GI ppx: protonix 8. SKin: barrier cream to sacral ulcer, weight shifts in bed 9. Pain: Tylneol prn 10. Psych: will increase trazodone to 50mg qHS 11. Dispo: TBD Allergies Coded Allergies: No Known Allergies (Unverified , 10/10/19) Vital Signs Vital Signs Date Time Temp Pulse Resp B/P (MAP) Pulse Ox O2 Delivery O2 Flow Rate FiO2 10/21/19 08:54 129/65 10/21/19 06:31 72 10/21/19 06:00 96.9 17 95 Room Air Laboratory Data Labs 24H Laboratory Tests 2 10/20/19 12:05: Bedside Glucose (Misc Panel) 194H 10/20/19 16:45: Bedside Glucose (Misc Panel) 183H 10/20/19 17:49: Vitamin B12 Level 1568H, Folate 10.9 10/20/19 20:25: Bedside Glucose (Misc Panel) 191H 10/21/19 05:14: Bedside Glucose (Misc Panel) 108H 10/21/19 07:41: Bedside Glucose (Misc Panel) 159H Current Medications Current Medications Current Medications Medications (Trade) Dose Ordered Sig/Gunjan Route PRN Reason Start Time Stop Time Status Last Admin Dose Admin Acetaminophen (Tylenol Tab) 650 mg Q4HP PRN PO fever/MILD PAIN (PS 1-4) 10/19/19 17:45 Albuterol Sulfate (Proventil, Ventolin Hfa) 2 puff RQID INH 10/19/19 16:00 10/21/19 07:24 Amoxicillin/ Clavulanate Potassium (Augmentin) 875 mg BID PO 10/19/19 21:00 4/20/20 22:00 10/21/19 08:51 Atorvastatin Calcium (Lipitor) 40 mg DAILY PO 10/21/19 09:00 10/21/19 08:51 Bisacodyl (Dulcolax Suppository) 10 mg DAILYPRN PRN [place] CONSTIPATION 10/19/19 17:45 Dextrose (Dextrose 50%) 25 ml ASDIRECTED PRN IV SEE LABEL COMMENTS 10/19/19 17:45 10/19/19 18:38 DC Dextrose (Dextrose 50%) 25 ml ASDIRECTED PRN IV SEE LABEL COMMENTS 10/19/19 18:45 Docusate Sodium (Colace) 100 mg BID PO 10/19/19 21:00 10/21/19 08:51 Ferrous Sulfate (Ferrous Sulfate) 325 mg DAILY PO 10/20/19 09:00 10/21/19 08:51 Glucagon (Glucagon) 1 mg ASDIRECTED PRN SC SEE LABEL COMMENTS 10/19/19 17:45 10/19/19 18:38 DC Glucagon (Glucagon) 1 mg ASDIRECTED PRN SC SEE LABEL COMMENTS 10/19/19 18:45 Glucose (Glucose) 16 GM ASDIRECTED PRN PO SEE LABEL COMMENTS 10/19/19 17:45 10/19/19 18:38 DC Glucose (Glucose) 16 GM ASDIRECTED PRN PO SEE LABEL COMMENTS 10/19/19 18:45 Guaifenesin (Robitussin Tab) 400 mg TID PO 10/19/19 16:00 10/21/19 08:51 Insulin Detemir (Levemir Insulin) 20 units BID SC 10/20/19 21:00 10/21/19 08:51 Insulin Detemir (Levemir Insulin) 25 units BID SC 10/19/19 21:00 10/20/19 10:24 DC 10/20/19 08:17 Insulin Human Lispro (HumaLOG INSULIN) SEE PROTOCOL TABLE AC SC 10/20/19 07:30 10/21/19 08:51 Insulin Human Lispro (HumaLOG INSULIN) SEE PROTOCOL TABLE QHS SC 10/19/19 21:00 Lisinopril (Prinivil) 5 mg DAILY PO 10/21/19 09:00 10/21/19 08:54 Metoprolol Tartrate (Lopressor) 25 mg Q6H PO 10/19/19 18:00 4/16/20 06:31 Pantoprazole Sodium (Protonix) 40 mg DAILY PO 10/19/19 09:00 10/21/19 08:52 Rivaroxaban (Xarelto) 20 mg DAILY@1800 PO 10/19/19 18:00 10/20/19 17:45 Senna (Senokot) 1 tab QHS PO 10/19/19 21:00 10/20/19 20:31 Sodium Chloride ([place] Nasal [place]) 2 spray TID NA 10/19/19 21:00 10/21/19 08:54 Trazodone HCl (Desyrel) 25 mg QHS PO 10/19/19 21:00 10/20/19 13:34 DC 10/19/19 20:11 Trazodone HCl (Desyrel) 50 mg QHS PO 10/20/19 21:00 10/20/19 20:30 MAXWELL MATTHEW MD Oct 21, 2019 12:03
[2019-10-21 14:00] VITALS: BP 113/64
[2019-10-21] MEDS: RIVAROXABAN 20 MG TAB (XARELTO) PO SCH (17:10)
[2019-10-21 20:00] VITALS: BP 125/61
[2019-10-21] MEDS: SENNA 8.6 MG TAB (SENOKOT) PO SCH (21:17)
[2019-10-21] MEDS: traZODone 50 MG TAB PO SCH (21:17)
[2019-10-22] MEDS: METOPROLOL TART 25 MG TABLET PO SCH ×3 (05:51→17:17)
[2019-10-22 06:00] VITALS: BP 146/86
[2019-10-22 07:08] LABS: BASO # 0.1 10^3/uL (0.0-0.2); BASO % 0.6 % (0.0-1.0); EOS # 0.2 10^3/uL (0.0-0.5); EOS % 2.5 % (0.0-3.0); HEMATOCRIT 37.5 % (42.0-52.0); HEMOGLOBIN 11.8 g/dl (13.5-17.5); LYMPH % 22.6 % (24.0-44.0); MEAN CORPUSCULAR HEMOGLOBIN 26.5 pg (27.0-33.0); MEAN CORPUSCULAR HGB CONC 31.5 g/dl (32.0-36.5); MEAN CORPUSCULAR VOLUME 84.1 fl (80.0-96.0); MONO # 0.8 10^3/uL (0.0-0.8); MONO % 9.1 % (0.0-5.0); NEUTROPHILS # 5.7 10^3/uL (1.5-8.5); NEUTROPHILS % 64.4 % (36.0-66.0); PLATELET COUNT, AUTOMATED 543 10^3/uL (150-450); RED BLOOD COUNT 4.46 10^6/uL (4.30-6.10); WHITE BLOOD COUNT 8.8 10^3/uL (4.0-10.0)
[2019-10-22 07:38] LABS: BLOOD UREA NITROGEN 12 MG/DL (7-18); CALCIUM LEVEL 8.4 MG/DL (8.5-10.1); CARBON DIOXIDE LEVEL 28 MEQ/L (21-32); CHLORIDE LEVEL 105 MEQ/L (98-107); CREATININE FOR GFR 0.59 MG/DL (0.70-1.30); GLOMERULAR FILTRATION RATE > 60.0 (>56); GLUCOSE, FASTING 120 MG/DL (70-100); POTASSIUM SERUM 4.6 MEQ/L (3.5-5.1); SODIUM LEVEL 137 MEQ/L (136-145)
[2019-10-22] MEDS: ALBUTEROL 90 MCG/ACT 8GM HFA INHALER INH SCH ×4 (08:10→20:00)
[2019-10-22] MEDS: DOCUSATE SODIUM 100 MG CAP PO SCH ×2 (09:00→20:30)
[2019-10-22] MEDS: guaiFENesin 200 MG TAB PO SCH ×3 (09:11→20:29)
[2019-10-22] MEDS: HumaLOG INSULIN (NovoLOG) PER UNIT SC SCH ×4 (09:11→20:27)
[2019-10-22] MEDS: LEVEMIR (INSULIN DETEMIR) 1 UNITS/0.01ML SC SCH ×2 (09:11→20:30)
[2019-10-22] MEDS: FERROUS SULFATE 325MG TAB PO SCH (09:11)
[2019-10-22] MEDS: PANTOPRAZOLE 40MG TAB (PROTONIX) PO SCH (09:11)
[2019-10-22] MEDS: AUGMENTIN 875 MG TAB PO SCH ×2 (09:12→20:27)
[2019-10-22] MEDS: ATORVASTATIN 20 MG TAB PO SCH (09:12)
[2019-10-22] MEDS: lisinopriL 5 MG TAB PO SCH (09:12)
[2019-10-22] MEDS: SODIUM CHLORIDE NASAL 0.65% SPRAY BTL (OCEAN) SCH ×3 (09:15→20:31)
[2019-10-22] MEDS: REMEDY PHYTOPLEX Z-GUARD PASTE 113GM TUBE (FROM STOREROOM PRODUCT) TOP SCH ×3 (09:22→20:31)
[2019-10-22 11:30] VITALS: BP 146/86
--- NOTE | 2019-10-22 13:54 | IPNPDOC ---
PM&R Progress Note DATE OF SERVICE: Oct 21, 2019 Eye Technician Progress Note Subjective: Patient reporting he slept better last night and is enjoying therapy. His left hand continues to feel numb. REVIEW OF SYSTEMS: The following is a completed review of systems and has been reviewed. Review of systems otherwise unremarkable. PAIN: Patient self reports no pain EYES: No recent vision changes EARS, NOSE, & THROAT: No throat pain, or dysphagia, or rhinorrhea CARDIOVASCULAR: Denies chest pain or palpitations PULMONARY: Denies shortness of breath at rest, +cough and dyspnea on exertion (improving) GASTROINTESTINAL: Denies constipation/diarrhea GENITOURINARY: denies dysuria MUSCULOSKELETAL: generalized weakness NEUROLOGICAL:+paraesthesias HEMATOLOGICAL: denies easy bruising SKIN: sacral ulcer PSYCHIATRIC: Unremarkable All other review of systems found to be negative. PHYSICAL EXAMINATION: VITAL SIGNS: Please see below. GENERAL: Pleasant and cooperative. No acute distress. obese HEENT: PERRL. Extraocular movements intact. Clear conjunctiva CARDIOVASCULAR: Regular rate and rhythm. No murmurs, rubs, or gallops LUNGS: No wheezes. +scattered rhonchi ABDOMEN: Soft, nontender, nondistended. Positive bowel sounds. Normal active bowel sounds NEUROLOGICAL: Alert and oriented times three. Cranial nerves II through XII grossly intact. Sensation intact to light touch bilat LE and RUE, however diminished to light touch in D2-5 on the left (-) Babinski EXTREMITIES: 5-\5 strength bilateral upper extremities. 3+/5 bilat hip flexors, 4/5 knee extensors, ankle DF, EHL and PF SKIN: right gluteal cleft ulcer (unstageable) LABORATORY DATA: Please see below. ASSESSMENT:59-year-old M with past medical history of DM who presents status post sepsis secondary to Community acquired pneumonia requiring intubation in setting of respiratory failure with metabolic encephalopathy PLAN: 1. Rehab- PT/OT advance gait and ADL training, strengthen/stretch/maintain ROM all 4 limbs, teach energy conservation techniques 2. Neuro: patient with new weakness and LUE paresthesias following ICU admission due to sepsis with acute respiratory failure and multi-organ failure, suspect patient's symptoms may be due to mild case of critical illness polyneuropathy -patient with recent acute metabolic encephalopathy due to sepsis and [facility], c/u to monitor and manage 3. Cardiac: recent ECHO showing grade 2 diastolic dysfunction- fluid restrict, daily weights, will consider diuretic -does not appear fluid overloaded at this time -newly diagnosed Afib- c/u Xarelto and metoprolol -medicine consulted to assist in overall management 4. Resp: s/p IV antibiotics for strep pneumo with bacteremia, c/u Augmentin, Guaifenesin, and Albuterol treatments -encourage incentive spirometry and and monitor for worsening infection 5. Endo: pmh DM s/p NKHHS, c/u Insulin and will consider adding back oral agents 6. DVT ppx: on XArelto, c/u TEDs 7. GI ppx: protonix 8. SKin: barrier cream to sacral ulcer, weight shifts in bed 9. Pain: Tylneol prn 10. Psych: c/u trazodone 50mg qHS 11. Dispo: TBD Allergies Coded Allergies: No Known Allergies (Unverified , 10/10/19) Vital Signs Vital Signs Date Time Temp Pulse Resp B/P (MAP) Pulse Ox O2 Delivery O2 Flow Rate FiO2 10/22/19 12:52 82 130/80 10/22/19 11:30 98.2 18 94 Room Air Laboratory Data CBC/BMP Laboratory Tests 10/22/19 06:41 Labs 24H Laboratory Tests 2 10/21/19 16:32: Bedside Glucose (Misc Panel) 149H 10/21/19 19:47: Bedside Glucose (Misc Panel) 255H 10/22/19 06:26: Bedside Glucose (Misc Panel) 118H 10/22/19 06:41: Immature Granulocyte % (Auto) 0.8, Neutrophils (%) (Auto) 64.4, Lymphocytes (%) (Auto) 22.6L, Monocytes (%) (Auto) 9.1H, Eosinophils (%) (Auto) 2.5, Basophils (%) (Auto) 0.6, Neutrophils # (Auto) 5.7, Lymphocytes # (Auto) 2.0, Monocytes # (Auto) 0.8, Eosinophils # (Auto) 0.2, Basophils # (Auto) 0.1, Nucleated Red Blood Cells % (auto) 0.0, Anion Gap 4L, Glomerular Filtration Rate > 60.0, Calcium Level 8.4L 10/22/19 11:44: Bedside Glucose (Misc Panel) 146H Current Medications Current Medications Current Medications Medications (Trade) Dose Ordered Sig/Gunjan Route PRN Reason Start Time Stop Time Status Last Admin Dose Admin Acetaminophen (Tylenol Tab) 650 mg Q4HP PRN PO fever/MILD PAIN (PS 1-4) 10/19/19 17:45 Albuterol Sulfate (Proventil, Ventolin Hfa) 2 puff RQID INH 10/19/19 16:00 10/22/19 12:27 Amoxicillin/ Clavulanate Potassium (Augmentin) 875 mg BID PO 10/19/19 21:00 10/25/19 22:00 10/22/19 09:12 Atorvastatin Calcium (Lipitor) 40 mg DAILY PO 10/21/19 09:00 10/22/19 09:12 Bisacodyl (Dulcolax Suppository) 10 mg DAILYPRN PRN [place] CONSTIPATION 10/19/19 17:45 Dextrose (Dextrose 50%) 25 ml ASDIRECTED PRN IV SEE LABEL COMMENTS 10/19/19 17:45 10/19/19 18:38 DC Dextrose (Dextrose 50%) 25 ml ASDIRECTED PRN IV SEE LABEL COMMENTS 10/19/19 18:45 Docusate Sodium (Colace) 100 mg BID PO 10/19/19 21:00 10/21/19 21:17 Ferrous Sulfate (Ferrous Sulfate) 325 mg DAILY PO 10/20/19 09:00 10/22/19 09:11 Glucagon (Glucagon) 1 mg ASDIRECTED PRN SC SEE LABEL COMMENTS 10/19/19 17:45 10/19/19 18:38 DC Glucagon (Glucagon) 1 mg ASDIRECTED PRN SC SEE LABEL COMMENTS 10/19/19 18:45 Glucose (Glucose) 16 GM ASDIRECTED PRN PO SEE LABEL COMMENTS 10/19/19 17:45 10/19/19 18:38 DC Glucose (Glucose) 16 GM ASDIRECTED PRN PO SEE LABEL COMMENTS 10/19/19 18:45 Guaifenesin (Robitussin Tab) 400 mg TID PO 10/19/19 16:00 10/22/19 09:11 Insulin Detemir (Levemir Insulin) 20 units BID SC 10/20/19 21:00 10/22/19 09:11 Insulin Detemir (Levemir Insulin) 25 units BID SC 10/19/19 21:00 10/20/19 10:24 DC 10/20/19 08:17 Insulin Human Lispro (HumaLOG INSULIN) SEE PROTOCOL TABLE AC SC 10/20/19 07:30 10/22/19 12:51 Insulin Human Lispro (HumaLOG INSULIN) SEE PROTOCOL TABLE QHS SC 10/19/19 21:00 10/21/19 21:19 Lisinopril (Prinivil) 5 mg DAILY PO 10/21/19 09:00 10/22/19 09:12 Metoprolol Tartrate (Lopressor) 25 mg Q6H PO 10/19/19 18:00 10/22/19 12:52 Pantoprazole Sodium (Protonix) 40 mg DAILY PO 10/19/19 09:00 10/22/19 09:11 Rivaroxaban (Xarelto) 20 mg DAILY@1800 PO 10/19/19 18:00 10/21/19 17:10 Senna (Senokot) 1 tab QHS PO 10/19/19 21:00 10/21/19 21:17 Sodium Chloride ([place] Nasal [place]) 2 spray TID NA 10/19/19 21:00 10/22/19 09:15 Trazodone HCl (Desyrel) 25 mg QHS PO 10/19/19 21:00 10/20/19 13:34 DC 10/19/19 20:11 Trazodone HCl (Desyrel) 50 mg QHS PO 10/20/19 21:00 10/21/19 21:17 MAXWELL MATTHEW MD Oct 22, 2019 13:54
--- NOTE | 2019-10-22 13:58 | IPNPDOC ---
PM&R Progress Note DATE OF SERVICE: Oct 22, 2019 Child Day Care Teacher Progress Note Subjective: Patient seen in OT working on laundry tasks, able to walk with a cane. He said he climbed stairs today and that it was harder than he expected. REVIEW OF SYSTEMS: The following is a completed review of systems and has been reviewed. Review of systems otherwise unremarkable. PAIN: Patient self reports no pain EYES: No recent vision changes EARS, NOSE, & THROAT: No throat pain, or dysphagia, or rhinorrhea CARDIOVASCULAR: Denies chest pain or palpitations PULMONARY: Denies shortness of breath at rest, +cough and dyspnea on exertion (improving) GASTROINTESTINAL: Denies constipation/diarrhea GENITOURINARY: denies dysuria MUSCULOSKELETAL: generalized weakness NEUROLOGICAL:+paraesthesias HEMATOLOGICAL: denies easy bruising SKIN: sacral ulcer PSYCHIATRIC: Unremarkable All other review of systems found to be negative. PHYSICAL EXAMINATION: VITAL SIGNS: Please see below. GENERAL: Pleasant and cooperative. No acute distress. obese HEENT: PERRL. Extraocular movements intact. Clear conjunctiva CARDIOVASCULAR: Regular rate and rhythm. No murmurs, rubs, or gallops LUNGS: No wheezes. +scattered rhonchi ABDOMEN: Soft, nontender, nondistended. Positive bowel sounds. Normal active bowel sounds NEUROLOGICAL: Alert and oriented times three. Cranial nerves II through XII grossly intact. Sensation intact to light touch bilat LE and RUE, however dimini shed to light touch in D2-5 on the left (-) Babinski EXTREMITIES: 5-\5 strength bilateral upper extremities. 3+/5 bilat hip flexors, 4/5 knee extensors, ankle DF, EHL and PF SKIN: right gluteal cleft ulcer (unstageable) LABORATORY DATA: Please see below. ASSESSMENT:59-year-old M with past medical history of DM who presents status post sepsis secondary to Community acquired pneumonia requiring intubation in setting of respiratory failure with metabolic encephalopathy PLAN: 1. Rehab- PT/OT advance gait and ADL training, strengthen/stretch/maintain ROM all 4 limbs, teach energy conservation techniques 2. Neuro: patient with new weakness and LUE paresthesias following ICU admission due to sepsis with acute respiratory failure and multi-organ failure, suspect patient's symptoms may be due to mild case of critical illness polyneuropathy -patient with recent acute metabolic encephalopathy due to sepsis and [facility], c/u to monitor and manage 3. Cardiac: recent ECHO showing grade 2 diastolic dysfunction- fluid restrict, daily weights, will consider diuretic -does not appear fluid overloaded at this time -newly diagnosed Afib- c/u Xarelto and metoprolol -medicine consulted to assist in overall management 4. Resp: s/p IV antibiotics for strep pneumo with bacteremia, c/u Augmentin, Guaifenesin, and Albuterol treatments -encourage incentive spirometry and and monitor for worsening infection 5. Endo: pmh DM s/p NKHHS, will add back metformin at half the dose and Glime piride 6. DVT ppx: on XArelto, c/u TEDs 7. GI ppx: protonix 8. SKin: barrier cream to sacral ulcer, weight shifts in bed 9. Pain: Tylneol prn 10. Psych: c/u trazodone 50mg qHS 11. Dispo: 10-26-19 to home, progressing towards goals Allergies Coded Allergies: No Known Allergies (Unverified , 10/10/19) Vital Signs Vital Signs Date Time Temp Pulse Resp B/P (MAP) Pulse Ox O2 Delivery O2 Flow Rate FiO2 10/22/19 12:52 82 130/80 10/22/19 11:30 98.2 18 94 Room Air Laboratory Data CBC/BMP Laboratory Tests 10/22/19 06:41 Labs 24H Laboratory Tests 2 10/21/19 16:32: Bedside Glucose (Misc Panel) 149H 10/21/19 19:47: Bedside Glucose (Misc Panel) 255H 10/22/19 06:26: Bedside Glucose (Misc Panel) 118H 10/22/19 06:41: Immature Granulocyte % (Auto) 0.8, Neutrophils (%) (Auto) 64.4, Lymphocytes (%) (Auto) 22.6L, Monocytes (%) (Auto) 9.1H, Eosinophils (%) (Auto) 2.5, Basophils (%) (Auto) 0.6, Neutrophils # (Auto) 5.7, Lymphocytes # (Auto) 2.0, Monocytes # (Auto) 0.8, Eosinophils # (Auto) 0.2, Basophils # (Auto) 0.1, Nucleated Red Blood Cells % (auto) 0.0, Anion Gap 4L, Glomerular Filtration Rate > 60.0, Calcium Level 8.4L 10/22/19 11:44: Bedside Glucose (Misc Panel) 146H Current Medications Current Medications Current Medications Medications (Trade) Dose Ordered Sig/Gunjan Route PRN Reason Start Time Stop Time Status Last Admin Dose Admin Acetaminophen (Tylenol Tab) 650 mg Q4HP PRN PO fever/MILD PAIN (PS 1-4) 10/19/19 17:45 Albuterol Sulfate (Proventil, Ventolin Hfa) 2 puff RQID INH 10/19/19 16:00 10/22/19 12:27 Amoxicillin/ Clavulanate Potassium (Augmentin) 875 mg BID PO 10/19/19 21:00 10/25/19 22:00 10/22/19 09:12 Atorvastatin Calcium (Lipitor) 40 mg DAILY PO 10/21/19 09:00 10/22/19 09:12 Bisacodyl (Dulcolax Suppository) 10 mg DAILYPRN PRN [place] CONSTIPATION 10/19/19 17:45 Dextrose (Dextrose 50%) 25 ml ASDIRECTED PRN IV SEE LABEL COMMENTS 10/19/19 17:45 10/19/19 18:38 DC Dextrose (Dextrose 50%) 25 ml ASDIRECTED PRN IV SEE LABEL COMMENTS 10/19/19 18:45 Docusate Sodium (Colace) 100 mg BID PO 10/19/19 21:00 10/21/19 21:17 Ferrous Sulfate (Ferrous Sulfate) 325 mg DAILY PO 10/20/19 09:00 10/22/19 09:11 Glucagon (Glucagon) 1 mg ASDIRECTED PRN SC SEE LABEL COMMENTS 10/19/19 17:45 10/19/19 18:38 DC Glucagon (Glucagon) 1 mg ASDIRECTED PRN SC SEE LABEL COMMENTS 10/19/19 18:45 Glucose (Glucose) 16 GM ASDIRECTED PRN PO SEE LABEL COMMENTS 10/19/19 17:45 10/19/19 18:38 DC Glucose (Glucose) 16 GM ASDIRECTED PRN PO SEE LABEL COMMENTS 10/19/19 18:45 Guaifenesin (Robitussin Tab) 400 mg TID PO 10/19/19 16:00 10/22/19 09:11 Insulin Detemir (Levemir Insulin) 20 units BID SC 10/20/19 21:00 10/22/19 09:11 Insulin Detemir (Levemir Insulin) 25 units BID SC 10/19/19 21:00 10/20/19 10:24 DC 10/20/19 08:17 Insulin Human Lispro (HumaLOG INSULIN) SEE PROTOCOL TABLE AC SC 10/20/19 07:30 10/22/19 12:51 Insulin Human Lispro (HumaLOG INSULIN) SEE PROTOCOL TABLE QHS SC 10/19/19 21:00 10/21/19 21:19 Lisinopril (Prinivil) 5 mg DAILY PO 10/21/19 09:00 10/22/19 09:12 Metoprolol Tartrate (Lopressor) 25 mg Q6H PO 10/19/19 18:00 10/22/19 12:52 Pantoprazole Sodium (Protonix) 40 mg DAILY PO 10/19/19 09:00 10/22/19 09:11 Rivaroxaban (Xarelto) 20 mg DAILY@1800 PO 10/19/19 18:00 10/21/19 17:10 Senna (Senokot) 1 tab QHS PO 10/19/19 21:00 10/21/19 21:17 Sodium Chloride ([place] Nasal [place]) 2 spray TID NA 10/19/19 21:00 10/22/19 09:15 Trazodone HCl (Desyrel) 25 mg QHS PO 10/19/19 21:00 10/20/19 13:34 DC 10/19/19 20:11 Trazodone HCl (Desyrel) 50 mg QHS PO 10/20/19 21:00 10/21/19 21:17 MAXWELL MATTHEW MD Oct 22, 2019 13:58
[2019-10-22 14:00] VITALS: BP 122/80
[2019-10-22] MEDS: RIVAROXABAN 20 MG TAB (XARELTO) PO SCH (17:16)
[2019-10-22 20:00] VITALS: BP 134/67
[2019-10-22] MEDS: ACETAMINOPHEN TAB 650MG DOSE (2X325MG) PO PRN (20:28)
[2019-10-22] MEDS: traZODone 50 MG TAB PO SCH (20:29)
[2019-10-22] MEDS: SENNA 8.6 MG TAB (SENOKOT) PO SCH (20:30)
[2019-10-23] MEDS: METOPROLOL TART 25 MG TABLET PO SCH ×4 (01:03→17:15)
[2019-10-23 06:00] VITALS: BP 141/93
[2019-10-23] MEDS: ALBUTEROL 90 MCG/ACT 8GM HFA INHALER INH SCH ×4 (07:34→20:01)
[2019-10-23] MEDS ORDERED: metFORMIN (GLUCOPHAGE) 1000 MG TABLET PO SCH (08:00)
[2019-10-23] MEDS: HumaLOG INSULIN (NovoLOG) PER UNIT SC SCH ×4 (08:46→21:00)
[2019-10-23] MEDS: ATORVASTATIN 20 MG TAB PO SCH (08:47)
[2019-10-23] MEDS: AUGMENTIN 875 MG TAB PO SCH ×2 (08:47→21:19)
[2019-10-23] MEDS: guaiFENesin 200 MG TAB PO SCH ×3 (08:47→21:19)
[2019-10-23] MEDS: metFORMIN (GLUCOPHAGE) 1000 MG TABLET PO SCH ×2 (08:47→17:16)
[2019-10-23] MEDS: FERROUS SULFATE 325MG TAB PO SCH (08:47)
[2019-10-23] MEDS: PANTOPRAZOLE 40MG TAB (PROTONIX) PO SCH (08:48)
[2019-10-23] MEDS: SODIUM CHLORIDE NASAL 0.65% SPRAY BTL (OCEAN) SCH ×3 (08:48→21:20)
[2019-10-23] MEDS: lisinopriL 5 MG TAB PO SCH (08:48)
[2019-10-23] MEDS: DOCUSATE SODIUM 100 MG CAP PO SCH ×2 (08:48→21:19)
[2019-10-23] MEDS: REMEDY PHYTOPLEX Z-GUARD PASTE 113GM TUBE (FROM STOREROOM PRODUCT) TOP SCH ×3 (08:49→21:20)
[2019-10-23 15:00] VITALS: BP 127/71
[2019-10-23] MEDS: RIVAROXABAN 20 MG TAB (XARELTO) PO SCH (17:16)
[2019-10-23 20:00] VITALS: BP 112/58
[2019-10-23] MEDS: traZODone 50 MG TAB PO SCH (21:18)
[2019-10-23] MEDS: ACETAMINOPHEN TAB 650MG DOSE (2X325MG) PO PRN (21:19)
[2019-10-23] MEDS: SENNA 8.6 MG TAB (SENOKOT) PO SCH (21:19)
[2019-10-24] MEDS: METOPROLOL TART 25 MG TABLET PO SCH ×5 (00:03→23:30)
[2019-10-24] MEDS: ACETAMINOPHEN TAB 650MG DOSE (2X325MG) PO PRN ×4 (05:54→23:31)
[2019-10-24 06:00] VITALS: BP 121/63
[2019-10-24] MEDS: ALBUTEROL 90 MCG/ACT 8GM HFA INHALER INH SCH ×4 (07:20→20:05)
[2019-10-24] MEDS: metFORMIN (GLUCOPHAGE) 1000 MG TABLET PO SCH ×2 (08:10→17:21)
[2019-10-24] MEDS: FERROUS SULFATE 325MG TAB PO SCH (08:10)
[2019-10-24] MEDS: ATORVASTATIN 20 MG TAB PO SCH (08:10)
[2019-10-24] MEDS: HumaLOG INSULIN (NovoLOG) PER UNIT SC SCH ×4 (08:10→20:25)
[2019-10-24] MEDS: AUGMENTIN 875 MG TAB PO SCH ×2 (08:11→20:25)
[2019-10-24] MEDS: guaiFENesin 200 MG TAB PO SCH ×3 (08:11→20:25)
[2019-10-24] MEDS: GLIMEPIRIDE 2 MG TAB PO SCH (08:11)
[2019-10-24] MEDS: PANTOPRAZOLE 40MG TAB (PROTONIX) PO SCH (08:11)
[2019-10-24] MEDS: DOCUSATE SODIUM 100 MG CAP PO SCH ×2 (08:12→20:25)
[2019-10-24] MEDS: lisinopriL 5 MG TAB PO SCH (08:12)
[2019-10-24] MEDS: SODIUM CHLORIDE NASAL 0.65% SPRAY BTL (OCEAN) SCH ×3 (08:13→20:27)
[2019-10-24] MEDS: REMEDY PHYTOPLEX Z-GUARD PASTE 113GM TUBE (FROM STOREROOM PRODUCT) TOP SCH ×3 (08:13→20:27)
[2019-10-24 14:00] VITALS: BP 108/58
[2019-10-24] MEDS: RIVAROXABAN 20 MG TAB (XARELTO) PO SCH (17:19)
[2019-10-24 20:00] VITALS: BP 130/66
[2019-10-24] MEDS: SENNA 8.6 MG TAB (SENOKOT) PO SCH (20:25)
[2019-10-24] MEDS: traZODone 50 MG TAB PO SCH (20:25)
[2019-10-25 04:39] VITALS: BP 160/91
[2019-10-25] MEDS: ACETAMINOPHEN TAB 650MG DOSE (2X325MG) PO PRN (05:06)
[2019-10-25] MEDS: METOPROLOL TART 25 MG TABLET PO SCH ×3 (05:06→17:36)
[2019-10-25 06:27] LABS: BASO # 0.1 10^3/uL (0.0-0.2); BASO % 0.8 % (0.0-1.0); EOS # 0.1 10^3/uL (0.0-0.5); EOS % 1.4 % (0.0-3.0); HEMOGLOBIN 12.1 g/dl (13.5-17.5); LYMPH # 1.9 10^3/uL (1.5-5.0); LYMPH % 25.8 % (24.0-44.0); MEAN CORPUSCULAR HEMOGLOBIN 27.3 pg (27.0-33.0); MEAN CORPUSCULAR HGB CONC 31.8 g/dl (32.0-36.5); MEAN CORPUSCULAR VOLUME 85.6 fl (80.0-96.0); MONO # 0.9 10^3/uL (0.0-0.8); MONO % 11.7 % (0.0-5.0); NEUTROPHILS # 4.4 10^3/uL (1.5-8.5); NEUTROPHILS % 59.8 % (36.0-66.0); PLATELET COUNT, AUTOMATED 428 10^3/uL (150-450); RED BLOOD COUNT 4.44 10^6/uL (4.30-6.10); WHITE BLOOD COUNT 7.4 10^3/uL (4.0-10.0)
[2019-10-25 06:45] LABS: BLOOD UREA NITROGEN 11 MG/DL (7-18); CALCIUM LEVEL 8.6 MG/DL (8.5-10.1); CARBON DIOXIDE LEVEL 25 MEQ/L (21-32); CHLORIDE LEVEL 104 MEQ/L (98-107); CREATININE FOR GFR 0.79 MG/DL (0.70-1.30); GLOMERULAR FILTRATION RATE > 60.0 (>56); GLUCOSE, FASTING 226 MG/DL (70-100); POTASSIUM SERUM 4.6 MEQ/L (3.5-5.1); SODIUM LEVEL 136 MEQ/L (136-145)
[2019-10-25] MEDS: ALBUTEROL 90 MCG/ACT 8GM HFA INHALER INH SCH ×2 (08:00→12:20)
[2019-10-25] MEDS: REMEDY PHYTOPLEX Z-GUARD PASTE 113GM TUBE (FROM STOREROOM PRODUCT) TOP SCH ×2 (08:16→16:00)
[2019-10-25] MEDS: SODIUM CHLORIDE NASAL 0.65% SPRAY BTL (OCEAN) SCH ×2 (08:16→16:00)
[2019-10-25] MEDS: DOCUSATE SODIUM 100 MG CAP PO SCH (09:29)
[2019-10-25] MEDS: lisinopriL 5 MG TAB PO SCH (09:29)
[2019-10-25] MEDS: PANTOPRAZOLE 40MG TAB (PROTONIX) PO SCH (09:29)
[2019-10-25] MEDS: guaiFENesin 200 MG TAB PO SCH ×2 (09:29→16:08)
[2019-10-25] MEDS: AUGMENTIN 875 MG TAB PO SCH (09:30)
[2019-10-25] MEDS: ATORVASTATIN 20 MG TAB PO SCH (09:30)
[2019-10-25] MEDS: metFORMIN (GLUCOPHAGE) 1000 MG TABLET PO SCH ×2 (09:30→17:36)
[2019-10-25] MEDS: FERROUS SULFATE 325MG TAB PO SCH (09:30)
[2019-10-25] MEDS: GLIMEPIRIDE 2 MG TAB PO SCH (09:30)
[2019-10-25] MEDS: HumaLOG INSULIN (NovoLOG) PER UNIT SC SCH ×3 (09:31→17:30)
[2019-10-25] MEDS ORDERED: Zinc Oxide/Petrolatum,White TOP (10:43)
[2019-10-25] MEDS ORDERED: LISI10TA4 PO (10:43)
[2019-10-25] MEDS ORDERED: TRAZ-252 PO (10:43)
[2019-10-25] MEDS ORDERED: METF500T13 PO (10:43)
[2019-10-25] MEDS ORDERED: XARE20TA PO (10:43)
[2019-10-25] MEDS ORDERED: METO1TAB87 PO (10:43)
[2019-10-25] MEDS ORDERED: AMAR1TAB5 PO (10:43)
[2019-10-25] MEDS ORDERED: AMOX875T2 PO (10:44)
[2019-10-25] MEDS ORDERED: FERR325T18 PO (10:44)
[2019-10-25] MEDS ORDERED: ATOR40TA75 PO (10:44)
[2019-10-25] MEDS ORDERED: VENTAER INH (10:44)
[2019-10-25 14:00] VITALS: BP 150/78
[2019-10-25 17:36] VITALS: BP 149/78
[2019-10-25] MEDS: RIVAROXABAN 20 MG TAB (XARELTO) PO SCH (17:36)
--- NOTE | 2019-10-26 11:32 | PMRDS ---
DATE OF ADMISSION: 10/19/2019 DATE OF DISCHARGE: 10/25/2019 CHIEF COMPLAINT/DISCHARGE DIAGNOSIS: Generalized weakness due to critical illness, polyneuropathy. HISTORY OF PRESENT ILLNESS: 59M pmh obesity, DM, GERD presented to [facility] ED on 10-11-19 with altered mental status, difficulty breathing, with cough and was admitted for acute respiratory failure due wot community acquired pneumonia with CXR showing, Extensive lobar consolidation left upper lobe. CTA chest showed no pulmonary emboli, but also revealed Near complete consolidation of the left upper lobe and lingula with infiltrates about the periphery of the dense consolidation consistent with lobar pneumonia. He was intubated and transferred to ICU. Patient was also treated for non ketotic hyperosmolar hyperglycemia with pseudohyponatremia. He was started on IV antibiotics, ultimately tested negative for Covid, but was found to have strep pneumo positive blood cultures x2 and in his sputum. He developed multi-organ failure and noted to have Afib on telemetry for which he was started on Xarelto. He was successfully extubated on 10-17-19, evaluated by therapy and found to have significant weakness with difficulty with mobility and ADLs well below his baseline and deemed medically appropriate for discharge to ARU on 10-19-19. On initial visit patient reports generalized weakness and numbness in his left hand which he reports is new and since being admitted to ICU. PAST MEDICAL HISTORY: As per history of present illness (HPI). HOSPITAL COURSE: The patient was admitted and enrolled in a comprehensive physical therapy (PT)/occupational therapy (OT) program. He received 24-hour nursing supervision, and weekly team meetings were held discuss his progress. The patient was maintained on Xarelto for his new diagnosis of atrial fibrillation (AFib) and was on a fluid restriction and daily weights in the setting of grade 2 diastolic dysfunction. The patient finished up a course of Augmentin for his pneumonia and received breathing treatments with no worsening of respiratory symptoms and said his breathing improved dramatically. The patient arrived with an unstageable ulcer on his gluteal cleft which was treated with barrier cream, and he was instructed to followup outpatient with Dr. Donaldson, wound care doctor. He made good gains in therapy and was deemed medically and functionally stable to return home. DISCHARGE MEDICATIONS: As per instructions. FUNCTIONAL HISTORY ON DISCHARGE: The patient was modified independent for all functional transfers, able to negotiate 30 stairs, and in occupational therapy he was also modified independent for toileting, lower body dressing, and bathing. Thank you for this referral.
== END 2019-10-25 17:45 | disposition home or self-care (01) | DRG 48 ==
LOC: M PM&R 15:20
PROVIDERS: ADMIT Physical Medicine & Rehabilitation; ATTEND Physical Medicine & Rehabilitation
DX: G62.81 Critical illness polyneuropathy (principal); R53.1 Weakness; L89.150 Pressure ulcer of sacral region, unstageable; I48.91 Unspecified atrial fibrillation; F17.200 Nicotine dependence, unspecified, uncomplicated; R20.2 Paresthesia of skin; R26.89 Other abnormalities of gait and mobility; D50.9 Iron deficiency anemia, unspecified; I50.32 Chronic diastolic (congestive) heart failure; E11.9 Type 2 diabetes mellitus without complications; Z79.4 Long term (current) use of insulin; Z79.01 Long term (current) use of anticoagulants; Z79.899 Other long term (current) drug therapy

== ENCOUNTER → 2019-11-02 | Outpatient (REF) | payer OTHER ==
[~2019-11-02] MED LIST changes: +AMAR1TAB5 PO; +ATOR40TA75 PO; +LISI10TA4 PO; +METF500T13 PO; +TRAZ-252 PO; +VENTAER INH; +Zinc Oxide/Petrolatum,White TOP
[2019-11-02 14:06] LABS: HEMOGLOBIN A1c 9.2 %
[2019-11-02 18:06] LABS: ALBUMIN 3.3 GM/DL (3.2-5.2); ALT/SGPT 42 U/L (12-78); BILIRUBIN,TOTAL 0.2 MG/DL (0.2-1.0); BLOOD UREA NITROGEN 15 MG/DL (7-18); CALCIUM LEVEL 9.3 MG/DL (8.5-10.1); CARBON DIOXIDE LEVEL 28 MEQ/L (21-32); CHLORIDE LEVEL 102 MEQ/L (98-107); CREATININE FOR GFR 0.76 MG/DL (0.70-1.30); FREE T4 1.07 NG/DL (0.76-1.46); GLOMERULAR FILTRATION RATE > 60.0 (>56); GLUCOSE, FASTING 140 MG/DL (70-100); MAGNESIUM LEVEL 2.1 MG/DL (1.8-2.4); POTASSIUM SERUM 4.5 MEQ/L (3.5-5.1); SODIUM LEVEL 136 MEQ/L (136-145); TOTAL PROTEIN 7.5 GM/DL (6.4-8.2)
[2019-11-02 18:19] LABS: TOTAL 25(OH) VITAMIN D 17.7 NG/ML (30.0-100.0)
== END ==
LOC: M SFHCPLAZ 11:40
PROVIDERS: ATTEND Family Medicine
DX: D50.9 Iron deficiency anemia, unspecified (principal); E11.8 Type 2 diabetes mellitus with unspecified complications; Z12.5 Encounter for screening for malignant neoplasm of prostate

== ENCOUNTER → 2019-12-27 | Outpatient (CLI) | payer OTHER ==
[~2019-12-27] MED LIST changes: +ISOVUE-370 76% 100ML VIAL As Ordered ONE
--- NOTE | 2019-12-27 12:56 | REP ---
REASON FOR EXAM: Followup pneumonia. COMPARISON: 10/11/2019. CONTRAST: 100 mL Isovue 370. The mediastinum and pulmonary breann are unchanged. No mass or adenopathy has developed. There is no changed in the imaged upper abdomen or imaged osseous structures. Evaluation of the lung daniels shows marked improvement with near complete resolution of the abnormal left lung opacities. There is a small asymmetric density in the left lung base which has developed since the last exam. IMPRESSION: Marked improvement as described above. The new small asymmetric density seen in the left lung base is most consistent with a small amount of subsegmental atelectatic changed. Electronically Signed by Hal Rabago DO 12/27/2019 01:09 P
== END ==
LOC: M RAD 09:20
PROVIDERS: ATTEND Family Medicine
DX: J18.9 Pneumonia, unspecified organism (principal)
CPT/HCPCS: 71260; Q9967

== ENCOUNTER → 2020-01-19 | Outpatient (CLI) | payer OTHER ==
[~2020-01-19] MED LIST changes: -ISOVUE-370 76% 100ML VIAL As Ordered ONE
--- NOTE | 2020-01-19 12:46 | REPPI ---
REASON: Chronic pain There are no priors for comparison. Even with the swimmer's view, distal to C6 cannot be evaluated due to artifact on the lateral swimmer's view. The imaged vertebral bodies and disc spaces are normal. There is no evidence of foraminal narrowing. The facet joints imaged are well-aligned bilaterally. There is no evidence of limitation of flexion or extension radiographically. The dens cannot be effectively evaluated secondary to the superimposition of osseous structures and/or dentition on all views. Although this plain radiographic evaluation of the cervical spine shows no evidence of a fracture, it should be remembered that CT is much more sensitive than plain radiography of the C-spine in detecting fractures. If this examination was ordered to rule out a fracture, then CT of the cervical spine is recommended. IMPRESSION: Limited exam showing no acute abnormality as described above. Electronically Signed by Hal Rabago DO 01/19/2020 12:58 P
== END ==
LOC: M PLAIMG 10:13
PROVIDERS: ATTEND Physician Assistant Medical
DX: G62.81 Critical illness polyneuropathy (principal)

== ENCOUNTER → 2020-03-03 | Outpatient (CLI) | payer OTHER | LOC: M LABSMTC 10:31 | PROVIDERS: ATTEND Internal Medicine Cardiovascular Disease | DX: I48.3 Typical atrial flutter (principal) | CPT/HCPCS: C9803; U0003 ==

== ENCOUNTER → 2020-03-03 | Outpatient (CLI) | payer OTHER ==
[2020-03-03 14:46] LABS: BLOOD UREA NITROGEN 14 MG/DL (7-18); CALCIUM LEVEL 9.5 MG/DL (8.5-10.1); CARBON DIOXIDE LEVEL 28 MEQ/L (21-32); CHLORIDE LEVEL 107 MEQ/L (98-107); CREATININE FOR GFR 0.95 MG/DL (0.70-1.30); GLOMERULAR FILTRATION RATE > 60.0 (>56); GLUCOSE, FASTING 106 MG/DL (70-100); POTASSIUM SERUM 4.7 MEQ/L (3.5-5.1); SODIUM LEVEL 141 MEQ/L (136-145)
[2020-03-03 14:50] LABS: BASO # 0.1 10^3/uL (0.0-0.2); BASO % 0.5 % (0.0-1.0); EOS # 0.5 10^3/uL (0.0-0.5); EOS % 4.1 % (0.0-3.0); HEMATOCRIT 44.1 % (42.0-52.0); HEMOGLOBIN 14.4 g/dl (13.5-17.5); LYMPH # 3.6 10^3/uL (1.5-5.0); LYMPH % 32.4 % (24.0-44.0); MEAN CORPUSCULAR HEMOGLOBIN 28.9 pg (27.0-33.0); MEAN CORPUSCULAR HGB CONC 32.7 g/dl (32.0-36.5); MEAN CORPUSCULAR VOLUME 88.6 fl (80.0-96.0); MONO % 8.9 % (0.0-5.0); NEUTROPHILS # 5.9 10^3/uL (1.5-8.5); NEUTROPHILS % 53.6 % (36.0-66.0); PLATELET COUNT, AUTOMATED 278 10^3/uL (150-450); RED BLOOD COUNT 4.98 10^6/uL (4.30-6.10)
== END ==
LOC: M PLALAB 10:44
PROVIDERS: ATTEND Internal Medicine Cardiovascular Disease
DX: I48.3 Typical atrial flutter (principal)

== ENCOUNTER → 2020-04-17 | Outpatient (CLI) | payer OTHER ==
--- NOTE | 2020-04-17 10:09 | REPVR ---
PROCEDURE INFORMATION: Exam: MR Cervical Spine Without Contrast Exam date and time: 04/17/2020 7:53 AM Age: 59 years old Clinical indication: Radicular pain (radiculopathy); Cervical region; Additional info: Lt upper ext radiculopathy TECHNIQUE: Imaging protocol: Multiplanar magnetic resonance images of the cervical spine without contrast. COMPARISON: CR SPINE CERVICAL COMPLETE 01/19/2020 10:25 AM FINDINGS: Vertebrae: There is mild reversal of the normal cervical lordosis. There is no fracture or listhesis. Spinal cord: Normal signal. No cord compression. C2-C3: No significant disc disease. No significant spinal stenosis. C3-C4: There is a shallow disc osteophyte complex asymmetric to the right. There is mild facet hypertrophy. There is moderate to severe right neural foraminal narrowing. C4-C5: There is a diffuse disc osteophyte complex. There is mild to moderate facet hypertrophy. There is mild left neural foraminal narrowing. C5-C6: There is a shallow disc osteophyte complex. There is moderate right and severe left facet hypertrophy. There is moderate right and severe left neural foraminal narrowing. C6-C7: There is a shallow disc osteophyte complex. There is moderate facet hypertrophy. The spinal canal and neural foramina are patent. C7-T1: No significant disc disease. No significant spinal stenosis. Vertebral arteries: Expected flow voids in the vertebral arteries. Soft tissues: Unremarkable. IMPRESSION: Degenerative disc disease and spondylosis. Changes contribute to multilevel moderate to severe neural foraminal narrowing. Electronically signed by: Clare Limon On 04/17/2020 10:09:12 AM
== END ==
LOC: M RAD 07:50
PROVIDERS: ATTEND Family Medicine
DX: M54.12 Radiculopathy, cervical region (principal); M25.78 Osteophyte, vertebrae

== ENCOUNTER → 2020-04-20 | Outpatient (REF) | payer OTHER ==
[2020-04-20 14:08] LABS: CHOLESTEROL RISK RATIO 2.245 (<5); FREE T4 0.95 NG/DL (0.76-1.46); MAGNESIUM LEVEL 1.9 MG/DL (1.8-2.4); THYROID STIMULATING HORMONE 2.74 uIU/ML (0.358-3.740)
[2020-04-20 14:12] LABS: BASO # 0.1 10^3/uL (0.0-0.2); BASO % 0.8 % (0.0-1.0); EOS # 0.4 10^3/uL (0.0-0.5); EOS % 3.9 % (0.0-3.0); HEMATOCRIT 47.2 % (42.0-52.0); HEMOGLOBIN 15.5 g/dl (13.5-17.5); LYMPH % 28.6 % (24.0-44.0); MEAN CORPUSCULAR HEMOGLOBIN 29.5 pg (27.0-33.0); MEAN CORPUSCULAR HGB CONC 32.8 g/dl (32.0-36.5); MEAN CORPUSCULAR VOLUME 89.7 fl (80.0-96.0); MONO # 0.9 10^3/uL (0.0-0.8); MONO % 9.1 % (0.0-5.0); NEUTROPHILS # 5.9 10^3/uL (1.5-8.5); PLATELET COUNT, AUTOMATED 222 10^3/uL (150-450); RED BLOOD COUNT 5.26 10^6/uL (4.30-6.10); WHITE BLOOD COUNT 10.3 10^3/uL (4.0-10.0)
[2020-04-20 14:37] LABS: HEMOGLOBIN A1c 8.1 %
== END ==
LOC: M SFHCPLAZ 09:34
PROVIDERS: ATTEND Family Medicine
DX: I10 Essential (primary) hypertension (principal); E11.8 Type 2 diabetes mellitus with unspecified complications; E78.2 Mixed hyperlipidemia; I50.32 Chronic diastolic (congestive) heart failure; Z12.5 Encounter for screening for malignant neoplasm of prostate; E55.9 Vitamin D deficiency, unspecified

== ENCOUNTER → 2020-07-28 | Outpatient (REF) | payer OTHER ==
[~2020-07-28] MED LIST changes: +LISI10TA22 PO; -LISI10TA4 PO
[2020-07-28 12:54] LABS: BASO # 0.1 10^3/uL (0.0-0.2); BASO % 0.8 % (0.0-1.0); EOS # 0.5 10^3/uL (0.0-0.5); EOS % 4.9 % (0.0-3.0); HEMATOCRIT 45.2 % (42.0-52.0); HEMOGLOBIN 14.7 g/dl (13.5-17.5); LYMPH # 2.9 10^3/uL (1.5-5.0); LYMPH % 28.8 % (24.0-44.0); MEAN CORPUSCULAR HEMOGLOBIN 29.5 pg (27.0-33.0); MEAN CORPUSCULAR HGB CONC 32.5 g/dl (32.0-36.5); MEAN CORPUSCULAR VOLUME 90.8 fl (80.0-96.0); MONO # 1.2 10^3/uL (0.0-0.8); MONO % 11.4 % (0.0-5.0); NEUTROPHILS # 5.5 10^3/uL (1.5-8.5); NEUTROPHILS % 53.7 % (36.0-66.0); PLATELET COUNT, AUTOMATED 284 10^3/uL (150-450); RED BLOOD COUNT 4.98 10^6/uL (4.30-6.10); WHITE BLOOD COUNT 10.2 10^3/uL (4.0-10.0)
[2020-07-28 13:39] LABS: ALBUMIN 3.8 GM/DL (3.2-5.2); ALT/SGPT 37 U/L (12-78); BILIRUBIN,TOTAL 0.5 MG/DL (0.2-1.0); BLOOD UREA NITROGEN 20 MG/DL (7-18); CALCIUM LEVEL 9.1 MG/DL (8.5-10.1); CARBON DIOXIDE LEVEL 27 MEQ/L (21-32); CHLORIDE LEVEL 101 MEQ/L (98-107); CREATININE FOR GFR 1.11 MG/DL (0.70-1.30); GLOMERULAR FILTRATION RATE > 60.0 (>56); GLUCOSE, FASTING 261 MG/DL (70-100); POTASSIUM SERUM 4.6 MEQ/L (3.5-5.1); SODIUM LEVEL 135 MEQ/L (136-145); TOTAL PROTEIN 7.3 GM/DL (6.4-8.2); VITAMIN B12 LEVEL 818 PG/ML (247-911)
[2020-07-28 13:46] LABS: HEMOGLOBIN A1c 10.8 %
== END ==
LOC: M PLALAB 09:53
PROVIDERS: ATTEND Family Medicine
DX: D50.9 Iron deficiency anemia, unspecified (principal); I10 Essential (primary) hypertension; E11.8 Type 2 diabetes mellitus with unspecified complications

== ENCOUNTER → 2020-08-21 | Outpatient (CLI) | payer OTHER ==
--- NOTE | 2020-08-21 13:58 | REPPI ---
INDICATION: M47.816 DEGENERATIVE JOINT DISEASE LUMBAR. COMPARISON: 07/20/2020. FINDINGS: Five views of the lumbosacral spine show no acute fracture, dislocation or subluxation. The intervertebral disc spaces show spondylosis and narrowing at L5-S1, less at L3-4 and L4-5. Spondylosis with marginal osteophytes seen throughout prominent osteophytes incidental fight seen in the lower thoracic spine and thoracolumbar junction. Some facet arthropathy at L4-5 and L5-S1 less at L3-4 and above. There is no spondylolysis or spondylolisthesis. The pedicles are intact bilaterally and there is no destructive osseous lesion. Normal lordosis maintained. IMPRESSION: Stable lumbosacral spine series with cervical spondylosis and facet arthropathy as described. No compression deformity, spondylolysis or other acute finding. <Electronically signed by Jesse Hankins > 08/21/20 [id number]
== END ==
LOC: M PLAIMG 11:17
PROVIDERS: ATTEND Family Medicine
DX: M47.816 Spondylosis without myelopathy or radiculopathy, lumbar region (principal); M47.812 Spondylosis without myelopathy or radiculopathy, cervical region

== ENCOUNTER → 2020-08-21 | Outpatient (REF) | payer OTHER ==
[2020-08-21 14:29] LABS: ALBUMIN 4.1 GM/DL (3.2-5.2); BLOOD UREA NITROGEN 21 MG/DL (7-18); CALCIUM LEVEL 9.9 MG/DL (8.5-10.1); CARBON DIOXIDE LEVEL 28 MEQ/L (21-32); CHLORIDE LEVEL 99 MEQ/L (98-107); CREATININE FOR GFR 1.05 MG/DL (0.70-1.30); GLOMERULAR FILTRATION RATE > 60.0 (>56); GLUCOSE, FASTING 317 MG/DL (70-100); MAGNESIUM LEVEL 2.1 MG/DL (1.8-2.4); NT-PRO BNP 37 PG/ML (<125); PHOSPHORUS LEVEL 3.4 MG/DL (2.5-4.9); POTASSIUM SERUM 4.7 MEQ/L (3.5-5.1); SODIUM LEVEL 134 MEQ/L (136-145)
== END ==
LOC: M SFHCPLAZ 10:48
PROVIDERS: ATTEND Family Medicine
DX: I50.32 Chronic diastolic (congestive) heart failure (principal)

== ENCOUNTER → 2020-09-01 | Outpatient (CLI) | payer OTHER ==
[2020-09-01 15:18] LABS: ALBUMIN 3.6 GM/DL (3.2-5.2); BLOOD UREA NITROGEN 17 MG/DL (7-18); CALCIUM LEVEL 9.4 MG/DL (8.5-10.1); CARBON DIOXIDE LEVEL 28 MEQ/L (21-32); CHLORIDE LEVEL 101 MEQ/L (98-107); CREATININE FOR GFR 0.96 MG/DL (0.70-1.30); GLOMERULAR FILTRATION RATE > 60.0 (>56); GLUCOSE, FASTING 272 MG/DL (70-100); NT-PRO BNP 32 PG/ML (<125); PHOSPHORUS LEVEL 3.5 MG/DL (2.5-4.9); POTASSIUM SERUM 4.4 MEQ/L (3.5-5.1); SODIUM LEVEL 133 MEQ/L (136-145)
== END ==
LOC: M PLALAB 11:34
PROVIDERS: ATTEND Family Medicine
DX: I50.32 Chronic diastolic (congestive) heart failure (principal)

== ENCOUNTER → 2020-10-26 | Outpatient (REF) | payer OTHER ==
[2020-10-26 14:03] LABS: HEMOGLOBIN A1c 8.9 %
[2020-10-26 14:32] LABS: ALBUMIN 3.8 GM/DL (3.2-5.2); ALT/SGPT 27 U/L (12-78); BILIRUBIN,TOTAL 0.2 MG/DL (0.2-1.0); BLOOD UREA NITROGEN 27 MG/DL (7-18); CALCIUM LEVEL 9.4 MG/DL (8.8-10.2); CARBON DIOXIDE LEVEL 30 MEQ/L (21-32); CHLORIDE LEVEL 106 MEQ/L (98-107); CHOLESTEROL LEVEL 147 MG/DL (<200); CHOLESTEROL RISK RATIO 2.041 (<5); CREATININE FOR GFR 1.03 MG/DL (0.70-1.30); FERRITIN 38 NG/ML (26-388); FREE T4 0.77 NG/DL (0.76-1.46); GLOMERULAR FILTRATION RATE > 60.0 (>49); GLUCOSE, FASTING 112 MG/DL (70-100); HDL CHOLESTEROL 72 MG/DL (>40); IRON (FE) 44 UG/DL (65-175); LDL CHOLESTEROL 61 MG/DL (<100); NON-HDL-C 75 MG/DL; PERCENT SATURATION 12.8 % (19.7-50.0); POTASSIUM SERUM 4.4 MEQ/L (3.5-5.1); SODIUM LEVEL 140 MEQ/L (136-145); THYROID PEROXIDASE ANTIBODY < 28.0 U/ML (<60.0); TOTAL 25(OH) VITAMIN D 38.3 NG/ML (30.0-100.0); TOTAL IRON BINDING CAPACITY 345 UG/DL (250-450); TOTAL PROTEIN 7.3 GM/DL (6.4-8.2); TRIGLYCERIDES LEVEL 70 MG/DL (<150)
== END ==
LOC: M PLALAB 10:23
PROVIDERS: ATTEND Family Medicine
DX: E11.8 Type 2 diabetes mellitus with unspecified complications (principal); D50.9 Iron deficiency anemia, unspecified; E78.2 Mixed hyperlipidemia; E55.9 Vitamin D deficiency, unspecified

== ENCOUNTER 2021-02-01 09:37 | Outpatient (RCR) | payer OTHER | END 2021-02-03 | LOC: M PT 09:37 | PROVIDERS: ATTEND Orthopaedic Surgery | DX: M19.012 Primary osteoarthritis, left shoulder (principal) ==

== ENCOUNTER → 2021-02-16 | Outpatient (CLI) | payer OTHER ==
--- NOTE | 2021-02-16 12:12 | REP ---
INDICATION: OSTEOARTHRITIS, R/O RTC TEAR. COMPARISON: None. TECHNIQUE: Coronal oblique T1 and fat suppressed T2. Sagittal oblique fat suppressed T2. Axial [id number]-dimt and T2 FLASH. FINDINGS: The examination is markedly limited due to motion artifact. Moderate to severe hypertrophic degenerative changes are seen in the acromioclavicular joint. Due to motion artifact I cannot accurately assess the acromion process. Due to motion artifact I cannot accurately assess the rotator cuff and to which degree there is suggestive evidence of T2 hyper signal. There appears to be moderate to potentially severe patchy and linear T2 hyper signal in the supraspinatus tendon. There is no definitive evidence of musculotendinous retraction or gross supraspinatus muscle atrophy. Hyper signal is also suspected in the infraspinatus and subscapularis tendons the degree of which can only be estimated at moderate to severe respectively. The biceps tendon is within the bicipital groove. There is no evidence of a gross joint effusion. There does appear to be some fluid in the subcoracoid recess. IMPRESSION: The exam is markedly limited as described above. There are some changes involving the acromioclavicular joint and rotator cuff tendons as described above. A repeat examination eliminating motion artifact is recommended. <Electronically signed by Hal Rabago > 02/16/21 [id number]
== END ==
LOC: M PLAIMG 10:58
PROVIDERS: ATTEND Physician Assistant
DX: M19.012 Primary osteoarthritis, left shoulder (principal)

== ENCOUNTER 2021-03-01 10:34 | Outpatient (RCR) | payer OTHER | END 2021-03-06 | LOC: M PT 10:34 | PROVIDERS: ATTEND Orthopaedic Surgery | DX: M19.012 Primary osteoarthritis, left shoulder (principal) ==

== ENCOUNTER → 2021-03-30 | Outpatient (CLI) | payer OTHER ==
[2021-03-30 15:24] LABS: BASO # 0.1 10^3/uL (0.0-0.2); BASO % 0.5 % (0.0-1.0); EOS # 0.4 10^3/uL (0.0-0.5); EOS % 3.2 % (0.0-3.0); HEMATOCRIT 46.3 % (42.0-52.0); HEMOGLOBIN 14.7 g/dl (13.5-17.5); LYMPH # 3.3 10^3/uL (1.5-5.0); MEAN CORPUSCULAR HEMOGLOBIN 29.4 pg (27.0-33.0); MEAN CORPUSCULAR HGB CONC 31.7 g/dl (32.0-36.5); MEAN CORPUSCULAR VOLUME 92.6 fl (80.0-96.0); MONO # 1.2 10^3/uL (0.0-0.8); MONO % 9.3 % (2.0-8.0); NEUTROPHILS # 7.7 10^3/uL (1.5-8.5); NEUTROPHILS % 60.5 % (36.0-66.0); PLATELET COUNT, AUTOMATED 331 10^3/uL (150-450); WHITE BLOOD COUNT 12.7 10^3/uL (4.0-10.0)
[2021-03-30 15:42] LABS: HEMOGLOBIN A1c 6.3 %
[2021-03-30 15:54] LABS: ALBUMIN 3.6 GM/DL (3.2-5.2); ALT/SGPT 27 U/L (12-78); BILIRUBIN,TOTAL 0.2 MG/DL (0.2-1.0); BLOOD UREA NITROGEN 20 MG/DL (7-18); CALCIUM LEVEL 9.5 MG/DL (8.8-10.2); CARBON DIOXIDE LEVEL 30 MEQ/L (21-32); CHLORIDE LEVEL 105 MEQ/L (98-107); CREATININE FOR GFR 0.96 MG/DL (0.70-1.30); FERRITIN 36 NG/ML (26-388); GLOMERULAR FILTRATION RATE > 60.0 (>49); GLUCOSE, FASTING 93 MG/DL (70-100); POTASSIUM SERUM 4.7 MEQ/L (3.5-5.1); SODIUM LEVEL 139 MEQ/L (136-145); TOTAL PROTEIN 7.2 GM/DL (6.4-8.2)
[2021-03-30 16:01] LABS: VITAMIN B12 LEVEL 458 PG/ML (247-911)
== END ==
LOC: M PLALAB 13:42
PROVIDERS: ATTEND Family Medicine
DX: E11.8 Type 2 diabetes mellitus with unspecified complications (principal)

== ENCOUNTER 2021-04-04 11:58 | Outpatient (RCR) | payer OTHER | END 2021-04-05 | LOC: M PT 11:58 | PROVIDERS: ATTEND Orthopaedic Surgery | DX: M19.012 Primary osteoarthritis, left shoulder (principal) ==

== ENCOUNTER 2021-04-13 09:30 | Outpatient (RCR) | payer OTHER | END 2021-05-06 | LOC: M PT 09:30 | PROVIDERS: ATTEND Orthopaedic Surgery | DX: M19.011 Primary osteoarthritis, right shoulder (principal) ==

== ENCOUNTER 2022-04-20 16:27 | Inpatient (IN) | payer OTHER, SELFPAY ==
[2022-04-20] VITALS (16 sets, daily range): BP systolic 55–140; BP diastolic 32–96
[~2022-04-20] VITALS: Ht 182.9 cm; Wt 142.5 kg
[2022-04-20] MEDS ORDERED: ISOVUE-370 76% 100ML VIAL As Ordered ONE (16:51)
[2022-04-20 16:55] LABS: VENOUS BASE EXCESS -3.3 (-2.0-2.0); VENOUS HCO3 23.1 MEQ/L (23.0-27.0); VENOUS O2 SATURATION 59.1 % (60.0-80.0); VENOUS PARTIAL PRESSURE CO2 46.3 mmHg (38.0-50.0); VENOUS PARTIAL PRESSURE O2 32.5 mmHg (30.0-50.0); VENOUS PH 7.316 UNITS (7.330-7.430); VENOUS STANDARD HCO3 20.8 MEQ/L; VENOUS TOTAL CO2 24.5 MEQ/L (24.0-28.0)
[2022-04-20 17:04] LABS: BASO % 0.2 % (0.0-1.0); HEMATOCRIT 45.3 % (42.0-52.0); HEMOGLOBIN 14.8 g/dl (13.5-17.5); LYMPH # 0.7 10^3/uL (1.5-5.0); LYMPH % 4.5 % (24.0-44.0); MEAN CORPUSCULAR HEMOGLOBIN 29.4 pg (27.0-33.0); MEAN CORPUSCULAR HGB CONC 32.7 g/dl (32.0-36.5); MEAN CORPUSCULAR VOLUME 89.9 fl (80.0-96.0); MONO # 1.2 10^3/uL (0.0-0.8); MONO % 8.2 % (2.0-8.0); NEUTROPHILS # 13.1 10^3/uL (1.5-8.5); NEUTROPHILS % 86.6 % (36.0-66.0); PLATELET COUNT, AUTOMATED 271 10^3/uL (150-450); RED BLOOD COUNT 5.04 10^6/uL (4.30-6.10); WHITE BLOOD COUNT 15.2 10^3/uL (4.0-10.0)
[2022-04-20 17:11] LABS: INR 0.87
[2022-04-20 17:13] LABS: PARTIAL THROMBOPLASTIN TIME 27.5 SECONDS (24.8-34.2)
[2022-04-20 17:35] LABS: ALBUMIN 2.7 GM/DL (3.2-5.2); BILIRUBIN,DIRECT 0.2 MG/DL (0.0-0.2); BILIRUBIN,TOTAL 0.4 MG/DL (0.2-1.0); TOTAL PROTEIN 5.3 GM/DL (6.4-8.2)
[2022-04-20 17:36] LABS: RSV AMPLIFICATION NEGATIVE (NEGATIVE)
[2022-04-20] MEDS ORDERED: ONDANSETRON 4MG 2ML VIAL IV PRN ×2 (17:45→21:30)
[2022-04-20] MEDS ORDERED: BISACODYL 10 MG SUPP PR PRN (17:45)
[2022-04-20] MEDS ORDERED: LEVALBUTEROL 1.25 MG/0.5 ML CONCENTRATE NEB NEB PRN (17:45)
[2022-04-20] MEDS ORDERED: ACETAMINOPHEN TAB 650MG DOSE (2X325MG) PO PRN (17:45)
[2022-04-20] MEDS ORDERED: GLUCOSE 4GM CHEW TABLET PO PRN (18:30)
[2022-04-20] MEDS ORDERED: DEXTROSE 50% 50 ML SYRINGE IV PRN (18:30)
[2022-04-20] MEDS ORDERED: GLUCAGON INJ 1MG VIAL SC PRN (18:30)
[2022-04-20] MEDS: LEVALBUTEROL 1.25 MG/0.5 ML CONCENTRATE NEB NEB SCH (20:00)
[2022-04-20] MEDS ORDERED: diltiaZEM 125 MG in NS 100 ML IV SCH (20:00)
[2022-04-20] MEDS ORDERED: METOCLOPRAMIDE INJ 10MG/2ML VIAL (J2765 PER 1) IV PRN (20:10)
[2022-04-20] MEDS ORDERED: NALBUPHINE HCL 10 MG/ML AMP (J2300) IV PRN (20:10)
[2022-04-20 20:17] LABS: BLOOD UREA NITROGEN 18 MG/DL (7-18); CALCIUM LEVEL 8.6 MG/DL (8.8-10.2); CARBON DIOXIDE LEVEL 23 MEQ/L (21-32); CHLORIDE LEVEL 106 MEQ/L (98-107); CREATININE FOR GFR 0.88 MG/DL (0.70-1.30); GLOMERULAR FILTRATION RATE > 60.0 (>49); GLUCOSE, FASTING 192 MG/DL (70-100); MAGNESIUM LEVEL 1.8 MG/DL (1.8-2.4); POTASSIUM SERUM 4.3 MEQ/L (3.5-5.1); SODIUM LEVEL 136 MEQ/L (136-145)
[2022-04-20] MEDS: INSULIN LISPRO (NovoLOG) PER UNIT SC SCH (20:19)
[2022-04-20] MEDS: KETOROLAC 30 MG/ML 1ML VIAL IV SCH (20:23)
[2022-04-20] MEDS: DOCUSATE SODIUM 100MG CAPSULE PO SCH (20:23)
[2022-04-20] MEDS ORDERED: KCL 20MEQ IN D5/NS 1000ML 1,000 ML IV SCH (20:30)
[2022-04-20] MEDS ORDERED: LIDOCAINE 1% SDV 5ML VIAL PN ONE (20:30)
[2022-04-20 20:38] LABS: HEMATOCRIT 43.8 % (42.0-52.0); HEMOGLOBIN 14.7 g/dl (13.5-17.5); MEAN CORPUSCULAR HEMOGLOBIN 29.8 pg (27.0-33.0); MEAN CORPUSCULAR HGB CONC 33.6 g/dl (32.0-36.5); MEAN CORPUSCULAR VOLUME 88.8 fl (80.0-96.0); PLATELET COUNT, AUTOMATED 258 10^3/uL (150-450); RED BLOOD COUNT 4.93 10^6/uL (4.30-6.10); WHITE BLOOD COUNT 12.2 10^3/uL (4.0-10.0)
[2022-04-20] MEDS: fentaNYL 100 MCG/2 ML INJECTION IV PRN ×2 (20:58→21:06)
[2022-04-20] MEDS: MIDAZOLAM INJ 2MG/2ML VIAL (J2250 PER 1MG) IV PRN ×2 (20:58→21:06)
[2022-04-20] MEDS ORDERED: LIDOCAINE 2% W/EPINEPHRINE 20ML VIAL **PRES FREE As Ordered ONE (21:21)
[2022-04-20] MEDS ORDERED: NALOXONE INJ 0.4MG/1ML VIAL (J2310 PER 1MG) IV PRN (21:30)
[2022-04-20] MEDS ORDERED: EPIDURAL/PCA KEYS XX PRN (21:30)
[2022-04-20] MEDS ORDERED: diphenhydrAMINE 50MG/ML VIAL (J1200) IV PRN (21:30)
[2022-04-20] MEDS: FENTANYL/BUPIVACAINE/NACL BAG 250 ML EPIDURAL SCH (22:23)
[2022-04-20] MEDS ORDERED: NS 500 ML IV ONE (22:30)
[2022-04-20] MEDS ORDERED: LEVALBUTEROL 1.25 MG/0.5 ML CONCENTRATE NEB NEB ONE (23:00)
[2022-04-20] MEDS ORDERED: DIGOXIN INJ 0.5 MG/2 ML AMP (J1160) IV STA (23:10)
[2022-04-21] VITALS (39 sets, daily range): BP systolic 90–146; BP diastolic 50–86
[2022-04-21] MEDS: PERCOCET 5MG/325MG TAB PO PRN ×3 (00:52→09:20)
[2022-04-21] MEDS: dexameTHASONE 20MG/5ML VIAL (J1100 PER 1MG) IV SCH ×2 (00:54→09:22)
[2022-04-21] MEDS: LEVALBUTEROL 1.25 MG/0.5 ML CONCENTRATE NEB NEB SCH ×2 (01:49→07:56)
[2022-04-21] MEDS: KETOROLAC 30 MG/ML 1ML VIAL IV SCH ×4 (03:15→21:38)
[2022-04-21 05:11] LABS: BASO % 0.1 % (0.0-1.0); HEMATOCRIT 41.2 % (42.0-52.0); HEMOGLOBIN 13.6 g/dl (13.5-17.5); LYMPH # 0.5 10^3/uL (1.5-5.0); LYMPH % 4.8 % (24.0-44.0); MEAN CORPUSCULAR HEMOGLOBIN 29.5 pg (27.0-33.0); MEAN CORPUSCULAR VOLUME 89.4 fl (80.0-96.0); MONO # 0.8 10^3/uL (0.0-0.8); NEUTROPHILS # 9.6 10^3/uL (1.5-8.5); NEUTROPHILS % 87.7 % (36.0-66.0); PLATELET COUNT, AUTOMATED 233 10^3/uL (150-450); RED BLOOD COUNT 4.61 10^6/uL (4.30-6.10); WHITE BLOOD COUNT 10.9 10^3/uL (4.0-10.0)
[2022-04-21 05:37] LABS: BLOOD UREA NITROGEN 18 MG/DL (7-18); CALCIUM LEVEL 8.1 MG/DL (8.8-10.2); CARBON DIOXIDE LEVEL 20 MEQ/L (21-32); CHLORIDE LEVEL 108 MEQ/L (98-107); CREATININE FOR GFR 0.94 MG/DL (0.70-1.30); GLOMERULAR FILTRATION RATE > 60.0 (>49); GLUCOSE, FASTING 211 MG/DL (70-100); SODIUM LEVEL 136 MEQ/L (136-145)
[2022-04-21 06:11] LABS: ABG BASE EXCESS -4.4 (-2.0-2.0); ABG HCO3 19.1 MEQ/L (22.0-26.0); ABG O2 SATURATION 95.2 % (95.0-99.0); ABG PARTIAL PRESSURE CO2 31.4 mmHg (35.0-45.0); ABG PARTIAL PRESSURE O2 74.9 mmHg (75.0-100.0); ABG STANDARD HCO3 20.8 MEQ/L (22.0-26.0); ABG TOTAL CO2 20.1 MEQ/L (23.0-31.0); ABG pH (ARTERIAL) 7.403 UNITS (7.350-7.450)
[2022-04-21] MEDS ORDERED: REMDESIVIR 200 MG in NS 250 ML IV ONE (07:00)
[2022-04-21] MEDS ORDERED: HEPARIN SOD (PORCINE) 5000UNITS/ML 1ML VIAL/SYRINGE SC SCH (09:00)
[2022-04-21] MEDS ORDERED: PANTOPRAZOLE 40MG VIAL IV SCH (09:00)
[2022-04-21] MEDS: MOM 30ML SUSPENSION UDC PO SCH (09:00)
[2022-04-21] MEDS ORDERED: FLUBLOK(EGG FREE)(QUAD)INFLUENZA VACC 0.5ML SYRINGE 18YRS & OLDER IM.IMMUN ONE (09:00)
[2022-04-21] MEDS ORDERED: SODIUM CHLORIDE 0.9% INJ 10 ML SYR IV ONE (09:00)
[2022-04-21] MEDS: DOCUSATE SODIUM 100MG CAPSULE PO SCH ×2 (09:24→21:38)
[2022-04-21] MEDS: INSULIN LISPRO (NovoLOG) PER UNIT SC SCH ×4 (09:24→21:00)
[2022-04-21] MEDS: PANTOPRAZOLE 40MG TAB (PROTONIX) PO SCH (09:26)
[2022-04-21] MEDS: diltiaZEM 125 MG in NS 100 ML IV SCH ×2 (09:38→17:59)
[2022-04-21] MEDS ORDERED: NS 1,000 ML IV ONE ×2 (12:00)
[2022-04-21] MEDS ORDERED: NS 1,000 ML IV SCH (14:00)
[2022-04-21] MEDS ORDERED: LEVALBUTEROL HFA 45MCG/ACT 15 GM INHALER INH SCH (14:00)
[2022-04-21] MEDS: FENTANYL/BUPIVACAINE/NACL BAG 250 ML EPIDURAL SCH (21:38)
[2022-04-22] VITALS (27 sets, daily range): BP systolic 84–108; BP diastolic 52–75
[2022-04-22] MEDS: diltiaZEM 125 MG in NS 100 ML IV SCH (00:23)
[2022-04-22] MEDS: KETOROLAC 30 MG/ML 1ML VIAL IV SCH ×4 (03:33→20:48)
[2022-04-22] MEDS: REMDESIVIR 100 MG in NS 250 ML IV SCH (06:21)
[2022-04-22 06:42] LABS: BASO % 0.1 % (0.0-1.0); HEMATOCRIT 38.9 % (42.0-52.0); HEMOGLOBIN 12.5 g/dl (13.5-17.5); LYMPH # 0.7 10^3/uL (1.5-5.0); LYMPH % 3.7 % (24.0-44.0); MEAN CORPUSCULAR HEMOGLOBIN 29.6 pg (27.0-33.0); MEAN CORPUSCULAR HGB CONC 32.1 g/dl (32.0-36.5); MONO # 1.5 10^3/uL (0.0-0.8); MONO % 7.5 % (2.0-8.0); NEUTROPHILS # 16.9 10^3/uL (1.5-8.5); NEUTROPHILS % 87.9 % (36.0-66.0); PLATELET COUNT, AUTOMATED 227 10^3/uL (150-450); RED BLOOD COUNT 4.23 10^6/uL (4.30-6.10); WHITE BLOOD COUNT 19.2 10^3/uL (4.0-10.0)
[2022-04-22 07:30] LABS: ALBUMIN 2.7 GM/DL (3.2-5.2); ALT/SGPT 56 U/L (12-78); BILIRUBIN,DIRECT 0.2 MG/DL (0.0-0.2); BILIRUBIN,TOTAL 0.6 MG/DL (0.2-1.0); BLOOD UREA NITROGEN 25 MG/DL (7-18); CALCIUM LEVEL 7.9 MG/DL (8.8-10.2); CARBON DIOXIDE LEVEL 22 MEQ/L (21-32); CHLORIDE LEVEL 112 MEQ/L (98-107); CREATININE FOR GFR 0.89 MG/DL (0.70-1.30); FERRITIN 258 NG/ML (26-388); GLOMERULAR FILTRATION RATE > 60.0 (>49); GLUCOSE, FASTING 219 MG/DL (70-100); POTASSIUM SERUM 4.4 MEQ/L (3.5-5.1); SODIUM LEVEL 140 MEQ/L (136-145); TOTAL PROTEIN 5.8 GM/DL (6.4-8.2)
[2022-04-22] MEDS: MOM 30ML SUSPENSION UDC PO SCH (08:35)
[2022-04-22] MEDS: PANTOPRAZOLE 40MG TAB (PROTONIX) PO SCH (08:36)
[2022-04-22] MEDS: DOCUSATE SODIUM 100MG CAPSULE PO SCH ×2 (08:36→20:49)
[2022-04-22] MEDS: SODIUM CHLORIDE 0.9% INJ 10 ML SYR IV SCH (08:36)
[2022-04-22] MEDS: INSULIN LISPRO (NovoLOG) PER UNIT SC SCH ×4 (08:36→20:46)
[2022-04-22] MEDS ORDERED: METOPROLOL TART 25 MG TABLET PO SCH (10:30)
[2022-04-22] MEDS ORDERED: DIGOXIN INJ 0.5 MG/2 ML AMP (J1160) IV ONE (11:40)
[2022-04-22] MEDS ORDERED: GABA800T4 PO (11:50)
[2022-04-22] MEDS ORDERED: ATOR40TA75 PO (11:53)
[2022-04-22] MEDS ORDERED: LISI10TA22 PO (11:53)
[2022-04-22] MEDS ORDERED: METF10004 PO (11:53)
[2022-04-22] MEDS ORDERED: FURO20TA2 PO (11:59)
[2022-04-22] MEDS ORDERED: BASA100I SQ (12:01)
[2022-04-22] MEDS ORDERED: TRUL10IN SQ (12:01)
[2022-04-22] MEDS ORDERED: atenoloL 25 MG TAB PO ONE (12:05)
[2022-04-22] MEDS ORDERED: HOME MED LIST COMPLETE! XX SCH (12:05)
[2022-04-22] MEDS: MIDODRINE 5 MG TAB PO SCH ×2 (12:07→16:28)
[2022-04-22] MEDS ORDERED: NS 500 ML IV ONE (16:20)
[2022-04-22] MEDS: DIGOXIN INJ 0.5 MG/2 ML AMP (J1160) IV SCH ×2 (17:58→23:40)
[2022-04-22] MEDS: LEVEMIR (INSULIN DETEMIR) 1 UNITS/0.01ML SC SCH (20:48)
[2022-04-22] MEDS: FENTANYL/BUPIVACAINE/NACL BAG 250 ML EPIDURAL SCH (21:00)
[2022-04-22] MEDS: atenoloL 50 MG TAB PO SCH (21:00)
[2022-04-23] VITALS (9 sets, daily range): BP systolic 90–139; BP diastolic 52–87
[2022-04-23] MEDS: KETOROLAC 30 MG/ML 1ML VIAL IV SCH ×4 (01:34→20:34)
[2022-04-23] MEDS: REMDESIVIR 100 MG in NS 250 ML IV SCH (06:15)
[2022-04-23 06:36] LABS: BASO % 0.1 % (0.0-1.0); HEMATOCRIT 38.3 % (42.0-52.0); HEMOGLOBIN 12.3 g/dl (13.5-17.5); LYMPH # 1.7 10^3/uL (1.5-5.0); LYMPH % 11.5 % (24.0-44.0); MEAN CORPUSCULAR HEMOGLOBIN 29.8 pg (27.0-33.0); MEAN CORPUSCULAR HGB CONC 32.1 g/dl (32.0-36.5); MEAN CORPUSCULAR VOLUME 92.7 fl (80.0-96.0); MONO # 1.3 10^3/uL (0.0-0.8); MONO % 8.6 % (2.0-8.0); NEUTROPHILS % 79.3 % (36.0-66.0); PLATELET COUNT, AUTOMATED 220 10^3/uL (150-450); RED BLOOD COUNT 4.13 10^6/uL (4.30-6.10); WHITE BLOOD COUNT 15.1 10^3/uL (4.0-10.0)
[2022-04-23 07:23] LABS: BLOOD UREA NITROGEN 32 MG/DL (7-18); CALCIUM LEVEL 7.9 MG/DL (8.8-10.2); CARBON DIOXIDE LEVEL 22 MEQ/L (21-32); CHLORIDE LEVEL 110 MEQ/L (98-107); CREATININE FOR GFR 0.83 MG/DL (0.70-1.30); DIGOXIN LEVEL 0.7 NG/ML (0.5-2.0); GLOMERULAR FILTRATION RATE > 60.0 (>49); GLUCOSE, FASTING 168 MG/DL (70-100); POTASSIUM SERUM 4.3 MEQ/L (3.5-5.1); SODIUM LEVEL 138 MEQ/L (136-145)
[2022-04-23] MEDS: SODIUM CHLORIDE 0.9% INJ 10 ML SYR IV SCH (07:54)
[2022-04-23] MEDS: MIDODRINE 5 MG TAB PO SCH ×3 (08:00→17:39)
[2022-04-23] MEDS: atenoloL 50 MG TAB PO SCH ×2 (08:51→20:30)
[2022-04-23] MEDS: MOM 30ML SUSPENSION UDC PO SCH (08:51)
[2022-04-23] MEDS: PANTOPRAZOLE 40MG TAB (PROTONIX) PO SCH (08:51)
[2022-04-23] MEDS: DOCUSATE SODIUM 100MG CAPSULE PO SCH ×2 (08:51→20:30)
[2022-04-23] MEDS: INSULIN LISPRO (NovoLOG) PER UNIT SC SCH ×4 (08:52→20:31)
[2022-04-23] MEDS: FENTANYL/BUPIVACAINE/NACL BAG 250 ML EPIDURAL SCH (20:29)
[2022-04-23] MEDS: LEVEMIR (INSULIN DETEMIR) 1 UNITS/0.01ML SC SCH (20:33)
[2022-04-24] VITALS: BP 103/68
[2022-04-24] MEDS: KETOROLAC 30 MG/ML 1ML VIAL IV SCH ×4 (01:33→20:38)
[2022-04-24 04:00] VITALS: BP 100/74
[2022-04-24] MEDS: REMDESIVIR 100 MG in NS 250 ML IV SCH (06:17)
[2022-04-24 06:53] LABS: BASO % 0.2 % (0.0-1.0); EOS # 0.1 10^3/uL (0.0-0.5); EOS % 1.2 % (0.0-3.0); HEMATOCRIT 37.9 % (42.0-52.0); HEMOGLOBIN 12.2 g/dl (13.5-17.5); LYMPH # 2.7 10^3/uL (1.5-5.0); LYMPH % 22.3 % (24.0-44.0); MEAN CORPUSCULAR HEMOGLOBIN 29.7 pg (27.0-33.0); MEAN CORPUSCULAR HGB CONC 32.2 g/dl (32.0-36.5); MEAN CORPUSCULAR VOLUME 92.2 fl (80.0-96.0); MONO # 1.1 10^3/uL (0.0-0.8); NEUTROPHILS # 7.9 10^3/uL (1.5-8.5); NEUTROPHILS % 66.6 % (36.0-66.0); PLATELET COUNT, AUTOMATED 270 10^3/uL (150-450); RED BLOOD COUNT 4.11 10^6/uL (4.30-6.10); WHITE BLOOD COUNT 11.9 10^3/uL (4.0-10.0)
[2022-04-24 07:30] LABS: BLOOD UREA NITROGEN 27 MG/DL (7-18); CALCIUM LEVEL 7.6 MG/DL (8.8-10.2); CARBON DIOXIDE LEVEL 25 MEQ/L (21-32); CHLORIDE LEVEL 109 MEQ/L (98-107); CREATININE FOR GFR 0.78 MG/DL (0.70-1.30); GLOMERULAR FILTRATION RATE > 60.0 (>49); GLUCOSE, FASTING 182 MG/DL (70-100); POTASSIUM SERUM 4.6 MEQ/L (3.5-5.1); SODIUM LEVEL 138 MEQ/L (136-145)
[2022-04-24 08:00] VITALS: BP 118/61
[2022-04-24] MEDS: MIDODRINE 5 MG TAB PO SCH ×3 (08:31→16:53)
[2022-04-24] MEDS: PANTOPRAZOLE 40MG TAB (PROTONIX) PO SCH (08:31)
[2022-04-24] MEDS: INSULIN LISPRO (NovoLOG) PER UNIT SC SCH ×4 (08:31→20:38)
[2022-04-24] MEDS: SODIUM CHLORIDE 0.9% INJ 10 ML SYR IV SCH (08:31)
[2022-04-24] MEDS: DOCUSATE SODIUM 100MG CAPSULE PO SCH ×2 (08:32→20:37)
[2022-04-24] MEDS: atenoloL 50 MG TAB PO SCH ×2 (08:32→20:37)
[2022-04-24] MEDS: dexameTHASONE 4 MG/ML 1ML VIAL (J1100 PER 1MG) IV SCH (08:32)
[2022-04-24] MEDS: MOM 30ML SUSPENSION UDC PO SCH (08:32)
[2022-04-24 11:50] VITALS: BP 116/60
[2022-04-24 16:00] VITALS: BP 115/76
[2022-04-24 20:21] VITALS: BP 122/70
[2022-04-24] MEDS: LEVEMIR (INSULIN DETEMIR) 1 UNITS/0.01ML SC SCH (20:37)
[2022-04-24] MEDS: FENTANYL/BUPIVACAINE/NACL BAG 250 ML EPIDURAL SCH (21:02)
[2022-04-25] VITALS: BP 143/77
[2022-04-25] MEDS: KETOROLAC 30 MG/ML 1ML VIAL IV SCH ×3 (02:14→14:22)
[2022-04-25 05:59] VITALS: BP 117/71
[2022-04-25 06:27] LABS: BASO % 0.2 % (0.0-1.0); EOS # 0.1 10^3/uL (0.0-0.5); EOS % 0.7 % (0.0-3.0); HEMOGLOBIN 12.6 g/dl (13.5-17.5); LYMPH # 2.5 10^3/uL (1.5-5.0); LYMPH % 16.9 % (24.0-44.0); MEAN CORPUSCULAR HEMOGLOBIN 29.6 pg (27.0-33.0); MEAN CORPUSCULAR HGB CONC 32.3 g/dl (32.0-36.5); MEAN CORPUSCULAR VOLUME 91.8 fl (80.0-96.0); MONO # 1.3 10^3/uL (0.0-0.8); MONO % 8.6 % (2.0-8.0); NEUTROPHILS # 10.9 10^3/uL (1.5-8.5); NEUTROPHILS % 72.3 % (36.0-66.0); PLATELET COUNT, AUTOMATED 320 10^3/uL (150-450); RED BLOOD COUNT 4.25 10^6/uL (4.30-6.10)
[2022-04-25] MEDS: REMDESIVIR 100 MG in NS 250 ML IV SCH (06:47)
[2022-04-25 06:51] LABS: BLOOD UREA NITROGEN 27 MG/DL (7-18); CALCIUM LEVEL 8.1 MG/DL (8.8-10.2); CARBON DIOXIDE LEVEL 27 MEQ/L (21-32); CHLORIDE LEVEL 107 MEQ/L (98-107); CREATININE FOR GFR 0.94 MG/DL (0.70-1.30); GLOMERULAR FILTRATION RATE > 60.0 (>49); GLUCOSE, FASTING 182 MG/DL (70-100); POTASSIUM SERUM 4.9 MEQ/L (3.5-5.1); SODIUM LEVEL 139 MEQ/L (136-145)
[2022-04-25] MEDS: MIDODRINE 5 MG TAB PO SCH ×3 (08:00→16:00)
[2022-04-25] MEDS: SODIUM CHLORIDE 0.9% INJ 10 ML SYR IV SCH (08:30)
[2022-04-25] MEDS: INSULIN LISPRO (NovoLOG) PER UNIT SC SCH ×4 (09:58→20:28)
[2022-04-25] MEDS: MOM 30ML SUSPENSION UDC PO SCH (09:59)
[2022-04-25] MEDS: atenoloL 50 MG TAB PO SCH ×2 (09:59→20:28)
[2022-04-25] MEDS: DOCUSATE SODIUM 100MG CAPSULE PO SCH ×2 (09:59→20:28)
[2022-04-25] MEDS: PANTOPRAZOLE 40MG TAB (PROTONIX) PO SCH (09:59)
[2022-04-25] MEDS: dexameTHASONE 4 MG/ML 1ML VIAL (J1100 PER 1MG) IV SCH (10:00)
[2022-04-25 12:00] VITALS: BP 128/55
[2022-04-25 20:01] VITALS: BP 128/75
[2022-04-25] MEDS: FENTANYL/BUPIVACAINE/NACL BAG 250 ML EPIDURAL SCH (20:27)
[2022-04-25] MEDS: LEVEMIR (INSULIN DETEMIR) 1 UNITS/0.01ML SC SCH (20:29)
[2022-04-26] VITALS (7 sets, daily range): BP systolic 120–151; BP diastolic 69–93
[2022-04-26 06:38] LABS: BASO % 0.2 % (0.0-1.0); EOS # 0.1 10^3/uL (0.0-0.5); EOS % 0.6 % (0.0-3.0); HEMATOCRIT 38.6 % (42.0-52.0); HEMOGLOBIN 12.6 g/dl (13.5-17.5); LYMPH # 2.4 10^3/uL (1.5-5.0); LYMPH % 15.9 % (24.0-44.0); MEAN CORPUSCULAR HEMOGLOBIN 29.4 pg (27.0-33.0); MEAN CORPUSCULAR HGB CONC 32.6 g/dl (32.0-36.5); MEAN CORPUSCULAR VOLUME 90.2 fl (80.0-96.0); MONO # 1.3 10^3/uL (0.0-0.8); MONO % 8.7 % (2.0-8.0); NEUTROPHILS # 11.1 10^3/uL (1.5-8.5); NEUTROPHILS % 72.7 % (36.0-66.0); PLATELET COUNT, AUTOMATED 356 10^3/uL (150-450); RED BLOOD COUNT 4.28 10^6/uL (4.30-6.10); WHITE BLOOD COUNT 15.3 10^3/uL (4.0-10.0)
[2022-04-26 07:09] LABS: BLOOD UREA NITROGEN 21 MG/DL (7-18); CALCIUM LEVEL 8.1 MG/DL (8.8-10.2); CARBON DIOXIDE LEVEL 28 MEQ/L (21-32); CHLORIDE LEVEL 107 MEQ/L (98-107); CREATININE FOR GFR 0.87 MG/DL (0.70-1.30); GLOMERULAR FILTRATION RATE > 60.0 (>49); GLUCOSE, FASTING 172 MG/DL (70-100); POTASSIUM SERUM 4.9 MEQ/L (3.5-5.1); SODIUM LEVEL 139 MEQ/L (136-145)
[2022-04-26] MEDS: MIDODRINE 5 MG TAB PO SCH ×3 (08:00→16:30)
[2022-04-26] MEDS: PANTOPRAZOLE 40MG TAB (PROTONIX) PO SCH (08:03)
[2022-04-26] MEDS: INSULIN LISPRO (NovoLOG) PER UNIT SC SCH ×4 (08:03→21:10)
[2022-04-26] MEDS: DOCUSATE SODIUM 100MG CAPSULE PO SCH ×2 (08:03→21:08)
[2022-04-26] MEDS: MOM 30ML SUSPENSION UDC PO SCH (08:03)
[2022-04-26] MEDS: dexameTHASONE 4 MG/ML 1ML VIAL (J1100 PER 1MG) IV SCH (08:04)
[2022-04-26] MEDS: atenoloL 50 MG TAB PO SCH ×2 (08:04→21:09)
[2022-04-26] MEDS: PERCOCET 5MG/325MG TAB PO PRN ×2 (14:10→21:09)
[2022-04-26] MEDS: LEVEMIR (INSULIN DETEMIR) 1 UNITS/0.01ML SC SCH (21:10)
[2022-04-27] MEDS: PERCOCET 5MG/325MG TAB PO PRN ×3 (02:35→13:50)
[2022-04-27] MEDS: MORPHINE 2 MG/ML 1ML VIAL IV PRN ×2 (03:38→08:43)
[2022-04-27 03:40] VITALS: BP 132/89
[2022-04-27 08:00] VITALS: BP 136/80
[2022-04-27 08:26] LABS: HEMATOCRIT 42.8 % (42.0-52.0); HEMOGLOBIN 13.9 g/dl (13.5-17.5); MEAN CORPUSCULAR HEMOGLOBIN 29.3 pg (27.0-33.0); MEAN CORPUSCULAR HGB CONC 32.5 g/dl (32.0-36.5); MEAN CORPUSCULAR VOLUME 90.1 fl (80.0-96.0); PLATELET COUNT, AUTOMATED 419 10^3/uL (150-450); RED BLOOD COUNT 4.75 10^6/uL (4.30-6.10); WHITE BLOOD COUNT 17.8 10^3/uL (4.0-10.0)
[2022-04-27] MEDS: DOCUSATE SODIUM 100MG CAPSULE PO SCH ×2 (08:32→20:48)
[2022-04-27] MEDS: MOM 30ML SUSPENSION UDC PO SCH (08:33)
[2022-04-27] MEDS: atenoloL 50 MG TAB PO SCH ×2 (08:33→20:47)
[2022-04-27] MEDS: PANTOPRAZOLE 40MG TAB (PROTONIX) PO SCH (08:33)
[2022-04-27] MEDS: INSULIN LISPRO (NovoLOG) PER UNIT SC SCH ×4 (08:34→20:48)
[2022-04-27] MEDS: dexameTHASONE 4 MG/ML 1ML VIAL (J1100 PER 1MG) IV SCH (08:34)
[2022-04-27 08:53] LABS: BLOOD UREA NITROGEN 18 MG/DL (7-18); CALCIUM LEVEL 8.7 MG/DL (8.8-10.2); CARBON DIOXIDE LEVEL 31 MEQ/L (21-32); CHLORIDE LEVEL 102 MEQ/L (98-107); CREATININE FOR GFR 0.84 MG/DL (0.70-1.30); GLOMERULAR FILTRATION RATE > 60.0 (>49); GLUCOSE, FASTING 200 MG/DL (70-100); SODIUM LEVEL 137 MEQ/L (136-145)
[2022-04-27] MEDS ORDERED: APIXABAN 5 MG TAB (ELIQUIS) PO SCH (09:00)
[2022-04-27 09:54] LABS: C REACTIVE PROTEIN QUANTITATIV 1.61 MG/DL (0.00-0.30)
[2022-04-27 12:00] VITALS: BP 160/98
[2022-04-27] MEDS ORDERED: KETOROLAC 30 MG/ML 1ML VIAL As Ordered ONE (12:08)
[2022-04-27] MEDS: GABAPENTIN 400MG CAP PO SCH ×3 (12:15→20:48)
[2022-04-27] MEDS: ATORVASTATIN 20 MG TAB PO SCH (12:15)
[2022-04-27] MEDS: NS 1,000 ML IV SCH (12:15)
[2022-04-27] MEDS ORDERED: diphenhydrAMINE 50MG/ML VIAL (J1200) IV PRN (12:15)
[2022-04-27] MEDS: KETOROLAC 30 MG/ML 1ML VIAL IV SCH ×2 (12:17→17:09)
[2022-04-27 17:00] VITALS: BP 135/87
[2022-04-27 19:43] VITALS: BP 150/78
[2022-04-27] MEDS: MORPHINE 1MG/ML IN 0.9% NACL 100ML IV BAG IV PRN (20:13)
[2022-04-27] MEDS: LEVEMIR (INSULIN DETEMIR) 1 UNITS/0.01ML SC SCH (20:48)
[2022-04-27 23:34] VITALS: BP 120/94
[2022-04-28] VITALS (7 sets, daily range): BP systolic 110–131; BP diastolic 64–97
[2022-04-28] MEDS: KETOROLAC 30 MG/ML 1ML VIAL IV SCH ×4 (00:36→17:27)
[2022-04-28] MEDS: DOCUSATE SODIUM 100MG CAPSULE PO SCH ×2 (08:43→21:12)
[2022-04-28] MEDS: INSULIN LISPRO (NovoLOG) PER UNIT SC SCH ×4 (08:43→21:13)
[2022-04-28] MEDS: ATORVASTATIN 20 MG TAB PO SCH (08:43)
[2022-04-28] MEDS: GABAPENTIN 400MG CAP PO SCH ×3 (08:43→21:12)
[2022-04-28] MEDS: PANTOPRAZOLE 40MG TAB (PROTONIX) PO SCH (08:44)
[2022-04-28] MEDS: atenoloL 50 MG TAB PO SCH ×2 (08:50→21:12)
[2022-04-28] MEDS: MOM 30ML SUSPENSION UDC PO SCH (08:50)
[2022-04-28] MEDS ORDERED: FUROSEMIDE 40MG/4ML VIAL (J1940) IV ONE (10:40)
[2022-04-28] MEDS: NS 1,000 ML IV SCH (12:42)
[2022-04-28 13:01] LABS: HEMATOCRIT 47.2 % (42.0-52.0); HEMOGLOBIN 15.1 g/dl (13.5-17.5); MEAN CORPUSCULAR HEMOGLOBIN 29.3 pg (27.0-33.0); MEAN CORPUSCULAR VOLUME 91.5 fl (80.0-96.0); PLATELET COUNT, AUTOMATED 324 10^3/uL (150-450); RED BLOOD COUNT 5.16 10^6/uL (4.30-6.10)
[2022-04-28 13:32] LABS: BLOOD UREA NITROGEN 19 MG/DL (7-18); CALCIUM LEVEL 8.6 MG/DL (8.8-10.2); CARBON DIOXIDE LEVEL 31 MEQ/L (21-32); CHLORIDE LEVEL 101 MEQ/L (98-107); CREATININE FOR GFR 0.87 MG/DL (0.70-1.30); GLOMERULAR FILTRATION RATE > 60.0 (>49); GLUCOSE, FASTING 253 MG/DL (70-100); POTASSIUM SERUM 4.5 MEQ/L (3.5-5.1); SODIUM LEVEL 137 MEQ/L (136-145)
[2022-04-28] MEDS: LEVEMIR (INSULIN DETEMIR) 1 UNITS/0.01ML SC SCH (21:14)
[2022-04-29] MEDS: KETOROLAC 30 MG/ML 1ML VIAL IV SCH ×5 (00:41→23:12)
[2022-04-29 04:21] VITALS: BP 131/78
[2022-04-29 06:25] LABS: HEMATOCRIT 43.3 % (42.0-52.0); HEMOGLOBIN 13.8 g/dl (13.5-17.5); MEAN CORPUSCULAR HEMOGLOBIN 29.4 pg (27.0-33.0); MEAN CORPUSCULAR HGB CONC 31.9 g/dl (32.0-36.5); MEAN CORPUSCULAR VOLUME 92.3 fl (80.0-96.0); PLATELET COUNT, AUTOMATED 405 10^3/uL (150-450); RED BLOOD COUNT 4.69 10^6/uL (4.30-6.10); WHITE BLOOD COUNT 15.1 10^3/uL (4.0-10.0)
[2022-04-29] MEDS: MORPHINE 1MG/ML IN 0.9% NACL 100ML IV BAG IV PRN (06:42)
[2022-04-29 07:09] LABS: BLOOD UREA NITROGEN 22 MG/DL (7-18); CALCIUM LEVEL 8.5 MG/DL (8.8-10.2); CARBON DIOXIDE LEVEL 33 MEQ/L (21-32); CHLORIDE LEVEL 100 MEQ/L (98-107); GLOMERULAR FILTRATION RATE > 60.0 (>49); GLUCOSE, FASTING 226 MG/DL (70-100); POTASSIUM SERUM 5.1 MEQ/L (3.5-5.1); SODIUM LEVEL 137 MEQ/L (136-145)
[2022-04-29 08:07] VITALS: BP 107/54
[2022-04-29] MEDS: MOM 30ML SUSPENSION UDC PO SCH (08:27)
[2022-04-29] MEDS: GABAPENTIN 400MG CAP PO SCH ×3 (08:27→20:26)
[2022-04-29] MEDS: INSULIN LISPRO (NovoLOG) PER UNIT SC SCH ×4 (08:27→20:26)
[2022-04-29] MEDS: DOCUSATE SODIUM 100MG CAPSULE PO SCH ×2 (08:27→20:25)
[2022-04-29] MEDS: PANTOPRAZOLE 40MG TAB (PROTONIX) PO SCH (08:27)
[2022-04-29] MEDS: ATORVASTATIN 20 MG TAB PO SCH (08:27)
[2022-04-29] MEDS: atenoloL 50 MG TAB PO SCH ×2 (08:42→20:26)
[2022-04-29 12:02] VITALS: BP 123/69
[2022-04-29] MEDS ORDERED: FUROSEMIDE 100MG/10ML VIAL (J1940) IV ONE (12:30)
[2022-04-29] MEDS: NS 1,000 ML IV SCH (12:59)
[2022-04-29 16:09] VITALS: BP 107/72
[2022-04-29 20:00] VITALS: BP 133/78
[2022-04-29] MEDS: LEVEMIR (INSULIN DETEMIR) 1 UNITS/0.01ML SC SCH (20:25)
[2022-04-30] VITALS (8 sets, daily range): BP systolic 102–128; BP diastolic 58–72
[2022-04-30] MEDS: KETOROLAC 30 MG/ML 1ML VIAL IV SCH ×4 (05:23→23:49)
[2022-04-30 07:43] LABS: HEMATOCRIT 42.2 % (42.0-52.0); HEMOGLOBIN 13.4 g/dl (13.5-17.5); MEAN CORPUSCULAR HEMOGLOBIN 29.6 pg (27.0-33.0); MEAN CORPUSCULAR HGB CONC 31.8 g/dl (32.0-36.5); MEAN CORPUSCULAR VOLUME 93.2 fl (80.0-96.0); PLATELET COUNT, AUTOMATED 363 10^3/uL (150-450); RED BLOOD COUNT 4.53 10^6/uL (4.30-6.10); WHITE BLOOD COUNT 14.6 10^3/uL (4.0-10.0)
[2022-04-30 08:06] LABS: BLOOD UREA NITROGEN 19 MG/DL (7-18); CALCIUM LEVEL 8.4 MG/DL (8.8-10.2); CARBON DIOXIDE LEVEL 31 MEQ/L (21-32); CHLORIDE LEVEL 102 MEQ/L (98-107); CREATININE FOR GFR 0.86 MG/DL (0.70-1.30); GLOMERULAR FILTRATION RATE > 60.0 (>49); GLUCOSE, FASTING 207 MG/DL (70-100); POTASSIUM SERUM 5.3 MEQ/L (3.5-5.1); SODIUM LEVEL 136 MEQ/L (136-145)
[2022-04-30] MEDS: MOM 30ML SUSPENSION UDC PO SCH (08:57)
[2022-04-30] MEDS: GABAPENTIN 400MG CAP PO SCH ×3 (08:58→20:34)
[2022-04-30] MEDS: ATORVASTATIN 20 MG TAB PO SCH (08:58)
[2022-04-30] MEDS: DOCUSATE SODIUM 100MG CAPSULE PO SCH ×2 (08:58→20:34)
[2022-04-30] MEDS: atenoloL 50 MG TAB PO SCH ×2 (08:58→18:19)
[2022-04-30] MEDS: PANTOPRAZOLE 40MG TAB (PROTONIX) PO SCH (08:58)
[2022-04-30] MEDS: MORPHINE 1MG/ML IN 0.9% NACL 100ML IV BAG IV PRN (08:59)
[2022-04-30] MEDS: INSULIN LISPRO (NovoLOG) PER UNIT SC SCH ×4 (08:59→20:26)
[2022-04-30] MEDS: NS 1,000 ML IV SCH (09:00)
[2022-04-30 10:46] LABS: LDH LACTATE DEHYDROGENASE 356 U/L (87-241)
[2022-04-30] MEDS ORDERED: FUROSEMIDE 100MG/10ML VIAL (J1940) IV ONE (12:00)
[2022-04-30] MEDS ORDERED: LIDOCAINE 1% MDV 20ML VIAL SC ONE (12:10)
[2022-04-30] MEDS ORDERED: LIDOCAINE 1% MDV 20ML VIAL As Ordered ONE (14:04)
[2022-04-30 15:49] LABS: PH BODY FLUID 7.625 UNITS (NOT ESTABLISHED); SOURCE, BODY FLUID pH PLEURAL
[2022-04-30 16:01] LABS: SOURCE, BODY FLUID PLEURAL
[2022-04-30 16:02] LABS: APPEARANCE, BODY FLUID TURBID (CLEAR); PLEURAL FL COLOR RED (COLORLESS)
[2022-04-30 16:25] LABS: AMYLASE, BODY FLUID 48 U/L (NOT ESTABLISHED); CHOLESTEROL, BODY FLUID < 50 MG/DL (NOT ESTABLISHED); LDH, BODY FLUID 787 U/L (NOT ESTABLISHED); SOURCE, BODY FLUID ALBUMIN PLEURAL; SOURCE, BODY FLUID AMYLASE PLEURAL; SOURCE, BODY FLUID CHOL PLEURAL; SOURCE, BODY FLUID GLUCOSE PLEURAL; SOURCE, BODY FLUID LDH PLEURAL; SOURCE, BODY FLUID TOT PROTEIN PLEURAL; SOURCE, BODY FLUID TRIG PLEURAL; TOTAL PROTEIN, BODY FLUID 3.1 G/DL (NOT ESTABLISHED); TRIGLYCERIDE, BODY FLUID 35 MG/DL (NOT ESTABLISHED)
[2022-04-30 17:45] LABS: BLOOD UREA NITROGEN 19 MG/DL (7-18); CALCIUM LEVEL 8.2 MG/DL (8.8-10.2); CARBON DIOXIDE LEVEL 33 MEQ/L (21-32); CHLORIDE LEVEL 102 MEQ/L (98-107); CREATININE FOR GFR 0.95 MG/DL (0.70-1.30); GLOMERULAR FILTRATION RATE > 60.0 (>49); GLUCOSE, FASTING 235 MG/DL (70-100); POTASSIUM SERUM 4.2 MEQ/L (3.5-5.1); SODIUM LEVEL 138 MEQ/L (136-145)
[2022-04-30] MEDS: LEVEMIR (INSULIN DETEMIR) 1 UNITS/0.01ML SC SCH (20:35)
[2022-05-01] VITALS (15 sets, daily range): BP systolic 90–122; BP diastolic 52–79
[2022-05-01 04:24] LABS: HEMATOCRIT 40.1 % (42.0-52.0); HEMOGLOBIN 12.6 g/dl (13.5-17.5); MEAN CORPUSCULAR HEMOGLOBIN 29.2 pg (27.0-33.0); MEAN CORPUSCULAR HGB CONC 31.4 g/dl (32.0-36.5); MEAN CORPUSCULAR VOLUME 92.8 fl (80.0-96.0); PLATELET COUNT, AUTOMATED 319 10^3/uL (150-450); RED BLOOD COUNT 4.32 10^6/uL (4.30-6.10); WHITE BLOOD COUNT 17.9 10^3/uL (4.0-10.0)
[2022-05-01 05:01] LABS: BLOOD UREA NITROGEN 23 MG/DL (7-18); CARBON DIOXIDE LEVEL 30 MEQ/L (21-32); CHLORIDE LEVEL 102 MEQ/L (98-107); CREATININE FOR GFR 0.98 MG/DL (0.70-1.30); GLOMERULAR FILTRATION RATE > 60.0 (>49); GLUCOSE, FASTING 303 MG/DL (70-100); POTASSIUM SERUM 5.1 MEQ/L (3.5-5.1); SODIUM LEVEL 136 MEQ/L (136-145)
[2022-05-01 05:02] LABS: CALCIUM LEVEL 7.8 MG/DL (8.8-10.2)
[2022-05-01] MEDS: KETOROLAC 30 MG/ML 1ML VIAL IV SCH ×3 (05:47→17:26)
[2022-05-01] MEDS: DOCUSATE SODIUM 100MG CAPSULE PO SCH ×2 (08:08→20:47)
[2022-05-01] MEDS: atenoloL 50 MG TAB PO SCH ×2 (08:08→20:48)
[2022-05-01] MEDS: GABAPENTIN 400MG CAP PO SCH ×3 (08:08→20:48)
[2022-05-01] MEDS: MOM 30ML SUSPENSION UDC PO SCH (08:08)
[2022-05-01] MEDS: PANTOPRAZOLE 40MG TAB (PROTONIX) PO SCH (08:09)
[2022-05-01] MEDS: ATORVASTATIN 20 MG TAB PO SCH (08:09)
[2022-05-01] MEDS: INSULIN LISPRO (NovoLOG) PER UNIT SC SCH ×4 (08:10→20:49)
[2022-05-01] MEDS: MORPHINE 1MG/ML IN 0.9% NACL 100ML IV BAG IV PRN (09:14)
[2022-05-01] MEDS: NS 1,000 ML IV SCH (12:20)
[2022-05-01] MEDS ORDERED: DIGOXIN INJ 0.5 MG/2 ML AMP (J1160) IV STA (12:39)
[2022-05-01] MEDS ORDERED: DIGOXIN INJ 0.5 MG/2 ML AMP (J1160) IV ONE (17:00)
[2022-05-01] MEDS: LEVEMIR (INSULIN DETEMIR) 1 UNITS/0.01ML SC SCH (20:49)
[2022-05-02] VITALS (11 sets, daily range): BP systolic 91–125; BP diastolic 54–86
[2022-05-02] MEDS: KETOROLAC 30 MG/ML 1ML VIAL IV SCH ×2 (00:44→05:55)
[2022-05-02 05:03] LABS: HEMATOCRIT 37.6 % (42.0-52.0); HEMOGLOBIN 12.2 g/dl (13.5-17.5); MEAN CORPUSCULAR HEMOGLOBIN 30.3 pg (27.0-33.0); MEAN CORPUSCULAR HGB CONC 32.4 g/dl (32.0-36.5); MEAN CORPUSCULAR VOLUME 93.5 fl (80.0-96.0); PLATELET COUNT, AUTOMATED 274 10^3/uL (150-450); RED BLOOD COUNT 4.02 10^6/uL (4.30-6.10); WHITE BLOOD COUNT 19.2 10^3/uL (4.0-10.0)
[2022-05-02 05:47] LABS: BLOOD UREA NITROGEN 20 MG/DL (7-18); CARBON DIOXIDE LEVEL 30 MEQ/L (21-32); CHLORIDE LEVEL 103 MEQ/L (98-107); CREATININE FOR GFR 0.77 MG/DL (0.70-1.30); DIGOXIN LEVEL 0.9 NG/ML (0.5-2.0); GLOMERULAR FILTRATION RATE > 60.0 (>49); GLUCOSE, FASTING 233 MG/DL (70-100); POTASSIUM SERUM 4.7 MEQ/L (3.5-5.1); SODIUM LEVEL 137 MEQ/L (136-145)
[2022-05-02] MEDS ORDERED: LEVEMIR (INSULIN DETEMIR) 1 UNITS/0.01ML SC ONE (08:00)
[2022-05-02] MEDS: ATORVASTATIN 20 MG TAB PO SCH (08:31)
[2022-05-02] MEDS: MOM 30ML SUSPENSION UDC PO SCH (08:31)
[2022-05-02] MEDS: GABAPENTIN 400MG CAP PO SCH ×3 (08:31→20:39)
[2022-05-02] MEDS: atenoloL 50 MG TAB PO SCH ×2 (08:32→20:38)
[2022-05-02] MEDS: PANTOPRAZOLE 40MG TAB (PROTONIX) PO SCH (08:32)
[2022-05-02] MEDS: DIGOXIN 0.125 MG TAB PO SCH (08:32)
[2022-05-02] MEDS: DOCUSATE SODIUM 100MG CAPSULE PO SCH ×2 (08:32→20:38)
[2022-05-02] MEDS: INSULIN LISPRO (NovoLOG) PER UNIT SC SCH ×4 (08:33→20:38)
[2022-05-02] MEDS: MORPHINE 1MG/ML IN 0.9% NACL 100ML IV BAG IV PRN (08:34)
[2022-05-02 09:06] LABS: LDH LACTATE DEHYDROGENASE 298 U/L (87-241)
[2022-05-02] MEDS ORDERED: LIDOCAINE 1% MDV 20ML VIAL As Ordered ONE (12:54)
[2022-05-02] MEDS: NS 1,000 ML IV SCH (14:48)
[2022-05-02 14:58] LABS: APPEARANCE, BODY FLUID TURBID (CLEAR); PLEURAL FL COLOR RED (COLORLESS); SOURCE, BODY FLUID PLEURAL
[2022-05-02 15:36] LABS: SOURCE, BODY FLUID ALBUMIN PLEURAL
[2022-05-02 15:41] LABS: AMYLASE, BODY FLUID 25 U/L (NOT ESTABLISHED); CHOLESTEROL, BODY FLUID < 50 MG/DL (NOT ESTABLISHED); LDH, BODY FLUID 408 U/L (NOT ESTABLISHED); SOURCE, BODY FLUID AMYLASE PLEURAL; SOURCE, BODY FLUID CHOL PLEURAL; SOURCE, BODY FLUID GLUCOSE PLEURAL; SOURCE, BODY FLUID LDH PLEURAL; SOURCE, BODY FLUID TOT PROTEIN PLEURAL; SOURCE, BODY FLUID TRIG PLEURAL; TOTAL PROTEIN, BODY FLUID 2.7 G/DL (NOT ESTABLISHED); TRIGLYCERIDE, BODY FLUID 21 MG/DL (NOT ESTABLISHED)
[2022-05-02 15:50] LABS: PH BODY FLUID 7.664 UNITS (NOT ESTABLISHED); SOURCE, BODY FLUID pH PLEURAL
[2022-05-02] MEDS ORDERED: KETOROLAC 30 MG/ML 1ML VIAL IV ONE (18:30)
[2022-05-02] MEDS ORDERED: LEVEMIR (INSULIN DETEMIR) 1 UNITS/0.01ML SC SCH ×2 (21:00)
[2022-05-03] VITALS: BP 122/57
[2022-05-03] MEDS: KETOROLAC 30 MG/ML 1ML VIAL IV SCH ×4 (00:10→18:35)
[2022-05-03 04:00] VITALS: BP 109/62
[2022-05-03 05:33] LABS: HEMATOCRIT 38.4 % (42.0-52.0); HEMOGLOBIN 12.1 g/dl (13.5-17.5); MEAN CORPUSCULAR HEMOGLOBIN 29.5 pg (27.0-33.0); MEAN CORPUSCULAR HGB CONC 31.5 g/dl (32.0-36.5); MEAN CORPUSCULAR VOLUME 93.7 fl (80.0-96.0); PLATELET COUNT, AUTOMATED 299 10^3/uL (150-450); WHITE BLOOD COUNT 17.3 10^3/uL (4.0-10.0)
[2022-05-03 06:04] LABS: BLOOD UREA NITROGEN 19 MG/DL (7-18); CALCIUM LEVEL 8.1 MG/DL (8.8-10.2); CARBON DIOXIDE LEVEL 31 MEQ/L (21-32); CHLORIDE LEVEL 103 MEQ/L (98-107); CREATININE FOR GFR 0.77 MG/DL (0.70-1.30); GLOMERULAR FILTRATION RATE > 60.0 (>49); GLUCOSE, FASTING 219 MG/DL (70-100); POTASSIUM SERUM 4.6 MEQ/L (3.5-5.1); SODIUM LEVEL 135 MEQ/L (136-145)
[2022-05-03] MEDS ORDERED: LEVEMIR (INSULIN DETEMIR) 1 UNITS/0.01ML SC ONE (07:35)
[2022-05-03 08:00] VITALS: BP 129/96
[2022-05-03] MEDS: ATORVASTATIN 20 MG TAB PO SCH (08:56)
[2022-05-03] MEDS: INSULIN LISPRO (NovoLOG) PER UNIT SC SCH ×4 (08:56→20:26)
[2022-05-03] MEDS: DOCUSATE SODIUM 100MG CAPSULE PO SCH ×2 (08:56→20:35)
[2022-05-03] MEDS: MOM 30ML SUSPENSION UDC PO SCH (08:57)
[2022-05-03] MEDS: atenoloL 50 MG TAB PO SCH ×2 (08:57→20:36)
[2022-05-03] MEDS: DIGOXIN 0.125 MG TAB PO SCH (08:57)
[2022-05-03] MEDS: PANTOPRAZOLE 40MG TAB (PROTONIX) PO SCH (08:57)
[2022-05-03] MEDS: GABAPENTIN 400MG CAP PO SCH ×3 (08:57→20:35)
[2022-05-03] MEDS ORDERED: EPIDURAL/PCA KEYS XX PRN (10:40)
[2022-05-03] MEDS: PERCOCET 5MG/325MG TAB PO PRN (11:30)
[2022-05-03] MEDS: NS 1,000 ML IV SCH (11:51)
[2022-05-03] MEDS: MORPHINE 1MG/ML IN 0.9% NACL 100ML IV BAG IV PRN (11:52)
[2022-05-03 12:00] VITALS: BP 112/57
[2022-05-03 16:00] VITALS: BP 118/66
[2022-05-03 20:00] VITALS: BP 133/67
[2022-05-03] MEDS: APIXABAN 5 MG TAB (ELIQUIS) PO SCH (20:35)
[2022-05-03] MEDS ORDERED: LEVEMIR (INSULIN DETEMIR) 1 UNITS/0.01ML SC SCH (21:00)
[2022-05-04] VITALS: BP 130/60
[2022-05-04] MEDS: KETOROLAC 30 MG/ML 1ML VIAL IV SCH ×4 (00:02→18:17)
[2022-05-04 04:00] VITALS: BP 125/73
[2022-05-04 05:28] LABS: BLOOD UREA NITROGEN 18 MG/DL (7-18); CARBON DIOXIDE LEVEL 30 MEQ/L (21-32); CHLORIDE LEVEL 104 MEQ/L (98-107); CREATININE FOR GFR 0.76 MG/DL (0.70-1.30); GLOMERULAR FILTRATION RATE > 60.0 (>49); GLUCOSE, FASTING 241 MG/DL (70-100); POTASSIUM SERUM 4.8 MEQ/L (3.5-5.1); SODIUM LEVEL 138 MEQ/L (136-145)
[2022-05-04] MEDS ORDERED: LEVEMIR (INSULIN DETEMIR) 1 UNITS/0.01ML SC ONE (07:20)
[2022-05-04 08:00] VITALS: BP 118/70
[2022-05-04] MEDS: PANTOPRAZOLE 40MG TAB (PROTONIX) PO SCH ×2 (08:29→20:56)
[2022-05-04] MEDS: DIGOXIN 0.125 MG TAB PO SCH (08:30)
[2022-05-04] MEDS: GABAPENTIN 400MG CAP PO SCH ×3 (08:30→20:55)
[2022-05-04] MEDS: ATORVASTATIN 20 MG TAB PO SCH (08:30)
[2022-05-04] MEDS: APIXABAN 5 MG TAB (ELIQUIS) PO SCH ×2 (08:30→20:56)
[2022-05-04] MEDS: atenoloL 50 MG TAB PO SCH ×2 (08:31→20:58)
[2022-05-04] MEDS: INSULIN LISPRO (NovoLOG) PER UNIT SC SCH ×4 (08:32→20:57)
[2022-05-04] MEDS: MOM 30ML SUSPENSION UDC PO SCH (08:33)
[2022-05-04] MEDS: DOCUSATE SODIUM 100MG CAPSULE PO SCH ×2 (08:33→20:55)
[2022-05-04] MEDS ORDERED: FUROSEMIDE 40MG/4ML VIAL (J1940) IV ONE (11:00)
[2022-05-04] MEDS: PERCOCET 5MG/325MG TAB PO PRN ×2 (11:25→16:01)
[2022-05-04 11:32] LABS: BASO % 0.2 % (0.0-1.0); EOS # 0.6 10^3/uL (0.0-0.5); EOS % 3.4 % (0.0-3.0); HEMATOCRIT 38.5 % (42.0-52.0); HEMOGLOBIN 11.9 g/dl (13.5-17.5); LYMPH # 1.8 10^3/uL (1.5-5.0); LYMPH % 10.7 % (24.0-44.0); MEAN CORPUSCULAR HEMOGLOBIN 29.5 pg (27.0-33.0); MEAN CORPUSCULAR HGB CONC 30.9 g/dl (32.0-36.5); MEAN CORPUSCULAR VOLUME 95.3 fl (80.0-96.0); MONO % 11.4 % (2.0-8.0); NEUTROPHILS # 12.1 10^3/uL (1.5-8.5); NEUTROPHILS % 73.6 % (36.0-66.0); PLATELET COUNT, AUTOMATED 317 10^3/uL (150-450); RED BLOOD COUNT 4.04 10^6/uL (4.30-6.10); WHITE BLOOD COUNT 16.4 10^3/uL (4.0-10.0)
[2022-05-04 12:00] LABS: MONO # 1.9 10^3/uL (0.0-0.8)
[2022-05-04 12:20] VITALS: BP 118/68
[2022-05-04] MEDS: NS 1,000 ML IV SCH (12:20)
[2022-05-04] MEDS: MORPHINE 1MG/ML IN 0.9% NACL 100ML IV BAG IV PRN (12:32)
[2022-05-04 16:10] VITALS: BP 114/62
[2022-05-04] MEDS: guaiFENesin 200 MG TAB PO PRN (18:17)
[2022-05-04] MEDS: SODIUM CHLORIDE 0.9% INJ 10 ML SYR IV SCH (18:18)
[2022-05-04 20:00] VITALS: BP 128/84
[2022-05-04] MEDS ORDERED: LEVEMIR (INSULIN DETEMIR) 1 UNITS/0.01ML SC SCH (21:00)
[2022-05-05] VITALS (40 sets, daily range): BP systolic 92–132; BP diastolic 51–98
[2022-05-05] MEDS: KETOROLAC 30 MG/ML 1ML VIAL IV SCH ×4 (00:39→17:47)
[2022-05-05] MEDS: SODIUM CHLORIDE 0.9% INJ 10 ML SYR IV SCH ×2 (05:41→17:45)
[2022-05-05 05:53] LABS: BASO % 0.3 % (0.0-1.0); EOS # 0.5 10^3/uL (0.0-0.5); EOS % 4.2 % (0.0-3.0); HEMATOCRIT 35.2 % (42.0-52.0); HEMOGLOBIN 11.2 g/dl (13.5-17.5); LYMPH # 1.6 10^3/uL (1.5-5.0); LYMPH % 12.6 % (24.0-44.0); MEAN CORPUSCULAR HEMOGLOBIN 29.2 pg (27.0-33.0); MEAN CORPUSCULAR HGB CONC 31.8 g/dl (32.0-36.5); MEAN CORPUSCULAR VOLUME 91.9 fl (80.0-96.0); MONO % 12.5 % (2.0-8.0); NEUTROPHILS % 69.7 % (36.0-66.0); PLATELET COUNT, AUTOMATED 293 10^3/uL (150-450); RED BLOOD COUNT 3.83 10^6/uL (4.30-6.10)
[2022-05-05 05:54] LABS: MONO # 1.6 10^3/uL (0.0-0.8)
[2022-05-05 06:40] LABS: BLOOD UREA NITROGEN 17 MG/DL (7-18); CALCIUM LEVEL 7.6 MG/DL (8.8-10.2); CARBON DIOXIDE LEVEL 30 MEQ/L (21-32); CHLORIDE LEVEL 105 MEQ/L (98-107); CREATININE FOR GFR 0.68 MG/DL (0.70-1.30); DIGOXIN LEVEL 0.5 NG/ML (0.5-2.0); GLOMERULAR FILTRATION RATE > 60.0 (>49); GLUCOSE, FASTING 200 MG/DL (70-100); POTASSIUM SERUM 4.4 MEQ/L (3.5-5.1); SODIUM LEVEL 138 MEQ/L (136-145)
[2022-05-05] MEDS ORDERED: LEVEMIR (INSULIN DETEMIR) 1 UNITS/0.01ML SC ONE (08:00)
[2022-05-05] MEDS: MOM 30ML SUSPENSION UDC PO SCH (09:00)
[2022-05-05] MEDS: INSULIN LISPRO (NovoLOG) PER UNIT SC SCH ×4 (09:05→21:21)
[2022-05-05] MEDS: PANTOPRAZOLE 40MG TAB (PROTONIX) PO SCH ×2 (09:06→21:19)
[2022-05-05] MEDS: ATORVASTATIN 20 MG TAB PO SCH (09:06)
[2022-05-05] MEDS: GABAPENTIN 400MG CAP PO SCH ×3 (09:07→21:19)
[2022-05-05] MEDS: DOCUSATE SODIUM 100MG CAPSULE PO SCH ×2 (09:07→21:19)
[2022-05-05] MEDS: atenoloL 50 MG TAB PO SCH ×2 (09:07→21:21)
[2022-05-05] MEDS: DIGOXIN 0.25 MG TAB PO SCH (09:08)
[2022-05-05] MEDS: APIXABAN 5 MG TAB (ELIQUIS) PO SCH (09:08)
[2022-05-05] MEDS ORDERED: flumazeniL 0.5 MG/5 ML VIAL IV PRN (09:20)
[2022-05-05] MEDS ORDERED: MIDAZOLAM INJ 2MG/2ML VIAL (J2250 PER 1MG) IV ONE ×3 (09:30→10:02)
[2022-05-05] MEDS: MIDAZOLAM 5MG 5ML VIAL (FOR CHEST TUBE INSERTIONS) IV PRN ×4 (09:38→10:02)
[2022-05-05] MEDS ORDERED: MIDAZOLAM 5MG/ML 1ML VIAL (J2250 PER 1MG) IM ONE (09:40)
[2022-05-05] MEDS: LIDOCAINE 1% MDV 20ML VIAL SC PRN ×2 (09:43→10:10)
[2022-05-05] MEDS ORDERED: LIDOCAINE 1% MDV 20ML VIAL SC STA (10:08)
[2022-05-05] MEDS ORDERED: MIDAZOLAM 5MG 5ML VIAL (FOR CHEST TUBE INSERTIONS) IV PRN (11:15)
[2022-05-05 11:17] LABS: SOURCE, BODY FLUID PLEURAL
[2022-05-05 11:18] LABS: APPEARANCE, BODY FLUID TURBID (CLEAR); PLEURAL FL COLOR ORANGE (COLORLESS)
[2022-05-05 11:19] LABS: LDH LACTATE DEHYDROGENASE 243 U/L (87-241)
[2022-05-05 11:21] LABS: PH BODY FLUID 7.781 UNITS (NOT ESTABLISHED); SOURCE, BODY FLUID pH PLEURAL
[2022-05-05 12:13] LABS: AMYLASE, BODY FLUID 23 U/L (NOT ESTABLISHED); CHOLESTEROL, BODY FLUID < 50 MG/DL (NOT ESTABLISHED); LDH, BODY FLUID 597 U/L (NOT ESTABLISHED); SOURCE, BODY FLUID ALBUMIN PLEURAL; SOURCE, BODY FLUID AMYLASE PLEURAL; SOURCE, BODY FLUID CHOL PLEURAL; SOURCE, BODY FLUID GLUCOSE PLEURAL; SOURCE, BODY FLUID LDH PLEURAL; SOURCE, BODY FLUID TOT PROTEIN PLEURAL; SOURCE, BODY FLUID TRIG PLEURAL; TOTAL PROTEIN, BODY FLUID 3.2 G/DL (NOT ESTABLISHED); TRIGLYCERIDE, BODY FLUID 36 MG/DL (NOT ESTABLISHED)
[2022-05-05] MEDS: MORPHINE 1MG/ML IN 0.9% NACL 100ML IV BAG IV PRN (12:40)
[2022-05-05] MEDS: NS 1,000 ML IV SCH (13:13)
[2022-05-05] MEDS: PERCOCET 5MG/325MG TAB PO PRN (14:59)
[2022-05-05] MEDS ORDERED: LEVEMIR (INSULIN DETEMIR) 1 UNITS/0.01ML SC SCH (21:00)
[2022-05-06] VITALS: BP 116/64
[2022-05-06] MEDS: KETOROLAC 30 MG/ML 1ML VIAL IV SCH ×5 (00:21→23:42)
[2022-05-06 04:00] VITALS: BP 102/56
[2022-05-06] MEDS: SODIUM CHLORIDE 0.9% INJ 10 ML SYR IV SCH ×2 (06:17→17:32)
[2022-05-06 06:41] LABS: BASO # 0.1 10^3/uL (0.0-0.2); BASO % 0.4 % (0.0-1.0); EOS # 0.5 10^3/uL (0.0-0.5); EOS % 4.3 % (0.0-3.0); HEMATOCRIT 34.1 % (42.0-52.0); HEMOGLOBIN 10.9 g/dl (13.5-17.5); LYMPH # 1.6 10^3/uL (1.5-5.0); LYMPH % 14.6 % (24.0-44.0); MEAN CORPUSCULAR HEMOGLOBIN 29.5 pg (27.0-33.0); MEAN CORPUSCULAR VOLUME 92.2 fl (80.0-96.0); MONO # 1.3 10^3/uL (0.0-0.8); MONO % 11.2 % (2.0-8.0); NEUTROPHILS # 7.8 10^3/uL (1.5-8.5); PLATELET COUNT, AUTOMATED 309 10^3/uL (150-450); WHITE BLOOD COUNT 11.3 10^3/uL (4.0-10.0)
[2022-05-06 07:20] LABS: BLOOD UREA NITROGEN 18 MG/DL (7-18); CALCIUM LEVEL 7.9 MG/DL (8.8-10.2); CARBON DIOXIDE LEVEL 29 MEQ/L (21-32); CHLORIDE LEVEL 105 MEQ/L (98-107); CREATININE FOR GFR 0.73 MG/DL (0.70-1.30); GLOMERULAR FILTRATION RATE > 60.0 (>49); GLUCOSE, FASTING 185 MG/DL (70-100); POTASSIUM SERUM 4.3 MEQ/L (3.5-5.1); SODIUM LEVEL 139 MEQ/L (136-145)
[2022-05-06 07:47] VITALS: BP 124/63
[2022-05-06] MEDS: PANTOPRAZOLE 40MG TAB (PROTONIX) PO SCH ×2 (09:42→20:33)
[2022-05-06] MEDS: MOM 30ML SUSPENSION UDC PO SCH (09:42)
[2022-05-06] MEDS: INSULIN LISPRO (NovoLOG) PER UNIT SC SCH ×4 (09:42→20:34)
[2022-05-06] MEDS: DOCUSATE SODIUM 100MG CAPSULE PO SCH ×2 (09:43→20:33)
[2022-05-06] MEDS: atenoloL 50 MG TAB PO SCH ×2 (09:43→20:33)
[2022-05-06] MEDS: ATORVASTATIN 20 MG TAB PO SCH (09:43)
[2022-05-06] MEDS: APIXABAN 5 MG TAB (ELIQUIS) PO SCH ×2 (09:43→20:33)
[2022-05-06] MEDS: GABAPENTIN 400MG CAP PO SCH ×3 (09:43→20:33)
[2022-05-06] MEDS: DIGOXIN 0.25 MG TAB PO SCH (09:44)
[2022-05-06] MEDS: NS 1,000 ML IV SCH (09:52)
[2022-05-06] MEDS ORDERED: ALTEPLASE 2MG/2ML VIAL XX ONE (11:00)
[2022-05-06 12:00] VITALS: BP 132/76
[2022-05-06] MEDS: PERCOCET 5MG/325MG TAB PO PRN (14:46)
[2022-05-06 16:00] VITALS: BP 145/77
[2022-05-06] MEDS ORDERED: MORPHINE 4 MG/ML 1ML VIAL/SYRINGE IV ONE (16:20)
[2022-05-06 20:00] VITALS: BP 146/85
[2022-05-06] MEDS ORDERED: LEVEMIR (INSULIN DETEMIR) 1 UNITS/0.01ML SC SCH (21:00)
[2022-05-06] MEDS: SODIUM CHLORIDE 0.9% INJ 10 ML SYR IV PRN (23:42)
[2022-05-07] VITALS: BP 118/66
[2022-05-07 04:00] VITALS: BP 127/77
[2022-05-07 04:41] LABS: BASO # 0.1 10^3/uL (0.0-0.2); BASO % 0.5 % (0.0-1.0); EOS # 0.5 10^3/uL (0.0-0.5); EOS % 4.3 % (0.0-3.0); HEMOGLOBIN 11.5 g/dl (13.5-17.5); LYMPH # 1.8 10^3/uL (1.5-5.0); LYMPH % 15.2 % (24.0-44.0); MEAN CORPUSCULAR HGB CONC 31.1 g/dl (32.0-36.5); MEAN CORPUSCULAR VOLUME 93.2 fl (80.0-96.0); MONO # 1.3 10^3/uL (0.0-0.8); MONO % 11.4 % (2.0-8.0); NEUTROPHILS # 7.9 10^3/uL (1.5-8.5); NEUTROPHILS % 67.9 % (36.0-66.0); PLATELET COUNT, AUTOMATED 369 10^3/uL (150-450); RED BLOOD COUNT 3.97 10^6/uL (4.30-6.10); WHITE BLOOD COUNT 11.6 10^3/uL (4.0-10.0)
[2022-05-07 05:09] LABS: BLOOD UREA NITROGEN 16 MG/DL (7-18); CALCIUM LEVEL 8.1 MG/DL (8.8-10.2); CARBON DIOXIDE LEVEL 30 MEQ/L (21-32); CHLORIDE LEVEL 104 MEQ/L (98-107); CREATININE FOR GFR 0.68 MG/DL (0.70-1.30); GLOMERULAR FILTRATION RATE > 60.0 (>49); GLUCOSE, FASTING 247 MG/DL (70-100); POTASSIUM SERUM 4.8 MEQ/L (3.5-5.1); SODIUM LEVEL 137 MEQ/L (136-145)
[2022-05-07] MEDS: KETOROLAC 30 MG/ML 1ML VIAL IV SCH ×4 (05:20→23:10)
[2022-05-07] MEDS: SODIUM CHLORIDE 0.9% INJ 10 ML SYR IV PRN ×2 (05:21→23:13)
[2022-05-07] MEDS: SODIUM CHLORIDE 0.9% INJ 10 ML SYR IV SCH ×2 (06:00→16:53)
[2022-05-07 08:07] VITALS: BP 139/73
[2022-05-07] MEDS: ATORVASTATIN 20 MG TAB PO SCH (09:48)
[2022-05-07] MEDS: PANTOPRAZOLE 40MG TAB (PROTONIX) PO SCH ×2 (09:49→20:39)
[2022-05-07] MEDS: MOM 30ML SUSPENSION UDC PO SCH (09:49)
[2022-05-07] MEDS: DIGOXIN 0.25 MG TAB PO SCH (09:49)
[2022-05-07] MEDS: APIXABAN 5 MG TAB (ELIQUIS) PO SCH ×2 (09:49→20:38)
[2022-05-07] MEDS: GABAPENTIN 400MG CAP PO SCH ×3 (09:49→20:38)
[2022-05-07] MEDS: DOCUSATE SODIUM 100MG CAPSULE PO SCH ×2 (09:49→20:38)
[2022-05-07] MEDS: atenoloL 50 MG TAB PO SCH ×2 (09:51→20:41)
[2022-05-07] MEDS: PERCOCET 5MG/325MG TAB PO PRN ×2 (09:51→16:52)
[2022-05-07] MEDS: LEVEMIR (INSULIN DETEMIR) 1 UNITS/0.01ML SC SCH ×2 (09:52→20:39)
[2022-05-07] MEDS: INSULIN LISPRO (NovoLOG) PER UNIT SC SCH ×4 (09:52→20:33)
[2022-05-07] MEDS ORDERED: FUROSEMIDE 40MG/4ML VIAL (J1940) IV ONE (11:35)
[2022-05-07 12:00] VITALS: BP 141/82
[2022-05-07] MEDS: NS 1,000 ML IV SCH (12:15)
[2022-05-07 16:00] VITALS: BP 127/68
[2022-05-07] MEDS: MORPHINE 1MG/ML IN 0.9% NACL 100ML IV BAG IV PRN (16:51)
[2022-05-07] MEDS: guaiFENesin 200 MG TAB PO PRN (16:51)
[2022-05-07 20:00] VITALS: BP 122/76
[2022-05-08] VITALS: BP 121/76
[2022-05-08 04:00] VITALS: BP 123/67
[2022-05-08] MEDS: PERCOCET 5MG/325MG TAB PO PRN ×3 (04:30→13:35)
[2022-05-08] MEDS: SODIUM CHLORIDE 0.9% INJ 10 ML SYR IV SCH ×2 (05:26→17:52)
[2022-05-08] MEDS: DOCUSATE SODIUM 100MG CAPSULE PO SCH ×2 (08:00→21:38)
[2022-05-08] MEDS: MOM 30ML SUSPENSION UDC PO SCH (08:00)
[2022-05-08] MEDS: GABAPENTIN 400MG CAP PO SCH ×3 (08:00→21:39)
[2022-05-08] MEDS: LEVEMIR (INSULIN DETEMIR) 1 UNITS/0.01ML SC SCH ×2 (08:00→21:37)
[2022-05-08] MEDS: guaiFENesin 200 MG TAB PO PRN (08:01)
[2022-05-08] MEDS: APIXABAN 5 MG TAB (ELIQUIS) PO SCH ×2 (08:01→21:38)
[2022-05-08] MEDS: DIGOXIN 0.25 MG TAB PO SCH (08:01)
[2022-05-08] MEDS: PANTOPRAZOLE 40MG TAB (PROTONIX) PO SCH ×2 (08:02→21:38)
[2022-05-08] MEDS: ATORVASTATIN 20 MG TAB PO SCH (08:03)
[2022-05-08] MEDS: atenoloL 50 MG TAB PO SCH ×2 (08:03→21:39)
[2022-05-08] MEDS: INSULIN LISPRO (NovoLOG) PER UNIT SC SCH ×4 (08:07→21:38)
[2022-05-08 08:14] VITALS: BP 125/70
[2022-05-08] MEDS ORDERED: FUROSEMIDE 40MG/4ML VIAL (J1940) IV SCH (09:00)
[2022-05-08 09:21] LABS: BASO # 0.1 10^3/uL (0.0-0.2); BASO % 0.5 % (0.0-1.0); EOS # 0.8 10^3/uL (0.0-0.5); EOS % 6.4 % (0.0-3.0); HEMATOCRIT 41.8 % (42.0-52.0); HEMOGLOBIN 13.2 g/dl (13.5-17.5); LYMPH # 2.1 10^3/uL (1.5-5.0); LYMPH % 17.6 % (24.0-44.0); MEAN CORPUSCULAR HEMOGLOBIN 29.2 pg (27.0-33.0); MEAN CORPUSCULAR HGB CONC 31.6 g/dl (32.0-36.5); MEAN CORPUSCULAR VOLUME 92.5 fl (80.0-96.0); MONO % 8.5 % (2.0-8.0); NEUTROPHILS # 7.7 10^3/uL (1.5-8.5); NEUTROPHILS % 66.2 % (36.0-66.0); PLATELET COUNT, AUTOMATED 402 10^3/uL (150-450); RED BLOOD COUNT 4.52 10^6/uL (4.30-6.10); WHITE BLOOD COUNT 11.7 10^3/uL (4.0-10.0)
[2022-05-08 09:49] LABS: BLOOD UREA NITROGEN 17 MG/DL (7-18); CALCIUM LEVEL 8.8 MG/DL (8.8-10.2); CARBON DIOXIDE LEVEL 28 MEQ/L (21-32); CHLORIDE LEVEL 104 MEQ/L (98-107); CREATININE FOR GFR 0.75 MG/DL (0.70-1.30); GLOMERULAR FILTRATION RATE > 60.0 (>49); GLUCOSE, FASTING 169 MG/DL (70-100); POTASSIUM SERUM 4.9 MEQ/L (3.5-5.1); SODIUM LEVEL 136 MEQ/L (136-145)
[2022-05-08] MEDS: NS 1,000 ML IV SCH (11:19)
[2022-05-08 11:30] VITALS: BP 127/66
[2022-05-08 16:00] VITALS: BP 136/70
[2022-05-08] MEDS ORDERED: oxyCODONE 5MG TAB PO SCH (16:00)
[2022-05-08] MEDS ORDERED: PERCOCET 5MG/325MG TAB PO PRN ×2 (17:45)
[2022-05-08] MEDS: IBUPROFEN 400MG TAB PO SCH (17:47)
[2022-05-08] MEDS: MORPHINE 1MG/ML IN 0.9% NACL 100ML IV BAG IV PRN (17:53)
[2022-05-08 20:00] VITALS: BP 132/70
[2022-05-08] MEDS: oxyCODONE 5MG TAB PO SCH (21:38)
[2022-05-09] VITALS: BP 120/79
[2022-05-09] MEDS: IBUPROFEN 400MG TAB PO SCH ×3 (00:22→16:06)
[2022-05-09 04:00] VITALS: BP 113/60
[2022-05-09] MEDS: SODIUM CHLORIDE 0.9% INJ 10 ML SYR IV SCH ×2 (06:26→17:45)
[2022-05-09 06:46] LABS: BASO # 0.1 10^3/uL (0.0-0.2); BASO % 0.5 % (0.0-1.0); EOS # 0.7 10^3/uL (0.0-0.5); EOS % 6.9 % (0.0-3.0); HEMATOCRIT 37.2 % (42.0-52.0); HEMOGLOBIN 11.7 g/dl (13.5-17.5); LYMPH # 2.4 10^3/uL (1.5-5.0); LYMPH % 22.7 % (24.0-44.0); MEAN CORPUSCULAR HGB CONC 31.5 g/dl (32.0-36.5); MEAN CORPUSCULAR VOLUME 92.1 fl (80.0-96.0); MONO % 8.9 % (2.0-8.0); NEUTROPHILS # 6.4 10^3/uL (1.5-8.5); PLATELET COUNT, AUTOMATED 407 10^3/uL (150-450); RED BLOOD COUNT 4.04 10^6/uL (4.30-6.10); WHITE BLOOD COUNT 10.7 10^3/uL (4.0-10.0)
[2022-05-09 07:27] LABS: BLOOD UREA NITROGEN 15 MG/DL (7-18); CALCIUM LEVEL 8.3 MG/DL (8.8-10.2); CARBON DIOXIDE LEVEL 32 MEQ/L (21-32); CHLORIDE LEVEL 103 MEQ/L (98-107); CREATININE FOR GFR 0.64 MG/DL (0.70-1.30); GLOMERULAR FILTRATION RATE > 60.0 (>49); GLUCOSE, FASTING 229 MG/DL (70-100); POTASSIUM SERUM 4.9 MEQ/L (3.5-5.1); SODIUM LEVEL 138 MEQ/L (136-145)
[2022-05-09 07:51] VITALS: BP 103/79
[2022-05-09] MEDS: atenoloL 50 MG TAB PO SCH ×2 (08:57→22:00)
[2022-05-09] MEDS: MOM 30ML SUSPENSION UDC PO SCH (08:59)
[2022-05-09] MEDS: INSULIN LISPRO (NovoLOG) PER UNIT SC SCH ×4 (08:59→21:00)
[2022-05-09] MEDS: LEVEMIR (INSULIN DETEMIR) 1 UNITS/0.01ML SC SCH ×2 (08:59→22:02)
[2022-05-09] MEDS: DOCUSATE SODIUM 100MG CAPSULE PO SCH ×2 (09:00→21:59)
[2022-05-09] MEDS: PANTOPRAZOLE 40MG TAB (PROTONIX) PO SCH ×2 (09:00→21:59)
[2022-05-09] MEDS: ATORVASTATIN 20 MG TAB PO SCH (09:00)
[2022-05-09] MEDS: GABAPENTIN 400MG CAP PO SCH ×3 (09:00→22:00)
[2022-05-09] MEDS: APIXABAN 5 MG TAB (ELIQUIS) PO SCH (09:00)
[2022-05-09] MEDS: DIGOXIN 0.25 MG TAB PO SCH (09:01)
[2022-05-09] MEDS: oxyCODONE 5MG TAB PO SCH ×3 (09:01→22:01)
[2022-05-09] MEDS: FUROSEMIDE 40MG/4ML VIAL (J1940) IV SCH (09:02)
[2022-05-09] MEDS ORDERED: ATEN50TA2 PO (10:03)
[2022-05-09] MEDS ORDERED: COLA100C5 PO (10:03)
[2022-05-09] MEDS ORDERED: LASI40TA9 PO (10:03)
[2022-05-09] MEDS ORDERED: DIGO0.253 PO (10:03)
[2022-05-09] MEDS ORDERED: ELIQ5TAB PO (10:03)
[2022-05-09] MEDS ORDERED: METF10004 PO (10:10)
[2022-05-09] MEDS ORDERED: TRUL10IN SQ (10:10)
[2022-05-09] MEDS ORDERED: ATOR40TA75 PO (10:10)
[2022-05-09] MEDS ORDERED: BASA100I SQ (10:10)
[2022-05-09] MEDS ORDERED: GLIM4TAB5 PO (10:10)
[2022-05-09] MEDS ORDERED: OXYC-517 PO (10:10)
[2022-05-09 12:00] VITALS: BP 120/71
[2022-05-09] MEDS ORDERED: GLIMEPIRIDE 2 MG TAB PO SCH (12:00)
[2022-05-09 16:00] VITALS: BP 119/77
[2022-05-09 20:18] VITALS: BP 125/61
[2022-05-10] MEDS: IBUPROFEN 400MG TAB PO SCH ×2 (00:09→08:02)
[2022-05-10 00:31] VITALS: BP 131/63
[2022-05-10 04:07] VITALS: BP 104/61
[2022-05-10] MEDS: SODIUM CHLORIDE 0.9% INJ 10 ML SYR IV SCH (06:14)
[2022-05-10 06:25] LABS: BASO # 0.1 10^3/uL (0.0-0.2); BASO % 0.5 % (0.0-1.0); EOS # 0.6 10^3/uL (0.0-0.5); EOS % 5.9 % (0.0-3.0); HEMATOCRIT 36.6 % (42.0-52.0); HEMOGLOBIN 11.6 g/dl (13.5-17.5); LYMPH # 2.1 10^3/uL (1.5-5.0); LYMPH % 19.5 % (24.0-44.0); MEAN CORPUSCULAR HEMOGLOBIN 29.1 pg (27.0-33.0); MEAN CORPUSCULAR HGB CONC 31.7 g/dl (32.0-36.5); MONO # 0.9 10^3/uL (0.0-0.8); MONO % 8.7 % (2.0-8.0); NEUTROPHILS % 64.4 % (36.0-66.0); PLATELET COUNT, AUTOMATED 411 10^3/uL (150-450); RED BLOOD COUNT 3.98 10^6/uL (4.30-6.10); WHITE BLOOD COUNT 10.9 10^3/uL (4.0-10.0)
[2022-05-10 07:10] LABS: BLOOD UREA NITROGEN 13 MG/DL (7-18); CALCIUM LEVEL 8.2 MG/DL (8.8-10.2); CARBON DIOXIDE LEVEL 31 MEQ/L (21-32); CHLORIDE LEVEL 104 MEQ/L (98-107); DIGOXIN LEVEL 0.7 NG/ML (0.5-2.0); GLOMERULAR FILTRATION RATE > 60.0 (>49); GLUCOSE, FASTING 194 MG/DL (70-100); POTASSIUM SERUM 4.5 MEQ/L (3.5-5.1); SODIUM LEVEL 139 MEQ/L (136-145)
[2022-05-10 07:49] VITALS: BP 114/72
[2022-05-10] MEDS: GABAPENTIN 400MG CAP PO SCH (08:00)
[2022-05-10] MEDS: PANTOPRAZOLE 40MG TAB (PROTONIX) PO SCH (08:01)
[2022-05-10] MEDS: ATORVASTATIN 20 MG TAB PO SCH (08:01)
[2022-05-10] MEDS: oxyCODONE 5MG TAB PO SCH (08:02)
[2022-05-10 08:03] VITALS: BP 114/72
[2022-05-10] MEDS: atenoloL 50 MG TAB PO SCH (08:03)
[2022-05-10] MEDS: DIGOXIN 0.25 MG TAB PO SCH (08:03)
[2022-05-10] MEDS: DOCUSATE SODIUM 100MG CAPSULE PO SCH (08:03)
[2022-05-10] MEDS: INSULIN LISPRO (NovoLOG) PER UNIT SC SCH (08:04)
[2022-05-10] MEDS: FUROSEMIDE 40MG/4ML VIAL (J1940) IV SCH (08:04)
[2022-05-10] MEDS: LEVEMIR (INSULIN DETEMIR) 1 UNITS/0.01ML SC SCH (08:04)
[2022-05-10] MEDS: MOM 30ML SUSPENSION UDC PO SCH (08:04)
== END 2022-05-10 11:03 | disposition home or self-care (01) | DRG 135 ==
LOC: M ED 16:27 → EDBD 16:27 → M ED INP 17:41 → M PCU 19:35 → M ICU 20:32 → M 4MAIN 04-23 01:42 → M ICU 04-30 12:24 → M PCU 05-04 05:18
PROVIDERS: ADMIT Surgery; ATTEND Surgery
PROC: XW033E5 Introduction of Remdesivir Anti-infective into Peripheral Vein, Percutaneous Approach, New Technology Group 5 (ICD-10-PCS; 2022-04-21)
PROC: 3E0333Z Introduction of Anti-inflammatory into Peripheral Vein, Percutaneous Approach (ICD-10-PCS; 2022-04-21)
PROC: B246ZZZ Ultrasonography of Right and Left Heart (ICD-10-PCS; principal; 2022-04-23)
PROC: 02HV33Z Insertion of Infusion Device into Superior Vena Cava, Percutaneous Approach (ICD-10-PCS; 2022-04-30)
PROC: 0W9B30Z Drainage of Left Pleural Cavity with Drainage Device, Percutaneous Approach (ICD-10-PCS; 2022-04-30)
PROC: 0W9930Z Drainage of Right Pleural Cavity with Drainage Device, Percutaneous Approach (ICD-10-PCS; 2022-05-05)
PROC: 0W9930Z Drainage of Right Pleural Cavity with Drainage Device, Percutaneous Approach (ICD-10-PCS; 2022-05-06)
PROC: 3E0L3TZ Introduction of Destructive Agent into Pleural Cavity, Percutaneous Approach (ICD-10-PCS; 2022-05-06)
DX: S22.42XA Multiple fractures of ribs, left side, initial encounter for closed fracture (principal); U07.1 COVID-19; J96.01 Acute respiratory failure with hypoxia; I11.0 Hypertensive heart disease with heart failure; M62.82 Rhabdomyolysis; S27.0XXA Traumatic pneumothorax, initial encounter; Z68.41 Body mass index [BMI] 40.0-44.9, adult; I95.9 Hypotension, unspecified; T79.7XXA Traumatic subcutaneous emphysema, initial encounter; I50.32 Chronic diastolic (congestive) heart failure; I48.92 Unspecified atrial flutter; E66.01 Morbid (severe) obesity due to excess calories; J91.8 Pleural effusion in other conditions classified elsewhere; I48.91 Unspecified atrial fibrillation; I47.1 Supraventricular tachycardia; E11.9 Type 2 diabetes mellitus without complications; E78.5 Hyperlipidemia, unspecified; K21.9 Gastro-esophageal reflux disease without esophagitis; W14.XXXA Fall from tree, initial encounter; Y92.821 Forest as the place of occurrence of the external cause; Z79.2 Long term (current) use of antibiotics; Z79.84 Long term (current) use of oral hypoglycemic drugs; Z79.899 Other long term (current) drug therapy

== ENCOUNTER → 2022-05-23 | Outpatient (CLI) | payer SELFPAY ==
[~2022-05-23] MED LIST changes: +ATEN50TA2 PO; +BASA100I SQ; +COLA100C5 PO; +DIGO0.253 PO; +ELIQ5TAB PO; +FURO20TA2 PO; +GABA800T4 PO; +LASI40TA9 PO; +METF10004 PO; +OXYC-517 PO; +TRUL10IN SQ
[2022-05-23 18:27] LABS: BASO # 0.1 10^3/uL (0.0-0.2); BASO % 0.9 % (0.0-1.0); EOS # 0.2 10^3/uL (0.0-0.5); EOS % 1.4 % (0.0-3.0); HEMATOCRIT 44.5 % (42.0-52.0); HEMOGLOBIN 13.9 g/dl (13.5-17.5); LYMPH # 2.5 10^3/uL (1.5-5.0); LYMPH % 21.4 % (24.0-44.0); MEAN CORPUSCULAR HEMOGLOBIN 29.1 pg (27.0-33.0); MEAN CORPUSCULAR HGB CONC 31.2 g/dl (32.0-36.5); MEAN CORPUSCULAR VOLUME 93.1 fl (80.0-96.0); MONO % 8.7 % (2.0-8.0); NEUTROPHILS # 7.7 10^3/uL (1.5-8.5); NEUTROPHILS % 67.1 % (36.0-66.0); PLATELET COUNT, AUTOMATED 453 10^3/uL (150-450); RED BLOOD COUNT 4.78 10^6/uL (4.30-6.10); WHITE BLOOD COUNT 11.5 10^3/uL (4.0-10.0)
[2022-05-23 18:55] LABS: ALBUMIN 3.3 G/DL (3.2-5.2); ALT/SGPT 22 U/L (7.0-40); BILIRUBIN,TOTAL 0.3 MG/DL (0.3-1.2); BLOOD UREA NITROGEN 14 MG/DL (9-23); CARBON DIOXIDE LEVEL 28 MMOL/L (20-31); CHLORIDE LEVEL 105 MMOL/L (98-107); CHOLESTEROL LEVEL 114 MG/DL (<200); CHOLESTEROL RISK RATIO 2.42 (<5); CREATININE FOR GFR 0.82 MG/DL (0.70-1.30); FERRITIN 101.6 NG/ML (10.5-307.3); GLOMERULAR FILTRATION RATE > 60.0 (>49); GLUCOSE, FASTING 112 MG/DL (74-106); HDL CHOLESTEROL 47.1 MG/DL (>40); LDL CHOLESTEROL 50.7 MG/DL (<100); NON-HDL-C 67 MG/DL; POTASSIUM SERUM 4.8 MMOL/L (3.5-5.1); SODIUM LEVEL 140 MMOL/L (136-145); TOTAL PROTEIN 6.8 G/DL (5.7-8.2); TRIGLYCERIDES LEVEL 81 MG/DL (<150)
[2022-05-24 03:28] LABS: HEMOGLOBIN A1c 7.2 % (4.0-6.0)
== END ==
LOC: M PLALAB 12:08
PROVIDERS: ATTEND Family Medicine
DX: I11.0 Hypertensive heart disease with heart failure (principal); I50.32 Chronic diastolic (congestive) heart failure; D50.9 Iron deficiency anemia, unspecified; Z12.5 Encounter for screening for malignant neoplasm of prostate; M47.12 Other spondylosis with myelopathy, cervical region

== ENCOUNTER → 2022-06-13 | Outpatient (CLI) | payer SELFPAY | LOC: M PLAIMG 09:24 | PROVIDERS: ATTEND Thoracic Surgery (Cardiothoracic Vascular Surgery) | DX: J90 Pleural effusion, not elsewhere classified (principal); S22.42XA Multiple fractures of ribs, left side, initial encounter for closed fracture ==

== ENCOUNTER → 2022-09-30 | Outpatient (CLI) | payer MEDICAID, OTHER ==
[2022-09-30 12:29] LABS: BASO # 0.1 10^3/uL (0.0-0.2); BASO % 0.6 % (0.0-1.0); EOS # 0.5 10^3/uL (0.0-0.5); EOS % 3.6 % (0.0-3.0); HEMATOCRIT 51.7 % (42.0-52.0); HEMOGLOBIN 16.3 g/dl (13.5-17.5); LYMPH % 24.4 % (24.0-44.0); MEAN CORPUSCULAR HEMOGLOBIN 28.4 pg (27.0-33.0); MEAN CORPUSCULAR HGB CONC 31.5 g/dl (32.0-36.5); MEAN CORPUSCULAR VOLUME 90.2 fl (80.0-96.0); MONO # 1.3 10^3/uL (0.0-0.8); MONO % 10.1 % (2.0-8.0); NEUTROPHILS # 7.6 10^3/uL (1.5-8.5); NEUTROPHILS % 60.7 % (36.0-66.0); PLATELET COUNT, AUTOMATED 314 10^3/uL (150-450); RED BLOOD COUNT 5.73 10^6/uL (4.30-6.10); WHITE BLOOD COUNT 12.5 10^3/uL (4.0-10.0)
[2022-09-30 12:56] LABS: DIGOXIN LEVEL 0.6 NG/ML (0.8-2.0)
[2022-09-30 12:57] LABS: ALBUMIN 3.8 G/DL (3.2-5.2); ALKALINE PHOSPHATASE 96 U/L (46-116); ALT/SGPT 21 U/L (7.0-40); AST/SGOT 15 U/L (<34); BILIRUBIN,TOTAL 0.7 MG/DL (0.3-1.2); BLOOD UREA NITROGEN 19 MG/DL (9-23); CARBON DIOXIDE LEVEL 30 MMOL/L (20-31); CHLORIDE LEVEL 101 MMOL/L (98-107); CPK CREATINE PHOSPHOKINASE 102 U/L (46-171); CREATININE FOR GFR 0.71 MG/DL (0.70-1.30); GLOMERULAR FILTRATION RATE > 60.0 (>49); GLUCOSE, FASTING 150 MG/DL (74-106); POTASSIUM SERUM 4.6 MMOL/L (3.5-5.1); SODIUM LEVEL 137 MMOL/L (136-145); TOTAL PROTEIN 7.3 G/DL (5.7-8.2); VITAMIN B12 LEVEL 489 PG/ML (211-911)
[2022-09-30 12:58] LABS: FERRITIN 27.3 NG/ML (10.5-307.3); FREE T4 1.04 NG/DL (0.89-1.76); THYROID STIMULATING HORMONE 3.563 uIU/ML (0.55-4.78)
== END ==
LOC: M PLALAB 08:36
PROVIDERS: ATTEND Family Medicine
DX: D50.9 Iron deficiency anemia, unspecified (principal); E78.2 Mixed hyperlipidemia; I50.32 Chronic diastolic (congestive) heart failure; Z12.5 Encounter for screening for malignant neoplasm of prostate

== ENCOUNTER → 2022-12-23 | Outpatient (CLI) | payer OTHER | LOC: M PAIN 13:00 | PROVIDERS: ATTEND Nurse Practitioner Family | DX: M54.50 Low back pain, unspecified (principal); M47.816 Spondylosis without myelopathy or radiculopathy, lumbar region; E11.42 Type 2 diabetes mellitus with diabetic polyneuropathy; E78.2 Mixed hyperlipidemia; I48.92 Unspecified atrial flutter; E66.9 Obesity, unspecified; I10 Essential (primary) hypertension; F17.220 Nicotine dependence, chewing tobacco, uncomplicated; M47.812 Spondylosis without myelopathy or radiculopathy, cervical region; K21.9 Gastro-esophageal reflux disease without esophagitis; I27.20 Pulmonary hypertension, unspecified; I48.0 Paroxysmal atrial fibrillation; Z79.01 Long term (current) use of anticoagulants; Z79.84 Long term (current) use of oral hypoglycemic drugs; Z79.85 Long-term (current) use of injectable non-insulin antidiabetic drugs; Z79.899 Other long term (current) drug therapy; Z68.41 Body mass index [BMI] 40.0-44.9, adult ==

== ENCOUNTER → 2023-02-14 | Outpatient (CLI) | payer OTHER | LOC: M PAIN 11:15 | PROVIDERS: ATTEND Nurse Practitioner Family | DX: M54.50 Low back pain, unspecified (principal); M47.816 Spondylosis without myelopathy or radiculopathy, lumbar region; G89.29 Other chronic pain; E11.9 Type 2 diabetes mellitus without complications; I10 Essential (primary) hypertension; F17.220 Nicotine dependence, chewing tobacco, uncomplicated; E66.01 Morbid (severe) obesity due to excess calories; Z68.41 Body mass index [BMI] 40.0-44.9, adult; Z79.4 Long term (current) use of insulin; Z79.84 Long term (current) use of oral hypoglycemic drugs; Z79.85 Long-term (current) use of injectable non-insulin antidiabetic drugs; Z79.899 Other long term (current) drug therapy ==

== ENCOUNTER → 2023-03-11 | Outpatient (CLI) | payer OTHER ==
[2023-03-11 15:24] LABS: BASO # 0.1 10^3/uL (0.0-0.2); BASO % 0.6 % (0.0-1.0); EOS # 0.4 10^3/uL (0.0-0.5); EOS % 3.4 % (0.0-3.0); HEMOGLOBIN 15.7 g/dl (13.5-17.5); LYMPH # 3.3 10^3/uL (1.5-5.0); LYMPH % 25.4 % (24.0-44.0); MEAN CORPUSCULAR HGB CONC 32.7 g/dl (32.0-36.5); MEAN CORPUSCULAR VOLUME 91.6 fl (80.0-96.0); MONO # 1.3 10^3/uL (0.0-0.8); NEUTROPHILS # 7.8 10^3/uL (1.5-8.5); NEUTROPHILS % 60.2 % (36.0-66.0); PLATELET COUNT, AUTOMATED 279 10^3/uL (150-450); RED BLOOD COUNT 5.24 10^6/uL (4.30-6.10)
[2023-03-11 16:01] LABS: ALBUMIN 3.8 G/DL (3.2-5.2); ALKALINE PHOSPHATASE 89 U/L (46-116); ALT/SGPT 19 U/L (7.0-40); AST/SGOT 9 U/L (<34); BILIRUBIN,TOTAL 0.6 MG/DL (0.3-1.2); BLOOD UREA NITROGEN 19 MG/DL (9-23); CALCIUM LEVEL 9.3 MG/DL (8.3-10.6); CARBON DIOXIDE LEVEL 29 MMOL/L (20-31); CHLORIDE LEVEL 106 MMOL/L (98-107); CHOLESTEROL LEVEL 108 MG/DL (<200); CHOLESTEROL RISK RATIO 2.51 (<5); CREATININE FOR GFR 0.85 MG/DL (0.70-1.30); FERRITIN 31.1 NG/ML (10.5-307.3); GLOMERULAR FILTRATION RATE > 60.0 (>49); GLUCOSE, FASTING 100 MG/DL (74-106); LDL CHOLESTEROL 46.8 MG/DL (<100); POTASSIUM SERUM 5.2 MMOL/L (3.5-5.1); SODIUM LEVEL 139 MMOL/L (136-145); THYROGLOBULIN ANTIBODY < 15.0 U/ML (<60.0); THYROID PEROXIDASE ANTIBODY < 28.0 U/ML (<60.0); TOTAL PROTEIN 7.3 G/DL (5.7-8.2); TRIGLYCERIDES LEVEL 91 MG/DL (<150)
== END ==
LOC: M PLALAB 13:51
PROVIDERS: ATTEND Family Medicine
DX: D50.9 Iron deficiency anemia, unspecified (principal); I50.32 Chronic diastolic (congestive) heart failure; E78.2 Mixed hyperlipidemia

== ENCOUNTER 2023-03-28 07:05 | Day surgery (SDC) | payer OTHER ==
[~2023-03-28] VITALS: Ht 182.9 cm; Wt 133.4 kg
[~2023-03-28 07:05] MED LIST changes: +NS 1,000 ML IV ONE; +propofoL 200 MG/20 ML VIAL As Ordered ONE
[2023-03-28] MEDS ORDERED: propofoL 200 MG/20 ML VIAL As Ordered ONE ×3 (07:31→08:05)
[2023-03-28] MEDS ORDERED: GLYCOPYRROLATE INJ 0.2 MG/ML 2 ML VIAL As Ordered ONE (08:04)
[2023-03-28 08:22] VITALS: TEMP 97.4
[2023-03-28 08:44] VITALS: BP 151/66; O2SAT 96
== END 2023-03-28 08:55 | disposition home or self-care (01) ==
LOC: M OPP 07:05
PROVIDERS: ATTEND Internal Medicine Gastroenterology
DX: D12.5 Benign neoplasm of sigmoid colon (principal); D12.3 Benign neoplasm of transverse colon; D12.2 Benign neoplasm of ascending colon; R19.5 Other fecal abnormalities; Z80.0 Family history of malignant neoplasm of digestive organs; D10.9 Benign neoplasm of pharynx, unspecified; I10 Essential (primary) hypertension; R00.9 Unspecified abnormalities of heart beat; M54.2 Cervicalgia; F17.290 Nicotine dependence, other tobacco product, uncomplicated; F12.20 Cannabis dependence, uncomplicated; Z79.01 Long term (current) use of anticoagulants; Z79.4 Long term (current) use of insulin

== ENCOUNTER → 2023-06-02 | Outpatient (CLI) | payer OTHER ==
[~2023-06-02] MED LIST changes: +CYCL-707 PO; -NS 1,000 ML IV ONE; +VITA200016 PO; -propofoL 200 MG/20 ML VIAL As Ordered ONE
== END ==
LOC: M PAIN 10:15
PROVIDERS: ATTEND Nurse Practitioner Family
DX: M54.50 Low back pain, unspecified (principal); M47.816 Spondylosis without myelopathy or radiculopathy, lumbar region; M51.16 Intervertebral disc disorders with radiculopathy, lumbar region; G89.29 Other chronic pain; E11.42 Type 2 diabetes mellitus with diabetic polyneuropathy; K21.9 Gastro-esophageal reflux disease without esophagitis; F17.220 Nicotine dependence, chewing tobacco, uncomplicated; E78.5 Hyperlipidemia, unspecified; I48.92 Unspecified atrial flutter; E66.9 Obesity, unspecified; I10 Essential (primary) hypertension; M47.812 Spondylosis without myelopathy or radiculopathy, cervical region; I48.0 Paroxysmal atrial fibrillation; Z79.84 Long term (current) use of oral hypoglycemic drugs; Z79.01 Long term (current) use of anticoagulants; Z79.899 Other long term (current) drug therapy; Z68.41 Body mass index [BMI] 40.0-44.9, adult

== ENCOUNTER 2023-06-10 06:34 | Day surgery (SDC) | payer OTHER ==
[~2023-06-10] VITALS: Ht 182.9 cm; Wt 130.6 kg
[~2023-06-10 06:34] MED LIST changes: +NS 1,000 ML IV ONE
[2023-06-10] MEDS ORDERED: SIMETHICONE 40MG/0.6ML DROPS 30ML As Ordered ONE (06:54)
[2023-06-10] MEDS ORDERED: LIDOCAINE 2% 100MG/5ML SDV (FOR ANES.) As Ordered ONE (07:04)
[2023-06-10] MEDS ORDERED: propofoL 200 MG/20 ML VIAL As Ordered ONE (07:04)
[2023-06-10 08:20] VITALS: TEMP 97.2
[2023-06-10 08:40] VITALS: BP 112/58; O2SAT 98
== END 2023-06-10 08:58 | disposition home or self-care (01) ==
LOC: M OPP 06:34
PROVIDERS: ATTEND Internal Medicine Gastroenterology
DX: R19.5 Other fecal abnormalities (principal); Z86.010 Personal history of colon polyps; Z80.0 Family history of malignant neoplasm of digestive organs; D12.0 Benign neoplasm of cecum; F17.220 Nicotine dependence, chewing tobacco, uncomplicated; Z79.01 Long term (current) use of anticoagulants; Z79.02 Long term (current) use of antithrombotics/antiplatelets; Z79.84 Long term (current) use of oral hypoglycemic drugs; Z79.85 Long-term (current) use of injectable non-insulin antidiabetic drugs; Z79.891 Long term (current) use of opiate analgesic; Z79.899 Other long term (current) drug therapy; Z88.5 Allergy status to narcotic agent

== ENCOUNTER → 2023-06-25 | Outpatient (CLI) | payer OTHER ==
[~2023-06-25] MED LIST changes: -NS 1,000 ML IV ONE
== END ==
LOC: M PLAIMG 12:57
PROVIDERS: ATTEND Nurse Practitioner Family
DX: Z53.9 Procedure and treatment not carried out, unspecified reason (principal)

== ENCOUNTER → 2023-08-04 | Outpatient (CLI) | payer OTHER ==
[2023-08-04 18:55] LABS: PTH INTACT 67.4 PG/ML (18.5-88.0)
[2023-08-04 19:00] LABS: TOTAL 25(OH) VITAMIN D 53.7 NG/ML (20.0-100.0)
== END ==
LOC: M PLALAB 15:08
PROVIDERS: ATTEND Family Medicine
DX: E55.9 Vitamin D deficiency, unspecified (principal)

== ENCOUNTER → 2023-09-10 | Outpatient (CLI) | payer OTHER ==
[2023-09-10 14:42] LABS: BASO # 0.1 10^3/uL (0.0-0.2); BASO % 0.6 % (0.0-1.0); EOS # 0.5 10^3/uL (0.0-0.5); EOS % 3.9 % (0.0-3.0); HEMATOCRIT 50.5 % (42.0-52.0); HEMOGLOBIN 16.3 g/dl (13.5-17.5); LYMPH # 2.7 10^3/uL (1.5-5.0); LYMPH % 21.7 % (24.0-44.0); MEAN CORPUSCULAR HEMOGLOBIN 29.4 pg (27.0-33.0); MEAN CORPUSCULAR HGB CONC 32.3 g/dl (32.0-36.5); MONO # 1.1 10^3/uL (0.0-0.8); MONO % 9.1 % (2.0-8.0); NEUTROPHILS # 8.1 10^3/uL (1.5-8.5); NEUTROPHILS % 64.3 % (36.0-66.0); PLATELET COUNT, AUTOMATED 283 10^3/uL (150-450); RED BLOOD COUNT 5.55 10^6/uL (4.30-6.10); WHITE BLOOD COUNT 12.6 10^3/uL (4.0-10.0)
[2023-09-10 15:19] LABS: ALBUMIN 3.7 G/DL (3.2-5.2); ALKALINE PHOSPHATASE 90 U/L (46-116); ALT/SGPT 18 U/L (7.0-40); AST/SGOT 10 U/L (<34); BILIRUBIN,TOTAL 0.3 MG/DL (0.3-1.2); BLOOD UREA NITROGEN 21 MG/DL (9-23); CALCIUM LEVEL 8.8 MG/DL (8.3-10.6); CARBON DIOXIDE LEVEL 29 MMOL/L (20-31); CHLORIDE LEVEL 102 MMOL/L (98-107); CREATININE FOR GFR 0.84 MG/DL (0.70-1.30); FERRITIN 32.9 NG/ML (10.5-307.3); GLOMERULAR FILTRATION RATE > 60.0 (>49); GLUCOSE, FASTING 145 MG/DL (74-106); MAGNESIUM LEVEL 1.7 MG/DL (1.8-2.4); POTASSIUM SERUM 4.7 MMOL/L (3.5-5.1); PSA SCREENING 0.61 NG/ML (< 4.00); SODIUM LEVEL 137 MMOL/L (136-145); THYROID STIMULATING HORMONE 2.988 uIU/ML (0.55-4.78); TOTAL PROTEIN 6.8 G/DL (5.7-8.2)
[2023-09-10 15:20] LABS: FREE T4 0.97 NG/DL (0.89-1.76)
== END ==
LOC: M PLALAB 11:52
PROVIDERS: ATTEND Family Medicine
DX: I50.32 Chronic diastolic (congestive) heart failure (principal); D50.9 Iron deficiency anemia, unspecified; Z12.5 Encounter for screening for malignant neoplasm of prostate; I48.0 Paroxysmal atrial fibrillation

== ENCOUNTER 2023-09-16 06:14 | Inpatient (IN) | payer OTHER ==
[~2023-09-16] VITALS: Ht 182.9 cm; Wt 137.6 kg
[~2023-09-16 06:14] MED LIST changes: +ceFAZolin SOD 2 GM in IV 1 EA IV ONE
[2023-09-16] MEDS ORDERED: MIRA3350 PO (06:46)
[2023-09-16] MEDS ORDERED: NEOM500T PO (06:46)
[2023-09-16] MEDS ORDERED: METR-265 PO (06:46)
[2023-09-16] MEDS ORDERED: MIDAZOLAM INJ 2MG/2ML VIAL As Ordered ONE (06:54)
[2023-09-16] MEDS ORDERED: HYDROmorphone HCL 2MG/ML 1ML VIAL As Ordered ONE (06:54)
[2023-09-16] MEDS ORDERED: LR 1,000 ML IV SCH ×2 (06:55→12:20)
[2023-09-16] MEDS ORDERED: propofoL 200 MG/20 ML VIAL As Ordered ONE (06:55)
[2023-09-16] MEDS ORDERED: GLYCOPYRROLATE INJ 0.2 MG/ML 2 ML VIAL As Ordered ONE (06:56)
[2023-09-16] MEDS ORDERED: ROCURONIUM BROMIDE 50MG/5ML VIAL As Ordered ONE (06:56)
[2023-09-16] MEDS ORDERED: LIDOCAINE 2% 100MG/5ML SDV (FOR ANES.) As Ordered ONE (06:56)
[2023-09-16] MEDS ORDERED: KETOROLAC 60MG 2ML VIAL As Ordered ONE (06:57)
[2023-09-16] MEDS ORDERED: METOCLOPRAMIDE INJ 10MG/2ML VIAL As Ordered ONE (07:01)
[2023-09-16] MEDS: CelecoXIB 400 MG CAP PO ONE (07:07)
[2023-09-16] MEDS: ALVIMOPAN 12 MG CAPSULE (ENTEREG) PO ONE (07:07)
[2023-09-16] MEDS: metroNIDAZOLE 500 MG in IV 1 EA IV ONE (07:07)
[2023-09-16] MEDS ORDERED: ONDANSETRON 4MG 2ML VIAL As Ordered ONE (07:18)
[2023-09-16] MEDS: HEPARIN SOD (PORCINE) 5000UNITS/ML 1ML VIAL/SYRINGE SQ ONE (07:25)
[2023-09-16] MEDS: INSULIN LISPRO (NovoLOG) PER UNIT SC PRN ×2 (07:32→13:19)
[2023-09-16] MEDS ORDERED: fentaNYL 100 MCG/2 ML INJECTION As Ordered ONE (07:37)
[2023-09-16] MEDS ORDERED: ATEN50TA2 PO (07:52)
[2023-09-16] MEDS ORDERED: TRUL10IN SC (07:52)
[2023-09-16] MEDS ORDERED: BISO5TAB14 PO (07:52)
[2023-09-16] MEDS ORDERED: ELIQ5TAB PO (07:52)
[2023-09-16] MEDS ORDERED: BASA100I SC (07:52)
[2023-09-16] MEDS ORDERED: DIGO0.259 PO (07:52)
[2023-09-16] MEDS ORDERED: HOME MED LIST COMPLETE! XX SCH (07:55)
[2023-09-16] MEDS: ceFAZolin 2 GM/D5W 50 ML IV BAG As Ordered ONE (08:06)
[2023-09-16] MEDS: ceFAZolin 1GM VIAL As Ordered ONE (08:06)
[2023-09-16] MEDS ORDERED: KETAMINE HCL 200MG/20ML VIAL As Ordered ONE (08:19)
[2023-09-16] MEDS ORDERED: dexmedeTOMIDine (4MCG/ML)200MCG/50ML BTL (PRECEDEX) As Ordered ONE (08:19)
[2023-09-16] MEDS ORDERED: PHENYLephrine 500MCG 5ML (100MCG/ML) SYRINGE As Ordered ONE (08:24)
[2023-09-16] MEDS ORDERED: ACETAMINOPHEN 1000MG 100ML IV BAG As Ordered ONE (08:48)
[2023-09-16] MEDS ORDERED: SUGAMMADEX SODIUM 500 MG/5 ML VIAL (BRIDION) As Ordered ONE (09:33)
[2023-09-16] MEDS ORDERED: INDOCYANINE GREEN 25MG VIAL (IC-GREEN) As Ordered ONE (09:46)
[2023-09-16] MEDS ORDERED: ALBUTEROL 6.7GM INHALER **FOR ANES. CART/OMNICELL ONLY As Ordered ONE (10:02)
[2023-09-16] MEDS ORDERED: FUROSEMIDE 100MG/10ML VIAL As Ordered ONE (10:16)
[2023-09-16] MEDS ORDERED: DULC5TAB PO (10:44)
[2023-09-16] MEDS: LIDOCAINE 1% SDV 30ML VIAL As Ordered ONE (12:16)
[2023-09-16] MEDS ORDERED: ONDANSETRON 4MG 2ML VIAL IV PRN ×2 (12:20→12:30)
[2023-09-16] MEDS ORDERED: HYDROMORPHONE HCL 0.5 MG/ 0.5 ML SYRINGE IV PRN (12:25)
[2023-09-16] MEDS ORDERED: DEXTROSE 50% 50ML SYRINGE IV PRN ×2 (12:30→13:00)
[2023-09-16] MEDS ORDERED: PERCOCET 5MG/325MG TAB PO PRN (12:30)
[2023-09-16] MEDS ORDERED: GLUCAGON INJ 1MG VIAL SC PRN ×2 (12:30→13:00)
[2023-09-16] MEDS ORDERED: MORPHINE 4 MG/ML 1ML VIAL IV PRN (12:30)
[2023-09-16] MEDS ORDERED: GLUCOSE 4GM CHEW TABLET PO PRN ×2 (12:30→13:00)
[2023-09-16] MEDS: oxyCODONE 5MG TAB PO PRN (13:19)
[2023-09-16] MEDS ORDERED: VASOPRESSIN INJ 20UNITS/ML 1ML VIAL As Ordered ONE (13:46)
[2023-09-16 13:47] VITALS: BP 144/61; TEMP 96.9; O2SAT 95
[2023-09-16] MEDS: GABAPENTIN 400MG CAP PO SCH (15:42)
[2023-09-16] MEDS: KETOROLAC 30 MG/ML 1ML VIAL IV SCH (15:42)
[2023-09-16] MEDS: LR 1,000 ML IV SCH (15:43)
[2023-09-16 16:39] VITALS: BP 140/71; TEMP 97.9; O2SAT 96
[2023-09-16] MEDS: INSULIN LISPRO (NovoLOG) PER UNIT SC SCH (18:14)
[2023-09-16 20:04] VITALS: BP 126/78; TEMP 98; O2SAT 95
[2023-09-16] MEDS: atenoloL 50 MG TAB PO SCH (21:01)
[2023-09-16] MEDS: UNRESOLVED CLARIFICATION ENTRY XX STA (22:47)
[2023-09-16 23:05] VITALS: BP 116/65; TEMP 97.6; O2SAT 97
[2023-09-17] MEDS ORDERED: UNRESOLVED CLARIFICATION ENTRY XX SCH (00:01)
[2023-09-17 03:49] VITALS: BP 121/70; TEMP 97; O2SAT 95
[2023-09-17 05:02] LABS: BASO % 0.3 % (0.0-1.0); EOS # 0.1 10^3/uL (0.0-0.5); EOS % 1.1 % (0.0-3.0); HEMATOCRIT 45.7 % (42.0-52.0); HEMOGLOBIN 15.2 g/dl (13.5-17.5); LYMPH # 2.5 10^3/uL (1.5-5.0); LYMPH % 20.4 % (24.0-44.0); MEAN CORPUSCULAR HEMOGLOBIN 29.9 pg (27.0-33.0); MEAN CORPUSCULAR HGB CONC 33.3 g/dl (32.0-36.5); MONO # 1.3 10^3/uL (0.0-0.8); MONO % 10.4 % (2.0-8.0); NEUTROPHILS # 8.1 10^3/uL (1.5-8.5); NEUTROPHILS % 67.5 % (36.0-66.0); PLATELET COUNT, AUTOMATED 238 10^3/uL (150-450); RED BLOOD COUNT 5.08 10^6/uL (4.30-6.10)
[2023-09-17 05:26] LABS: BLOOD UREA NITROGEN 14 MG/DL (9-23); CALCIUM LEVEL 7.3 MG/DL (8.3-10.6); CARBON DIOXIDE LEVEL 27 MMOL/L (20-31); CHLORIDE LEVEL 104 MMOL/L (98-107); CREATININE FOR GFR 0.81 MG/DL (0.70-1.30); GLOMERULAR FILTRATION RATE > 60.0 (>49); GLUCOSE, FASTING 164 MG/DL (74-106); SODIUM LEVEL 136 MMOL/L (136-145)
[2023-09-17 07:59] VITALS: BP 131/86; TEMP 97.6; O2SAT 96
[2023-09-17] MEDS: DIGOXIN 0.25 MG TAB PO SCH (09:02)
[2023-09-17] MEDS: ATORVASTATIN 20 MG TAB PO SCH (09:03)
[2023-09-17] MEDS: ENOXAPARIN 40MG/0.4ML SYRINGE (J1650 PER 10MG) SC SCH (09:03)
[2023-09-17] MEDS: PANTOPRAZOLE 40MG VIAL IV SCH (09:04)
[2023-09-17] MEDS: ALVIMOPAN 12 MG CAPSULE (ENTEREG) PO SCH (11:12)
[2023-09-17] MEDS: PERCOCET 5MG/325MG TAB PO PRN (11:13)
[2023-09-17] MEDS: CYCLOBENZAPRINE 10MG TABLET PO PRN (11:14)
[2023-09-17 11:36] VITALS: BP 132/77; TEMP 97.6; O2SAT 98
[2023-09-17] MEDS: INFLUENZA QUADRIVALENT PF VACCINE 0.5ML SYRINGE IM.IMMUN ONE (12:31)
[2023-09-17 15:27] VITALS: O2SAT 95
[2023-09-17] MEDS: INSULIN LISPRO (NovoLOG) PER UNIT SC SCH ×2 (18:01→21:00)
[2023-09-17 19:27] VITALS: BP 119/61; TEMP 97.6; O2SAT 95
[2023-09-17] MEDS: GLIMEPIRIDE 2 MG TAB PO SCH (21:20)
[2023-09-17] MEDS: LEVEMIR (INSULIN DETEMIR) 1 UNITS/0.01ML SC SCH (21:20)
[2023-09-17] MEDS: metFORMIN (GLUCOPHAGE) 1000MG TABLET PO SCH (21:22)
[2023-09-18 03:58] VITALS: BP 114/61; TEMP 98.1; O2SAT 95
[2023-09-18 05:37] LABS: BASO # 0.1 10^3/uL (0.0-0.2); BASO % 0.5 % (0.0-1.0); EOS # 0.5 10^3/uL (0.0-0.5); EOS % 5.1 % (0.0-3.0); HEMATOCRIT 43.5 % (42.0-52.0); HEMOGLOBIN 14.2 g/dl (13.5-17.5); LYMPH # 2.2 10^3/uL (1.5-5.0); LYMPH % 20.6 % (24.0-44.0); MEAN CORPUSCULAR HGB CONC 32.6 g/dl (32.0-36.5); MEAN CORPUSCULAR VOLUME 91.8 fl (80.0-96.0); MONO % 9.3 % (2.0-8.0); NEUTROPHILS # 6.7 10^3/uL (1.5-8.5); NEUTROPHILS % 64.2 % (36.0-66.0); PLATELET COUNT, AUTOMATED 215 10^3/uL (150-450); RED BLOOD COUNT 4.74 10^6/uL (4.30-6.10); WHITE BLOOD COUNT 10.5 10^3/uL (4.0-10.0)
[2023-09-18 06:04] LABS: BLOOD UREA NITROGEN 14 MG/DL (9-23); CALCIUM LEVEL 7.9 MG/DL (8.3-10.6); CARBON DIOXIDE LEVEL 27 MMOL/L (20-31); CHLORIDE LEVEL 109 MMOL/L (98-107); CREATININE FOR GFR 0.74 MG/DL (0.70-1.30); GLOMERULAR FILTRATION RATE > 60.0 (>49); GLUCOSE, FASTING 102 MG/DL (74-106); POTASSIUM SERUM 3.9 MMOL/L (3.5-5.1); SODIUM LEVEL 140 MMOL/L (136-145)
[2023-09-18 08:00] VITALS: BP 118/72; TEMP 96.2; O2SAT 99
[2023-09-18 15:43] VITALS: BP 152/81; TEMP 97.5; O2SAT 99
[2023-09-18 16:41] VITALS: BP 159/92; TEMP 97.5; O2SAT 99
[2023-09-18 22:00] VITALS: BP 133/81; TEMP 97.7; O2SAT 98
[2023-09-19 06:00] VITALS: BP 131/83; TEMP 97; O2SAT 97
[2023-09-19 06:34] LABS: BASO # 0.1 10^3/uL (0.0-0.2); BASO % 0.5 % (0.0-1.0); EOS # 0.8 10^3/uL (0.0-0.5); EOS % 7.6 % (0.0-3.0); HEMATOCRIT 43.4 % (42.0-52.0); HEMOGLOBIN 14.3 g/dl (13.5-17.5); LYMPH # 2.2 10^3/uL (1.5-5.0); LYMPH % 20.6 % (24.0-44.0); MEAN CORPUSCULAR HGB CONC 32.9 g/dl (32.0-36.5); MONO # 0.9 10^3/uL (0.0-0.8); MONO % 8.2 % (2.0-8.0); NEUTROPHILS # 6.8 10^3/uL (1.5-8.5); NEUTROPHILS % 62.7 % (36.0-66.0); PLATELET COUNT, AUTOMATED 250 10^3/uL (150-450); RED BLOOD COUNT 4.77 10^6/uL (4.30-6.10); WHITE BLOOD COUNT 10.9 10^3/uL (4.0-10.0)
[2023-09-19 08:08] VITALS: BP 134/83
[2023-09-19] MEDS ORDERED: PERCOCET PO (09:43)
== END 2023-09-19 11:50 | disposition home or self-care (01) | DRG 221 ==
LOC: M OR 06:14 → M PCU 13:45 → M MSPAV 09-18 16:41
PROVIDERS: ADMIT Surgery; ATTEND Surgery
PROC: 0DBB4ZZ Excision of Ileum, Percutaneous Endoscopic Approach (ICD-10-PCS; 2023-09-16)
PROC: 0DTJ4ZZ Resection of Appendix, Percutaneous Endoscopic Approach (ICD-10-PCS; 2023-09-16)
PROC: 8E0W4CZ Robotic Assisted Procedure of Trunk Region, Percutaneous Endoscopic Approach (ICD-10-PCS; 2023-09-16)
PROC: 0DBH4ZZ Excision of Cecum, Percutaneous Endoscopic Approach (ICD-10-PCS; principal; 2023-09-16 07:30)
DX: D12.0 Benign neoplasm of cecum (principal); Z68.41 Body mass index [BMI] 40.0-44.9, adult; E66.01 Morbid (severe) obesity due to excess calories; I48.91 Unspecified atrial fibrillation; I10 Essential (primary) hypertension; E11.9 Type 2 diabetes mellitus without complications; K21.9 Gastro-esophageal reflux disease without esophagitis; E78.00 Pure hypercholesterolemia, unspecified; Z79.82 Long term (current) use of aspirin; Z79.84 Long term (current) use of oral hypoglycemic drugs; Z79.4 Long term (current) use of insulin; Z79.899 Other long term (current) drug therapy; Z88.8 Allergy status to other drugs, medicaments and biological substances; Z11.52 Encounter for screening for COVID-19

== ENCOUNTER → 2023-12-18 | Outpatient (CLI) | payer OTHER ==
[~2023-12-18] MED LIST changes: +BASA100I SC; +BISO5TAB14 PO; +DIGO0.259 PO; +DULC5TAB PO; +METR-265 PO; +MIRA3350 PO; +NEOM500T PO; +PERCOCET PO; +TRUL10IN SC; -ceFAZolin SOD 2 GM in IV 1 EA IV ONE
[2023-12-18 13:53] LABS: HEMOGLOBIN A1c 8.6 % (4.0-6.0)
[2023-12-18 14:03] LABS: BASO # 0.1 10^3/uL (0.0-0.2); BASO % 0.6 % (0.0-1.0); EOS # 0.5 10^3/uL (0.0-0.5); EOS % 3.6 % (0.0-3.0); HEMATOCRIT 49.1 % (42.0-52.0); HEMOGLOBIN 16.3 g/dl (13.5-17.5); LYMPH # 3.8 10^3/uL (1.5-5.0); LYMPH % 26.1 % (24.0-44.0); MEAN CORPUSCULAR HEMOGLOBIN 30.1 pg (27.0-33.0); MEAN CORPUSCULAR HGB CONC 33.2 g/dl (32.0-36.5); MEAN CORPUSCULAR VOLUME 90.6 fl (80.0-96.0); MONO # 1.2 10^3/uL (0.0-0.8); MONO % 8.1 % (2.0-8.0); NEUTROPHILS # 8.8 10^3/uL (1.5-8.5); PLATELET COUNT, AUTOMATED 297 10^3/uL (150-450); RED BLOOD COUNT 5.42 10^6/uL (4.30-6.10); WHITE BLOOD COUNT 14.4 10^3/uL (4.0-10.0)
[2023-12-18 14:10] LABS: ALBUMIN 3.7 G/DL (3.2-5.2); ALKALINE PHOSPHATASE 108 U/L (46-116); ALT/SGPT 36 U/L (7.0-40); AST/SGOT 16 U/L (<34); BILIRUBIN,TOTAL 0.6 MG/DL (0.3-1.2); BLOOD UREA NITROGEN 14 MG/DL (9-23); CALCIUM LEVEL 9.1 MG/DL (8.3-10.6); CARBON DIOXIDE LEVEL 28 MMOL/L (20-31); CHLORIDE LEVEL 100 MMOL/L (98-107); CHOLESTEROL LEVEL 124 MG/DL (<200); CHOLESTEROL RISK RATIO 2.92 (<5); CREATININE FOR GFR 0.76 MG/DL (0.70-1.30); FERRITIN 45.4 NG/ML (10.5-307.3); GLOMERULAR FILTRATION RATE > 60.0 (>49); GLUCOSE, FASTING 196 MG/DL (74-106); HDL CHOLESTEROL 42.4 MG/DL (>40); LDL CHOLESTEROL 54.4 MG/DL (<100); NON-HDL-C 81.6 MG/DL; POTASSIUM SERUM 4.5 MMOL/L (3.5-5.1); SODIUM LEVEL 136 MMOL/L (136-145); TRIGLYCERIDES LEVEL 136 MG/DL (<150)
== END ==
LOC: M PLALAB 09:41
PROVIDERS: ATTEND Physician Assistant
DX: E11.8 Type 2 diabetes mellitus with unspecified complications (principal)

== ENCOUNTER → 2023-12-25 | Outpatient (REF) | payer OTHER | LOC: M SFHCPLAZ 17:28 | PROVIDERS: ATTEND Family Medicine | DX: I50.32 Chronic diastolic (congestive) heart failure (principal); D50.9 Iron deficiency anemia, unspecified; Z12.5 Encounter for screening for malignant neoplasm of prostate; K74.00 Hepatic fibrosis, unspecified ==

== ENCOUNTER → 2024-01-19 | Outpatient (CLI) | payer OTHER ==
[~2024-01-19] MED LIST changes: +PROHANCE 279.3MG/ML 15ML VIAL ONE; +PROHANCE 279.3MG/ML 5ML VIAL ONE
== END ==
LOC: M PLAIMG 14:17
PROVIDERS: ATTEND Family Medicine
DX: M89.8X8 Other specified disorders of bone, other site (principal); M47.12 Other spondylosis with myelopathy, cervical region; M51.26 Other intervertebral disc displacement, lumbar region; M25.78 Osteophyte, vertebrae; M99.71 Connective tissue and disc stenosis of intervertebral foramina of cervical region
CPT/HCPCS: 72141; 72158; A9576

== ENCOUNTER → 2024-05-06 | Outpatient (CLI) | payer OTHER ==
[~2024-05-06] MED LIST changes: +GABA-1635 PO; -GABA800T4 PO; -PROHANCE 279.3MG/ML 15ML VIAL ONE; -PROHANCE 279.3MG/ML 5ML VIAL ONE
[2024-05-06 12:40] LABS: BASO # 0.1 10^3/uL (0.0-0.2); BASO % 0.7 % (0.0-1.0); EOS # 0.3 10^3/uL (0.0-0.5); EOS % 2.5 % (0.0-3.0); HEMATOCRIT 47.5 % (42.0-52.0); LYMPH # 2.6 10^3/uL (1.5-5.0); LYMPH % 19.4 % (24.0-44.0); MEAN CORPUSCULAR HEMOGLOBIN 29.1 pg (27.0-33.0); MEAN CORPUSCULAR HGB CONC 31.6 g/dl (32.0-36.5); MEAN CORPUSCULAR VOLUME 92.1 fl (80.0-96.0); MONO # 1.2 10^3/uL (0.0-0.8); MONO % 8.9 % (2.0-8.0); NEUTROPHILS % 68.1 % (36.0-66.0); PLATELET COUNT, AUTOMATED 324 10^3/uL (150-450); RED BLOOD COUNT 5.16 10^6/uL (4.30-6.10); WHITE BLOOD COUNT 13.2 10^3/uL (4.0-10.0)
[2024-05-06 12:42] LABS: ALBUMIN 3.6 G/DL (3.2-5.2); ALKALINE PHOSPHATASE 103 U/L (40-129); ALT/SGPT 23 U/L (7.0-40); AST/SGOT 18 U/L (<34); BILIRUBIN,TOTAL 0.7 MG/DL (0.3-1.2); BLOOD UREA NITROGEN 15 MG/DL (9-23); CALCIUM LEVEL 9.8 MG/DL (8.3-10.6); CARBON DIOXIDE LEVEL 28 MMOL/L (20-31); CHLORIDE LEVEL 106 MMOL/L (98-107); CREATININE FOR GFR 0.86 MG/DL (0.70-1.30); GLOMERULAR FILTRATION RATE > 60.0 (>49); GLUCOSE, FASTING 65 MG/DL (74-106); POTASSIUM SERUM 4.4 MMOL/L (3.5-5.1); PSA SCREENING 0.51 NG/ML (< 4.00); SODIUM LEVEL 141 MMOL/L (136-145); TOTAL PROTEIN 7.3 G/DL (5.7-8.2)
[2024-05-06 12:46] LABS: FERRITIN 41.8 NG/ML (10.5-307.3); THYROID STIMULATING HORMONE 2.857 uIU/ML (0.55-4.78)
[2024-05-06 12:50] LABS: INR 1.1; PARTIAL THROMBOPLASTIN TIME 35.9 SECONDS (24.8-34.2); PROTHROMBIN TIME 14.5 SECONDS (12.5-14.5)
== END ==
LOC: M PLALAB 09:21
PROVIDERS: ATTEND Family Medicine
DX: D50.9 Iron deficiency anemia, unspecified (principal); I50.32 Chronic diastolic (congestive) heart failure; Z12.5 Encounter for screening for malignant neoplasm of prostate; K74.00 Hepatic fibrosis, unspecified

== ENCOUNTER → 2024-09-22 | Outpatient (CLI) | payer OTHER ==
[2024-09-22 13:09] LABS: BASO # 0.1 10^3/uL (0.0-0.2); BASO % 0.7 % (0.0-1.0); EOS # 0.5 10^3/uL (0.0-0.5); EOS % 4.7 % (0.0-3.0); HEMATOCRIT 46.9 % (42.0-52.0); HEMOGLOBIN 15.1 g/dl (13.5-17.5); LYMPH # 2.8 10^3/uL (1.5-5.0); LYMPH % 26.2 % (24.0-44.0); MEAN CORPUSCULAR HEMOGLOBIN 28.9 pg (27.0-33.0); MEAN CORPUSCULAR HGB CONC 32.2 g/dl (32.0-36.5); MEAN CORPUSCULAR VOLUME 89.8 fl (80.0-96.0); MONO # 1.1 10^3/uL (0.0-0.8); MONO % 10.6 % (2.0-8.0); NEUTROPHILS # 6.2 10^3/uL (1.5-8.5); NEUTROPHILS % 57.5 % (36.0-66.0); PLATELET COUNT, AUTOMATED 285 10^3/uL (150-450); RED BLOOD COUNT 5.22 10^6/uL (4.30-6.10); WHITE BLOOD COUNT 10.7 10^3/uL (4.0-10.0)
[2024-09-22 13:19] LABS: CHOLESTEROL RISK RATIO 2.73 (<5); HDL CHOLESTEROL 37.7 MG/DL (>40); LDL CHOLESTEROL 40.9 MG/DL (<100); NON-HDL-C 65.3 MG/DL
[2024-09-22 13:20] LABS: PTH INTACT 45.4 PG/ML (18.5-88.0)
[2024-09-22 13:25] LABS: TOTAL 25(OH) VITAMIN D 60.6 NG/ML (20.0-100.0)
[2024-09-22 13:29] LABS: HEMOGLOBIN A1c 6.8 % (4.0-6.0)
== END ==
LOC: M PLALAB 10:00
PROVIDERS: ATTEND Family Medicine
DX: E11.8 Type 2 diabetes mellitus with unspecified complications (principal); E55.9 Vitamin D deficiency, unspecified; E78.2 Mixed hyperlipidemia; D50.9 Iron deficiency anemia, unspecified

== ENCOUNTER → 2024-09-30 | Outpatient (REF) | payer OTHER | LOC: M SFHCPLAZ 12:31 | PROVIDERS: ATTEND Family Medicine | DX: D50.9 Iron deficiency anemia, unspecified (principal); E78.2 Mixed hyperlipidemia; E11.8 Type 2 diabetes mellitus with unspecified complications; E55.9 Vitamin D deficiency, unspecified; I50.32 Chronic diastolic (congestive) heart failure; Z12.5 Encounter for screening for malignant neoplasm of prostate ==

== ENCOUNTER → 2024-10-13 | Outpatient (CLI) | payer OTHER | LOC: M RAD 07:44 | PROVIDERS: ATTEND Family Medicine | DX: K74.00 Hepatic fibrosis, unspecified (principal) ==

== ENCOUNTER → 2025-04-04 | Outpatient (CLI) | payer OTHER ==
[2025-04-04 11:07] LABS: BASO # 0.1 10^3/uL (0.0-0.2); BASO % 0.8 % (0.0-1.0); EOS # 0.6 10^3/uL (0.0-0.5); EOS % 4.9 % (0.0-3.0); LYMPH # 3.5 10^3/uL (1.5-5.0); LYMPH % 27.0 % (24.0-44.0); MONO # 1.1 10^3/uL (0.0-0.8); MONO % 8.7 % (2.0-8.0); NEUTROPHILS # 7.6 10^3/uL (1.5-8.5); NEUTROPHILS % 58.1 % (36.0-66.0); PLATELET COUNT, AUTOMATED 264 10^3/uL (150-450)
[2025-04-04 11:25] LABS: ESTIMATED AVERAGE GLUCOSE 160.0 MG/DL (60-110)
[2025-04-04 11:37] LABS: ALT/SGPT 25 U/L (7.0-40); AST/SGOT 18 U/L (<34); CALCIUM LEVEL 9.4 MG/DL (8.3-10.6); CARBON DIOXIDE LEVEL 32 MMOL/L (20-31); CHLORIDE LEVEL 101 MMOL/L (98-107); CPK CREATINE PHOSPHOKINASE 98 U/L (46-171); CREATININE FOR GFR 0.76 MG/DL (0.70-1.30); GLOMERULAR FILTRATION RATE > 90.0 (>49); MAGNESIUM LEVEL 1.7 MG/DL (1.8-2.4); POTASSIUM SERUM 4.8 MMOL/L (3.5-5.1); PSA SCREENING 0.66 NG/ML (< 4.00); SODIUM LEVEL 140 MMOL/L (136-145)
== END ==
LOC: M PLALAB 08:07
PROVIDERS: ATTEND Family Medicine
DX: E78.2 Mixed hyperlipidemia (principal); I50.32 Chronic diastolic (congestive) heart failure; Z12.5 Encounter for screening for malignant neoplasm of prostate; E11.8 Type 2 diabetes mellitus with unspecified complications; D50.9 Iron deficiency anemia, unspecified

== ENCOUNTER → 2025-05-03 | Outpatient (CLI) | payer OTHER | LOC: M PLAIMG 07:58 | PROVIDERS: ATTEND Family Medicine | DX: R91.1 Solitary pulmonary nodule (principal) ==